=== PATIENT | female | born 1950 | race Caucasian/White ===

== ENCOUNTER 2016-06-29 07:36 | Day surgery (SDC) | payer OTHER ==
[~2016-06-29] VITALS: Ht 152.4 cm; Wt 104.3 kg
[2016-06-29 07:45] VITALS: BP 166/79; PULSE 76; RESP 17; TEMP 99.1; O2SAT 95
[2016-06-29] MEDS ORDERED: LEVO125T4 PO (08:34)
[2016-06-29] MEDS ORDERED: METF1000 PO (08:34)
[2016-06-29] MEDS ORDERED: ASPI1TAB69 PO (08:34)
[2016-06-29] MEDS ORDERED: VITA10003 PO (08:34)
[2016-06-29 08:46] LABS: AUTOMATED NEUTROPHIL # 3.8 TH/MM3 (1.8-7.7); BASOPHIL % 0.7 % (0.0-2.0); EOSINOPHIL # 0.2 TH/MM3 (0-0.4); EOSINOPHIL % 3.1 % (0.0-4.0); HEMATOCRIT 39.6 % (39.0-51.0); HEMO FLAGS DIFF FINAL; LYMPHOCYTE # 2.1 TH/MM3 (1.0-4.8); MEAN CELL VOLUME 93.6 FL (80.0-100.0); MEAN CORPUSCULAR HEMOGLOBIN 31.4 PG (27.0-34.0); MEAN CORPUSCULAR HGB CONC 33.6 % (32.0-36.0); MONO % 9.3 % (0.0-8.0); NEUT % 55.9 % (16.0-70.0); PLATELET COUNT 285 TH/MM3 (150-450); RED BLOOD COUNT 4.23 MIL/MM3 (4.50-5.90); RED CELL DISTRIBUTION WIDTH 12.8 % (11.6-17.2); WHITE BLOOD COUNT 6.9 TH/MM3 (4.0-11.0)
[2016-06-29] MEDS ORDERED: diphenhydrAMINE HCL 50 MG CAP PO SCH (09:00)
[2016-06-29] MEDS ORDERED: NS 1000P @30 MLS/HR (KVO) IV SCH (09:00)
[2016-06-29 09:07] LABS: APTT (PATIENT) 31.3 SEC (24.3-30.1); INTERNATIONAL NORMALIZED RATIO 1.3 RATIO; PROTHROMBIN TIME - PATIENT 14.2 SEC (9.8-11.6)
[2016-06-29 09:20] LABS: BICARBONATE 35.9 MEQ/L (21.0-32.0); POTASSIUM 3.9 MEQ/L (3.5-5.1)
[2016-06-29] MEDS ORDERED: HEPARIN-NS/PF INJ 500 ML ONE ×2 (09:40→09:47)
[2016-06-29] MEDS ORDERED: MIDAZOLAM HCL 2 MG/2 ML VIAL ONE (09:47)
[2016-06-29] MEDS ORDERED: ONDANSETRON HCL 4 MG/2 ML VIAL IV PRN (11:00)
[2016-06-29] MEDS ORDERED: MISC INFORMATION XX ONE (11:00)
[2016-06-29] MEDS ORDERED: ATROPINE SULFATE 1 MG/ML VIAL IV PRN (11:00)
--- NOTE | 2016-06-29 11:33 | MA ---
cc: DEJAN ACZARES DATE 06/29/2016 DATE OF 06/17/1952 PROCEDURE PERFORMED 1. Left heart catheterization 2. Selective right and left coronary angiography 3. Right heart cath catheterization INDICATIONS Symptomatic severe aortic stenosis/preoperative evaluation/[place] [employer] three symptoms. 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 The right groin was groin was prepped and draped in a sterile fashion. Using 1% lidocaine for local anesthesia and a micropuncture kit, a 5-Finnish sheath was inserted into the right common femoral artery. A 7-Finnish sheath was inserted into the right femoral vein. Right common femoral artery angiography was performed to confirm position of the sheath. Then a 7-Finnish [place] was floated under fluoroscopy to which right heart pressures were recorded, as well as O2 saturations in each chamber of the right heart. After we were finished with the right heart cath, we did a selective right and left coronary angiography with a JR-4 and a JL-4 diagnostic catheters. Angiography was taken in multiple views. The patient tolerated the procedure well without complications. Estimated blood loss less than 30 cc. Total contrast used 40 cc. The right groin access site was closed with a basket closing device. RESULTS Right heart catheterization. Wedge pressure at 31. Pulmonary pressure 66/27 with a mean of 47. Right ventricular pressure 23/15 with a mean of 14. Right atrial pressure 64. Aortic pressure 160/76 with a mean of 110. ANGIOGRAPHY 1. Right coronary artery is a dominant vessel with minimal luminal irregularities, nonobstructive coronary artery disease patent with TRENTON-III flow. The PDA is also patent with TRENTON-III flow. 2. The left main patent with nonobstructive coronary artery disease. 3. The LAD is a transapical vessel. It has minimal luminal irregularities throughout with nonobstructive coronary artery disease. There are five diagonals which are small and patent. 4. The left circumflex artery is patent with nonobstructive coronary artery disease and has a small segment AV groove circ. 5. The ramus, there is a prominent ramus intermedius branch which is patent with TRENTON-III flow. CONCLUSION 1. Normal coronary arteries 2. Symptomatic severe aortic stenosis and mitral stenosis. RECOMMENDATIONS 1. The patient was consulted to CT surgery for AVR and MVR. 2. Repeat a 2-D echocardiogram today. 3. Continue current medications. MD YOANA Hernández/AL /11:09 AM /11:21 AM HUNTER
[2016-06-29] MEDS ORDERED: IOHEXOL 350 MG/ML 50 ML BTL (for Cath Lab) OTHER ONE (12:20)
--- NOTE | 2016-06-29 16:12 | RADRPT ---
EXAM DATE/TIME: 06/29/2016 15:46 [facility] COMPARISON: No previous studies available for comparison. INDICATIONS : Evaluate for pneumonia, pneumothorax, or communicable disease. Pre op for AVR. MEDICAL HISTORY : None. SURGICAL HISTORY : cardiac cath. ENCOUNTER: Initial ACUITY: 1 day PAIN SCORE: 0/10 LOCATION: Bilateral chest FINDINGS: PA and lateral views of the chest show mild cardia megaly. Interstitial prominence within the bases. No effusions or intra-alveolar infiltrates. Bony structures are unremarkable. CONCLUSION: Cardiomegaly with interstitial prominence at the bases. Interstitial prominence could relate to mild interstitial pulmonary edema or chronic interstitial changes. Yasmany Forde Jr., MD on June 29, 2016 at 16:08 Board Certified Radiologist. This report was verified electronically.
[2016-06-29 16:13] LABS: BACTERIA, URINE RARE /hpf; BLOOD, URINE SMALL (NEG); COMMENT (UR) CULT NOT INDICATED; CULTURE IF INDICATED CULT NOT INDICATED; GLUCOSE,URINE NEG (NEG); KETONE, URINE NEG (NEG); NITRITE,URINE NEG (NEG); SQUAMOUS EPITHELIAL CELL URINE 2 /hpf (0-5); URINE COLOR YELLOW (YELLW/STRAW)
--- NOTE | 2016-06-29 17:03 | ECHLIM ---
Study Study Date:06/29/2016 STUDY CONCLUSIONS SUMMARY - Left ventricle: The cavity size was normal. Wall thickness was increased in a pattern of moderate LVH. Systolic function was vigorous. The estimated ejection fraction was in the range of 65% to 70%. Wall motion was normal; there were no regional wall motion abnormalities. - Aortic valve: Transvalvular velocity was increased. There was severe stenosis. Mild to moderate regurgitation. Valve area: 0.56cm^2(VTI). Valve area: 0.7cm^2 (Vmax). - Mitral valve: Moderately calcified annulus. Mildly calcified leaflets, . Transvalvular velocity was within the normal range. The findings are consistent with moderate to severe stenosis. Mild regurgitation. Valve area by pressure half-time: 1.36cm^2. Valve area by continuity equation (using LVOT flow): 0.6cm^2. - Left atrium: The atrium was moderately dilated. - Tricuspid valve: Mild-moderate regurgitation. - Pulmonary arteries: Systolic pressure was mildly increased. If LV function is below 40, please consider prescribing an ACEI or ARB or document rationale for non-use. PROCEDURE DATA STUDY STATUS: Elective. Procedure: Transthoracic echocardiography. Image quality was good. Scanning was performed from the parasternal, apical, and subcostal acoustic windows. Study completion: The patient tolerated the procedure well. Transthoracic echocardiography. M-mode, complete 2D, complete spectral Doppler, and color Doppler. Height: Height: 60in. Weight: Weight: 228.5lb. Body mass index: BMI: 44.7kg/m^2. Body surface area: BSA: 1.98m^2. Patient status: Inpatient. CARDIAC ANATOMY LEFT VENTRICLE: The cavity size was normal. Wall thickness was increased in a pattern of moderate LVH. Systolic function was vigorous. The estimated ejection fraction was in the range of 65% to 70%. Wall motion was normal; there were no regional wall motion abnormalities. AORTIC VALVE: Trileaflet; moderately thickened leaflets. Doppler: Transvalvular velocity was increased. There was severe stenosis. Mild to moderate regurgitation. Valve area: 0.56cm^2(VTI). Indexed valve area: 0.28cm^2/m^2 (VTI). Valve area: 0.7cm^2 (Vmax). Indexed valve area: 0.35cm^2/m^2 (Vmax). Mean gradient: 35mm Hg (S). Peak gradient: 77mm Hg (S). AORTA: Aortic root: The aortic root was normal in size. MITRAL VALVE: Moderately calcified annulus. Mildly calcified leaflets, . Doppler: Transvalvular velocity was within the normal range. The findings are consistent with moderate to severe stenosis. Mild regurgitation. Valve area by pressure half-time: 1.36cm^2. Indexed valve area by pressure half-time: 0.69cm^2/m^2. Valve area by continuity equation (using LVOT flow): 0.6cm^2. Indexed valve area by continuity equation (using LVOT flow): 0.3cm^2/m^2. Mean gradient: 14mm Hg (D). Peak gradient: 24mm Hg (D). LEFT ATRIUM: The atrium was moderately dilated. RIGHT VENTRICLE: The cavity size was normal. Wall thickness was normal. PULMONIC VALVE: Doppler: Transvalvular velocity was within the normal range. There was no evidence for stenosis. No regurgitation. TRICUSPID VALVE: Structurally normal valve. Doppler: Transvalvular velocity was within the normal range. Mild-moderate regurgitation. PULMONARY ARTERY: The main pulmonary artery was normal-sized. Systolic pressure was mildly increased. RIGHT ATRIUM: The atrium was normal in size. PERICARDIUM: There was no pericardial effusion. SYSTEMIC VEINS: Not visualized. Patient weight: 228.5lb _Ejection fraction:_ 65-75% _Fractional shortening:_ 32% up to 5Kg 5-11.5Kg 11.6-22.9Kg 23-45Kg 45-57Kg Aortic Root 7-13 <17 13-22 17-27 17-27 LA diam 6-13 <23 24-38 33-47 37-40 RVID 10-17 7-15 7-15 7-18 8-17 LVIDd 12-22 <32 24-38 33-47 37-40 LVPW 2-4 3-6 5-7 6-8 7-8 IVS 2-4 3-6 5-7 6-8 7-8 BASIC MEASUREMENTS ADULT NORMAL Aorta Root diameter, ED 28 mm DOPPLER MEASUREMENTS ADULT NORMAL Aortic valve Peak velocity, S 409 cm/s Mean velocity, S 269 cm/s VTI, S 80.9 cm Mean gradient, S 35 mm Hg Peak gradient, S 77 mm Hg Valve area, VTI 0.56 cm^2 Valve area index, VTI 0.28 cm^2/m^2 Valve area, Vmax 0.7 cm^2 Valve area index, Vmax 0.35 cm^2/m^2 Regurgitant velocity, ED 519 cm/s Regurgitant deceleration 3130 cm/s^2 Regurgitant pressure half-time 486 ms Regurgitant gradient, ED 108 mm Hg Mitral valve Peak E-wave velocity 206 cm/s Mean velocity, D 181 cm/s Deceleration time *280 ms 150-230 Pressure half-time 108 ms Mean gradient, D 14 mm Hg Peak gradient, D 24 mm Hg Valve area, pressure half-time 1.36 cm^2 Valve area index, pressure half-time 0.69 cm^2/m^2 Valve area, LVOT continuity 0.6 cm^2 Valve area index, LVOT continuity 0.3 cm^2/m^2 Tricuspid valve Regurgitant peak velocity 324 cm/s Peak RV-RA gradient, S 42 mm Hg Maximal regurgitant velocity 324 cm/s LEGEND: Mean values are shown as u=mean value. Asterisk (*) olguin values outside specified normal range. Amended Jermain Gaston [id number]
--- NOTE | 2016-06-29 17:56 | RADRPT ---
EXAM DATE/TIME: 06/29/2016 16:51 [facility] COMPARISON: No previous studies available for comparison. INDICATIONS : Preop cardiac surgery. MEDICAL HISTORY : Thyroid disease. Hypertension. Diabetes. SURGICAL HISTORY : Cardiac catheterization. ENCOUNTER: Initial ACUITY: 1 day PAIN SCORE: 0/10 LOCATION: Bilateral neck PEAK SYSTOLIC VELOCITIES (cm/sec): ICA/CCA RATIO: Right: 1.0 Left: 1.3 ICA: Right: 79 Left: 101 CCA: Right: 80 Left: 78 ECA: Right: 119 Left: 113 VERTEBRAL: Right: 54 antegrade Left: 44 antegrade Elevated flow velocities and ICA/CCA ratios have been found to correlate with increased degrees of vessel stenosis, calculated as percentage of diameter relative to a normal segment of distal ICA/CCA FINDINGS: RIGHT CAROTID: Minimal plaquing in the carotid bulb. No significant stenosis. The waveforms are within normal limit s. LEFT CAROTID: Minimal plaquing in the carotid bulb. No significant stenosis. The waveforms are within normal limit s. VERTEBRAL ARTERIES: Antegrade flow is seen in both vertebral arteries. MISCELLANEOUS: None. CONCLUSION: 1. Minimal plaquing in the carotid bulbs bilaterally. 2. However, no Doppler sonographic findings of a hemodynamically significant stenosis. Antegrade flow in both vertebral arteries. Joni Miller MD on June 29, 2016 at 17:30 Board Certified Radiologist. This report was verified electronically.
--- NOTE | 2016-06-29 19:58 | EKG ---
Date Performed: 06/29/2016 Time Performed: 08:52:28 PTAGE: 66 years EKG: Sinus rhythm with 1st degree A-V block Mild diffuse ST elevation Abnormal ECG NO PREVIOUS TRACING DOCTOR: Chloé Garcia Interpretating Date/Time 06/29/2016 19:57:30
--- NOTE | 2016-06-30 08:37 | MB ---
cc: REBECCA ROSENBERG MD DATE OF CONSULTATION: 06/29/2016 DATE OF : 1950 HISTORY OF PRESENT ILLNESS: This is a 66-year-old patient of Dr. 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 Bashir Tanner, and also Dr. Jermain Gaston, apparently was referred to [facility] for history of recently diagnosed aortic stenosis. Apparently she had rheumatic fever as a child. She has been reported to have persistent dyspnea and fatigue for the last few months. She had some bronchitis back in February, March, and in April she still was not feeling better and saw her primary care physician, underwent echocardiogram which showed severe aortic stenosis, also mitral valve disease. Repeat echocardiogram was done today and we were consulted to evaluate for aortic valve and mitral valve replacement. PAST MEDICAL HISTORY: 1. Hyperlipidemia. 2. Hypertension. 3. Hypothyroidism. 4. Heart murmur. 5. Obesity. 6. Rheumatic fever as a child. 7. Type 2 diabetes mellitus. PAST SURGICAL HISTORY: 1. Cholecystectomy. 2. Hernia repair. 3. Some fibroids removed from her uterus in the past. ALLERGIES: None known. HOME MEDICATIONS: 1. Levothyroxine 125 mics daily. 2. Metformin 1000 b.i.d. 3. Aspirin 81 p.o. daily. FAMILY HISTORY Mother at age 58 from chronic kidney disease. Father from 88 old age. SOCIAL HISTORY The patient . No tobacco or alcohol. She has five children. She moved here from [place] in 1970. REVIEW OF SYSTEMS In general, no night sweats, fever, heat and cold intolerance. Skin: No psoriasis, itching or hives. HEENT: No blurred vision, hearing loss. Respiratory: Positive for shortness of breath. Cardiovascular: No chest pain. No paroxysmal nocturnal dyspnea, no orthopnea. Gastrointestinal: No diarrhea, vomiting. Genitourinary: No burning, frequency, urgency. 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 Endocrinology: Positive for hypothyroidism and diabetes. PHYSICAL EXAMINATION: VITAL SIGNS: Blood pressure 160/80, heart rate of 76, temperature 99. GENERAL: The patient is awake, alert, no acute distress. HEAD: Head is normocephalic, atraumatic. Pupils equal and reactive. Oral mucosa pink, moist. NECK: Supple. No JVD. HEART: Heart sounds, grade 3 to 4/6 systolic murmur noted. No thrills. No rubs or gallops. LUNGS: Clear to auscultation. No wheezes, rales or rhonchi. ABDOMEN: Soft, nontender. No masses or organomegaly. EXTREMITIES: No cyanosis, clubbing or edema. LABORATORY FINDINGS Shows hemoglobin of 13, hematocrit of 39, white cell count 6.9, platelet count 285, sodium 138, potassium 3.9, BUN 10, creatinine 0.59, glucose 140, INR 1.3. IMPRESSION This is a very pleasant 66-year-old female with a history of aortic stenosis. Repeat echo also showing mitral valve disease. The cardiac films and echo will be evaluated by Dr. Rebecca Rosenberg, and evaluated for mitral valve and aortic valve surgery depending upon his decision. Will bring the patient back for surgery. We will order in the meantime, carotid ultrasounds, pulmonary function testing, and some further lab work. Dictated by: NILAY Solorio Rebecca SZYMANSKI/CHRIS /3:40 PM /8:36 AM
--- NOTE | 2016-06-30 09:03 | RSPPFT ---
DATE OF PROCEDURE: 06/29/16 COMMENTS: VOLUMES DYNAMIC: FVC and FEV1 severely reduced. FLOWS: FEV1% normal; FEF 25-75 severely reduced. IMPRESSION: Probable restrictive ventilatory defect although full lung volumes would be necessary to document this. There is some terminal airflow obstruction. Post-bronchodilator study may also be helpful if clinically indicated.
--- NOTE | 2016-06-30 12:22 | EC ---
Study Study Date:06/29/2016 STUDY CONCLUSIONS SUMMARY - Left ventricle: The cavity size was normal. Wall thickness was normal. Systolic function was normal. The estimated ejection fraction was in the range of 55% to 60%. Wall motion was normal; there were no regional wall motion abnormalities. - Aortic valve: Valve area: 1.06cm^2(VTI). Valve area: 1.07cm^2 (Vmax). - Pulmonic valve: Peak gradient: 26mm Hg (S). Recommendations: Immediate repeat study should be performed. If LV function is below 40, please consider prescribing an ACEI or ARB or document rationale for non-use. PROCEDURE DATA STUDY STATUS: Elective. Procedure: Transthoracic echocardiography. Image quality was good. Scanning was performed from the parasternal, apical, and subcostal acoustic windows. Study completion: The patient tolerated the procedure well. Transthoracic echocardiography. M-mode, complete 2D, complete spectral Doppler, and color Doppler. Height: Height: 60in. Weight: Weight: 228.5lb. Body mass index: BMI: 44.7kg/m^2. Body surface area: BSA: 1.98m^2. Patient status: Inpatient. CARDIAC ANATOMY LEFT VENTRICLE: The cavity size was normal. Wall thickness was normal. Systolic function was normal. The estimated ejection fraction was in the range of 55% to 60%. Wall motion was normal; there were no regional wall motion abnormalities. AORTIC VALVE: Trileaflet; normal thickness leaflets. Doppler: No regurgitation. Valve area: 1.06cm^2(VTI). Indexed valve area: 0.54cm^2/m^2 (VTI). Valve area: 1.07cm^2 (Vmax). Indexed valve area: 0.54cm^2/m^2 (Vmax). Mean gradient: 25mm Hg (S). Peak gradient: 45mm Hg (S). AORTA: Aortic root: The aortic root was normal in size. MITRAL VALVE: Structurally normal valve. Doppler: No regurgitation. Indexed valve area by pressure half-time: 1.01cm^2/m^2. Indexed valve area by continuity equation (using LVOT flow): 0.48cm^2/m^2. Mean gradient: 12mm Hg (D). Peak gradient: 20mm Hg (D). LEFT ATRIUM: The atrium was normal in size. RIGHT VENTRICLE: The cavity size was normal. Wall thickness was normal. PULMONIC VALVE: Doppler: Transvalvular velocity was within the normal range. There was no evidence for stenosis. No regurgitation. Peak gradient: 26mm Hg (S). TRICUSPID VALVE: Structurally normal valve. Doppler: Transvalvular velocity was within the normal range. No regurgitation. Peak gradient: 44mm Hg (D). PULMONARY ARTERY: The main pulmonary artery was normal-sized. Systolic pressure was within the normal range. RIGHT ATRIUM: The atrium was normal in size. PERICARDIUM: There was no pericardial effusion. SYSTEMIC VEINS: Inferior vena cava: The vessel was normal in size. Patient weight: 228.5lb _Ejection fraction:_ 65-75% _Fractional shortening:_ 32% up to 5Kg 5-11.5Kg 11.6-22.9Kg 23-45Kg 45-57Kg Aortic Root 7-13 <17 13-22 17-27 17-27 LA diam 6-13 <23 24-38 33-47 37-40 RVID 10-17 7-15 7-15 7-18 8-17 LVIDd 12-22 <32 24-38 33-47 37-40 LVPW 2-4 3-6 5-7 6-8 7-8 IVS 2-4 3-6 5-7 6-8 7-8 BASIC MEASUREMENTS ADULT NORMAL Left ventricle LV internal dimension, ED, chordal 49.4 mm 43-52 level, PLAX LV internal dimension, ES, chordal 33.4 mm 23-38 level, PLAX Fractional shortening, chordal level, 32 % >29 PLAX LV posterior wall thickness, ED 18.3 mm IVS/LVPW ratio, ED 0.99 <1.3 Ventricular septum Septal thickness, ED 18.1 mm Aortic valve Leaflet separation 18 mm 15-26 Left atrium Anterior-posterior dimension 43 mm Anterior-posterior dimension index 2.17 cm/m^2 <2.2 BASIC MEASUREMENTS ADULT NORMAL Aortic valve Leaflet separation 18 mm 15-26 Aorta Root diameter, ED 30 mm 20-37 DOPPLER MEASUREMENTS ADULT NORMAL Main pulmonary artery Pressure, S 25 mm Hg =30 Aortic valve Peak velocity, S 337 cm/s Mean velocity, S 233 cm/s VTI, S 80.4 cm Mean gradient, S 25 mm Hg Peak gradient, S 45 mm Hg Valve area, VTI 1.06 cm^2 Valve area index, VTI 0.54 cm^2/m^2 Valve area, Vmax 1.07 cm^2 Valve area index, Vmax 0.54 cm^2/m^2 Regurgitant velocity, ED 471 cm/s Regurgitant deceleration 3280 cm/s^2 Regurgitant pressure half-time 421 ms Regurgitant gradient, ED 89 mm Hg Mitral valve Peak E-wave velocity 202 cm/s Peak A-wave velocity 227 cm/s Mean velocity, D 160 cm/s Pressure half-time 110 ms Mean gradient, D 12 mm Hg Peak gradient, D 20 mm Hg Peak E/A ratio 0.9 Valve area index, pressure half-time 1.01 cm^2/m^2 Valve area index, LVOT continuity 0.48 cm^2/m^2 Tricuspid valve Peak gradient, D 44 mm Hg Maximal inflow velocity 332 cm/s Regurgitant peak velocity 319 cm/s Peak RV-RA gradient, S 41 mm Hg Maximal regurgitant velocity 319 cm/s Systemic veins Estimated CVP 10 mm Hg Right ventricle RV pressure, S *51 mm Hg <30 Pulmonic valve Peak velocity, S 256 cm/s Peak gradient, S 26 mm Hg LEGEND: Mean values are shown as u=mean value. Asterisk (*) olguin values outside specified normal range. Prepared and signed by Jermain Gaston [id number]
[2016-06-30 18:59] LABS: HEMOGLOBIN Ao 83.4 %; HEMOGLOBIN F 1.1 %; HEMOGLOBIN LA1C 1.8 %; HEMOGLOBIN P3 3.8 %
== END 2016-06-29 17:39 | disposition home or self-care (01) ==
LOC: EDSEX → HDOC 07:36 → HDIC 07:36 → HDOC 17:39
PROVIDERS: ATTEND Radiology Vascular & Interventional Radiology
DX: I08.0 Rheumatic disorders of both mitral and aortic valves (principal); I25.10 Atherosclerotic heart disease of native coronary artery without angina pectoris; I10 Essential (primary) hypertension; E11.9 Type 2 diabetes mellitus without complications; E78.5 Hyperlipidemia, unspecified; E03.9 Hypothyroidism, unspecified; E07.9 Disorder of thyroid, unspecified; E66.9 Obesity, unspecified; Z68.41 Body mass index [BMI] 40.0-44.9, adult; Z79.01 Long term (current) use of anticoagulants; Z79.82 Long term (current) use of aspirin; Z79.84 Long term (current) use of oral hypoglycemic drugs; Z01.818 Encounter for other preprocedural examination
CPT/HCPCS: 71020; 80048; 81001; 82810; 83036; 85025; 85610; 85730; 87641; 93005; 93306; 93308; 93457; 93880; 94010; C1760; C1769; C1893; G0269; J1644; J2250; J3010; Q0163; Q9967

== ENCOUNTER 2016-07-01 13:58 | Inpatient (IN) | payer OTHER, MEDICARE ==
[~2016-07-01] VITALS: Ht 152.4 cm; Wt 106.5 kg
[~2016-07-01 13:58] MED LIST: ASPI1TAB69 PO; LEVO125T4 PO; METF1000 PO; VITA10003 PO
[2016-07-13] VITALS (13 sets, daily range): BP systolic 79–185; BP diastolic 40–100; PULSE 60–93; RESP 12–18; TEMP 97.5–98.9; O2SAT 91–97
[2016-07-13] MEDS ORDERED: LIDOCAINE HCL 2% 100 MG/5 ML SYRINGE IV PUSH ONE (05:00)
[2016-07-13] MEDS ORDERED: AMINOCAPROIC ACID INJ 250 MG/ML 20 ML VIAL IV ONE (05:00)
[2016-07-13] MEDS ORDERED: EPINEPHrine HCL (1:1000) 1 MG/ML VIAL IV ONE (05:00)
[2016-07-13] MEDS ORDERED: MAGNESIUM SULFATE 1000 MG/2 ML VIAL (PED) IV ONE (05:00)
[2016-07-13] MEDS ORDERED: CALCIUM CHLORIDE 10% SOLN 1 GRAM/10 ML SYR IV ONE (05:00)
[2016-07-13] MEDS ORDERED: NITROGLYCERIN-DEXTROSE INJ 250 ML IV ONE (05:00)
[2016-07-13] MEDS ORDERED: ceFAZolin INJ 1,000 MG VIAL IV ONE (05:00)
[2016-07-13] MEDS ORDERED: VECURONIUM BROMIDE 10 MG VIAL IV ONE (05:00)
[2016-07-13] MEDS ORDERED: PROTAMINE SULFATE 250 MG/25 ML VIAL IV ONE (05:00)
[2016-07-13] MEDS ORDERED: HEPARIN SODIUM - SQ 10,000 UNITS/ML VIAL SQ ONE (05:00)
[2016-07-13] MEDS ORDERED: PHENYLEPHRINE HCL 10 MG/ML VIAL IV ONE (05:00)
[2016-07-13] MEDS ORDERED: ceFAZolin 2 GM PREMIX 50 ML ONE (06:32)
[2016-07-13] MEDS ORDERED: HEPARIN SODIUM - SQ 10,000 UNITS/ML VIAL ONE (06:32)
[2016-07-13] MEDS ORDERED: VANCOMYCIN HCL 1000 MG VIAL ONE (06:32)
[2016-07-13] MEDS ORDERED: METOPROLOL TARTRATE 25 MG TAB ONE (06:33)
[2016-07-13] MEDS ORDERED: CUSTODIOL HTK IRR SOLN 1,000 ML ONE ×3 (06:38→11:32)
[2016-07-13] MEDS ORDERED: ALBUMIN HUMAN 25% 12.5 GM/50 ML BAGP IV ONE (06:39)
[2016-07-13] MEDS ORDERED: POTASSIUM CHLORIDE 40 MEQ/20 ML VIAL ONE (06:39)
[2016-07-13] MEDS ORDERED: MANNITOL INJ 50 ML ONE (06:40)
[2016-07-13] MEDS ORDERED: HEPARIN SODIUM - IV 10,000 UNITS/10 ML VIAL ONE (06:41)
[2016-07-13] MEDS ORDERED: CHOL100013 PO (06:42)
[2016-07-13] MEDS ORDERED: METOPROLOL TARTRATE 25 MG TAB PO PRN (06:45)
[2016-07-13] MEDS ORDERED: CHLORHEXIDINE GLUCONATE 2 % 1 PACK (2 CLOTHS) TOPICAL PRN (06:45)
[2016-07-13] MEDS ORDERED: POVIDONE IODINE 5% (ANTISEPSIS KIT) 4 APPLICATIONS EACH NARE PRN (06:45)
[2016-07-13] MEDS ORDERED: LACTATED RINGER'S 1000 ML IV PRN (06:45)
[2016-07-13] MEDS ORDERED: SODIUM CHLORID 0.9% 500 ML IV PRN (06:45)
[2016-07-13] MEDS ORDERED: INSULIN HUMAN REGULAR 1,000 UNITS/10 ML VIAL SQ PRN (06:45)
[2016-07-13] MEDS ORDERED: PAPAVERINE 60 MG-NITROGLYCERIN 100 MCG-DILTIAZEM 100 MG in NS 100 ML IRRIGATION SCH ×4 (07:00)
[2016-07-13] MEDS ORDERED: CEFAZOLIN 500 MG in NS IRR BTL 500 ML IRRIGATION SCH (07:00)
[2016-07-13] MEDS ORDERED: ceFAZolin 2 GM PREMIX 50 ML IV SCH (07:00)
[2016-07-13] MEDS ORDERED: CHLORHEXIDINE GLUCONATE 4% SOLN 120 ML BTL TOPICAL SCH (07:00)
[2016-07-13] MEDS ORDERED: METOPROLOL TARTRATE 25 MG TAB PO SCH (07:00)
[2016-07-13] MEDS ORDERED: INSULIN REGULAR 100 UNITS in NS 100 ML IV SCH (07:00)
[2016-07-13] MEDS ORDERED: LACTATED RINGER'S 1000 ML INJ 500 ML IV PRN (13:52)
[2016-07-13] MEDS ORDERED: CALCIUM CHLORIDE INJ 1 GM in SODIUM CHLORIDE 0.9% INJ 100 ML IV PRN (14:00)
[2016-07-13] MEDS ORDERED: ACETAMINOPHEN/HYDROcodone 325 MG/5 MG TAB PO PRN ×2 (14:00)
[2016-07-13] MEDS ORDERED: ALBUMIN HUMAN 5% 12.5 GM/250 ML BOTTLE IV PRN (14:00)
[2016-07-13] MEDS ORDERED: ACETAMINOPHEN 650 MG SUPP RECTAL PRN (14:00)
[2016-07-13] MEDS ORDERED: CALCIUM CHLORIDE 10% 1 GRAM/10 ML VIAL IV PRN (14:00)
[2016-07-13] MEDS ORDERED: hydrALAZINE HCL 20 MG/ML VIAL IV PRN (14:00)
[2016-07-13] MEDS ORDERED: POTASSIUM CHLOR 20 MEQ PREMIX 100 ML IV PRN ×3 (14:00)
[2016-07-13] MEDS ORDERED: DEXTROSE 50% IN WATER 50 ML VIAL(D50) IV PUSH PRN (14:00)
[2016-07-13] MEDS ORDERED: MORPHINE SULFATE 4 MG/ML INJ IV PRN (14:00)
[2016-07-13] MEDS ORDERED: METOPROLOL TARTRATE 5 MG/5 ML VIAL IV PUSH PRN (14:00)
[2016-07-13] MEDS ORDERED: MAGNESIUM SULFATE INJ 2 GM in SODIUM CHLORIDE 0.9% INJ 100 ML IV PRN ×4 (14:00)
[2016-07-13] MEDS ORDERED: MEPERIDINE HCL 25 MG/ML VIAL IV PRN (14:00)
[2016-07-13] MEDS ORDERED: SODIUM BICARBONATE 8.4% INJ 50 ML ONE (14:15)
[2016-07-13] MEDS ORDERED: Post-op Orders (for Pharmacy) MISC OTHER ONE (14:42)
[2016-07-13] MEDS ORDERED: INSULIN REGULAR (IV INFUSION) 100 UNITS in SODIUM CHLORIDE 0.9% INJ 99 ML IV SCH (15:00)
[2016-07-13] MEDS ORDERED: PHENYLEPHRINE INJ 40 MG in DEXTROSE 5% IN WATE 500 ML INJ 496 ML IV SCH ×2 (15:00)
[2016-07-13] MEDS ORDERED: DOPamine INJ PREMIX 500 ML IV SCH (15:00)
[2016-07-13] MEDS ORDERED: NITROGLYCERIN-DEXTROSE INJ 250 ML IV SCH (15:00)
[2016-07-13] MEDS ORDERED: EPINEPHrine (1:1000) INJ 4 MG in DEXTROSE 5% IN WATER INJ 246 ML IV SCH ×2 (15:00)
[2016-07-13] MEDS ORDERED: DEXMEDETOMIDINE INJ 200 MCG in SODIUM CHLORIDE 0.9% INJ 50 ML IV SCH (15:00)
[2016-07-13] MEDS: DOBUTamine PREMIX DRIP 250 ML IV SCH (15:00)
[2016-07-13] MEDS ORDERED: CLEVIDIPINE INJ 50 ML IV SCH (15:00)
[2016-07-13] MEDS ORDERED: DEXAMETHASONE SOD PHOS 20 MG/5 ML VIAL ONE (15:02)
[2016-07-13] MEDS ORDERED: MIDAZOLAM HCL 5 MG/5 ML VIAL ONE (15:08)
[2016-07-13] MEDS ORDERED: fentaNYL CITRATE 1000 MCG/20 ML VIAL ONE (15:08)
--- NOTE | 2016-07-13 15:53 | RADRPT ---
EXAM DATE/TIME: 07/13/2016 14:43 [facility] COMPARISON: CHEST PA & LAT, June 29, 2016, 15:46. INDICATIONS : Status post CABG. MEDICAL HISTORY : None. SURGICAL HISTORY : None. ENCOUNTER: Subsequent ACUITY: 1 day PAIN SCORE: Non-responsive. LOCATION: chest FINDINGS: Portable AP view of the chest demonstrates cardiac silhouette size at the upper limits for normal. Pa tient is now post median sternotomy and CABG. ETT is present with distal tip measuring 2.9 cm from th e rick. Nasogastric tube is looped in the stomach and left subclavian central line tip is in the SV C. Mediastinal drain is present. No pneumothorax is identified. There is bilateral lower lung zone in terstitial opacity. No pleural effusion is seen. CONCLUSION: 1. Bilateral lower lung zone interstitial opacity could represent atelectasis versus consolidation. 2. Endotracheal tube tip measures 2.9 cm from the rick. Calvin Calderon MD on July 13, 2016 at 15:50 Board Certified Radiologist. This report was verified electronically.
[2016-07-13] MEDS ORDERED: POTASSIUM CHLORIDE 20 MEQ CONTROLLED RELEASE TAB PO PRN ×2 (16:00)
[2016-07-13] MEDS: ACETAMINOPHEN 1000 MG/100 ML VIAL IV SCH ×2 (16:24→21:03)
--- NOTE | 2016-07-13 16:24 | PD.OP ---
cc: Jermain Gaston MD; Dell Shaerer MD Operative Report Date of Surgery: Jul 13, 2016 Preoperative Diagnosis: Postoperative Diagnosis: Procedure: 1. Aortic Valve Replacement with a 21mm Mosaic Cinch II Tissue valve. 2. Mitral Valve Replacement with a 25 mm Mosaic Cinch Tissue Valve. 3. Septal Myomectomy . Surgeon: Dell Shearer Drycleaner(s): A Sujey Operation and Findings: PREOPERATIVE DIAGNOSES 1. Severe Aortic Stenosis. 2. Moderate Aortic Insufficiency 3. Severe Mitral Stenosis 4. Moderate Mitral Insufficiency 5. Subaortic Stenosis POSTOPERATIVE DIAGNOSES Same SURGICAL PROCEDURE 1. Aortic Valve Replacement with a 21mm Mosaic Cinch II Tissue valve. 2. Mitral Valve Replacement with a 25 mm Mosaic Cinch Tissue Valve. 3. Septal Myomectomy TECHNICAL SOLUTIONS ENGINEER WEN Mclaughlin ANESTHESIA General endotracheal. SHEAR SCRAPMAN Shaquille Weathers CRNA, Gautam Pruett MD PREPARATION ChloraPrep. NEEDLE, SPONGE AND INSTRUMENT COUNT Correct. DRAINS One 32-Setswana mediastinal tube. COMPLICATIONS None. INDICATIONS The patient is an 66 -year-old with severe aortic stenosis, insufficiency and severe mitral stenosis and regurgitation, presenting for surgical correction of the above pathology. DESCRIPTION OF PROCEDURE The patient was brought to the operating room and placed supine on the OR table. Following the induction of adequate general endotracheal anesthesia and placement of appropriate monitoring devices, the patient was then prepped and draped in the standard sterile fashion. Intraoperative JERONIMO revealed a very small aortic annulus with severe and moderate AI, severe MS and moderate MR as well as significant LVOT obstruction with hypertrophic septum. Median sternotomy was performed, the pericardium was divided in the midline and the cradle created. The patient was systemically heparinized and anticoagulation monitored by serial ACT measurements. Then 2 pursestring sutures of 2-0 Ethibond were placed on the aorta proximal to the takeoff of the innominate artery, a purse-string of 4-0 Prolene was placed on the superior vena cava, a 2- 0 Ethibond was placed on the right atrium for the inferior vena cava and a final 4-0 Prolene on the RSPV for the LV Vent. At this point, aortic and venous cannulae were introduced and attached to the arterial and venous components of the bypass circuit respectively. Antegrade cardioplegia cannula as well as the LV vent were also placed. The patient was placed on cardiopulmonary bypass and core cooling initiated to a temperature of 34 degrees centigrade. The crossclamp was applied and 1500 mL of antegrade cardioplegia solution ( [facility] HTK) was given in addition to topical cooling with slushed saline. Upon achieving adequate diastolic arrest of the heart a transverse aortotomy was performed. Direct intracoronary ostial cardioplegia was next administered into the left main and RCA respectively. The aortic valve was then excised and sent for microbiologic analysis. A right atriotomy was performed. Transeptal approach to the mitral valve was taken. The mitral valve was inspected and appeared to be severely calcified and rheumatic. Therefore plans were made to proceed with replacement of the mitral valve. The anterior leaflet was excised leaving secondary and tertiary chords intact. The posterior annulus was very heavily calcified. Decalcification was performed to allow suture passage. Horizontal mattress sutures of interrupted 2-0 Ethibond were placed on the mitral annulus with pledgets on the ventricular side. After adequate sizing, a 25 mm Mosaic Cinch Mitral valve was brought in the surgical field and the sutures passed through the skirt and the valve was situated and anchored with the Cor-Knot device. This appeared to be a good fit. The septum was next closed in 2 layers. This was with 4-0 Prolene; the 1st layer being horizontal mattress , the 2nd layer being running baseball stitch. The right atrium was similarly closed in two layers of 4-0 Prolene. Next attention was turned towards the aortic annulus. Through the aortic valve, a limited septal myomectomy was performed to create a sufficient outflow channel. Intra-op JERONIMO had revealed the septum to be 2.5 cm at its thickest portion. Approx., 1cm thick segment of muscular septum was excised. Horizontal mattress sutures of interrupted 2-0 Ethibond were placed on the aortic annulus with pledgets on the ventricular side. After adequate sizing, a 21 mm Mosaic Cinch II valve was brought in the surgical field and the sutures passed through the skirt and the valve was situated and anchored with the Cor-Knot device. This appeared to be a good fit. Gradual rewarming was initiated and the aortotomy closed in 2 layers. This was with 4-0 Prolene; the 1st layer being horizontal mattress, the 2nd layer being running baseball stitch.The cross clamp was removed and upon achieving normothermic cardiac activity, patient was weaned from CPB without any difficulty. Transesophageal echocardiography revealed a well-situated aortic and mitral prostheses with no evidence of perivalvular leak and no valvular stenosis or regurgitation. The septum appeared intact with improved LVOT. Protamine was given. Decannulation was performed and all sites were inspected for hemostasis. At this point the closure was undertaken. The pericardium was reapproximated in the midline. One 32-Fr chest tube was placed, and the sternum was reapproximated using stainless steel sternal wires. The musculo-fascial layer was then closed in 3 layers. The patient tolerated the procedure well and was transferred to open heart recovery in stable condition. Dell Shearer MD Jul 13, 2016 16:24
[2016-07-13] MEDS: ceFAZolin 2 GM PREMIX 50 ML IV SCH ×2 (16:25→23:02)
[2016-07-13] MEDS ORDERED: DEXAMETHASONE SOD PHOS 4 MG/ML VIAL IV PUSH SCH (18:00)
[2016-07-13] MEDS ORDERED: PROPOFOL 500 MG/50 ML INJ 50 ML ONE (19:04)
--- NOTE | 2016-07-13 19:05 | PD.CONS ---
[facility] Service Critical Care Medicine Consult Requested By Dr. Shearer Reason for Consult Critical care management, respiratory failure following AVR/MVR Primary Care Physician No Primary Care Physician History of Present Illness 66 yo Female with PMH of DM, hypertension, severe mitral stenosis/ aortic stenosis (gradient 33.6, valve area 0.84) secondary to rheumatic valvular disease, hypothyroidism, pulmonary HTN (RVSP 61 mm Hg). She has been experiencing dyspnea for several months and was referred by [facility] (Dr. Barber) for surgical evaluation. She has undergone bioprosthetic MVR/AVR by Dr. Shearer. Anesthesia records reviewed. She had a routine airway per documentation. She received 2500 crystalloid, 2200 Cell Saver in OR. Estimated blood loss was 250. Urine output 3 L. Postoperative JERONIMO demonstrated ejection fraction of 60%. She was undergoing postoperative vent weaning and had respiratory acidemia during C Pap trial a pH of 7.21/PaCO2 of 65/PA O2 of 64. She also had significant tongue swelling and absence of adequate endotracheal tube cuff leak. She was started on Decadron and critical care management medicine was consulted for assistance with ventilator management. Urine output has been 90 mL per hour for the last 3 hours. Hemoglobin 12.3. She is a lifetime nonsmoker. Obese. Past Family Social History Allergies: Coded Allergies: No Known Allergies (Unverified , 07/13/16) Past Medical History Aortic stenosis, mitral stenosis Hypertension Hyperlipidemia Diabetes Obesity Hypothyroidism History of Rheumatic fever Past Surgical History Cholecystectomy Hernia repair Uterine fibroid resection Reported Medications Metformin 1000 mg by mouth twice a day Aspirin 81 mill grams by mouth daily Levothyroxine 125 g by mouth daily Cholecalciferol 50,000 units by mouth weekly Family History Mother at age 58 from complications of chronic kidney disease Father at age 88 Social History Lifetime nonsmoker. No history of alcohol use. She has 5 children She is originally from [place] and relocated to the [place] in 1970. Physical Exam Vital Signs Vital Signs Date Time Temp Pulse Resp B/P Pulse Ox O2 Delivery O2 Flow Rate FiO2 07/13/16 18:33 96 50 07/13/16 18:15 94 50 07/13/16 17:33 95 50 07/13/16 16:00 65 07/13/16 15:39 96 Mechanical Ventilator 70 07/13/16 15:39 80 07/13/16 15:39 97.5 60 12 103/54 96 115/62 07/13/16 14:40 97 100 07/13/16 06:44 98.3 89 18 167/85 94 Physical Exam GENERAL: Obese, well-developed patient who is orotracheally intubated, on sedation but opens eyes, makes eye contact and follows commands. SKIN: Warm and dry, well perfused. No urticaria or rash. HEAD: Atraumatic. Normocephalic. EYES: Pupils equal and round, 2 mm and sluggishly reactive bilaterally.. No scleral icterus. Mild scleral edema bilaterally. ENT: No nasal bleeding or discharge. Mucous membranes pink and moist. She has no maxillary teeth. She does have mandibular teeth. Tongue has mild swelling. There is no laceration or bleeding. Mild face and lip swelling. NECK: Trachea midline. No JVD. CARDIOVASCULAR: Regular rate and rhythm, sinus rhythm on the monitor. No murmurs or rubs noted. CVP 14. Sternal dressing in place. Pacing wires in place. Mediastinal 32 F chest tube in place to -20 suction with 140 serous sanguinous output in the chamber. RESPIRATORY: Orotracheally intubated and on mechanical ventilation. Overbreathing vent but does remain synchronous. Clear to auscultation bilaterally. GASTROINTESTINAL: Abdomen soft, non-tender, nondistended. Bowel sounds present. OG in place with bilious output. : Quintanilla in place with yellow urine output. MUSCULOSKELETAL: Extremities without clubbing, cyanosis, or edema. NEUROLOGICAL: Awake and alert. Moves all extremities spontaneously without focal deficit. Follows commands with all extremities. Laboratory Laboratory Tests Test 07/13/16 07/13/16 06:30 06:43 Blood Type O POSITIVE O POSITIVE Antibody Screen NEGATIVE Crossmatch Leukocyte-Reduced Red Blood Cells Blood Bank Comment Date/Time Procedure Status Source Growth 07/13/16 10:20 Gram Stain - Final Resulted Wound Other 07/13/16 10:20 Wound Culture Resulted Wound Other Pending 07/13/16 10:20 Fungal Smear - Final Resulted Wound Other NO FUNGAL ELEMENTS SEEN. 07/13/16 10:20 Fungal Culture Resulted Wound Other Pending 07/13/16 10:20 Acid Fast Stain Received Wound Other Pending 07/13/16 10:20 Mycobacterial Culture Received Wound Other Pending Assessment and Plan Assessment and Plan NEURO: Postoperative pain/anxiety Propofol for sedation. Target RASS -2 Ofirmev 1 g IV every 6 hours. Hydrocodone as needed for pain Morphine as needed for breakthrough pain RESP: Acute respiratory failure Tongue swelling Decadron 6 month grams IV every 6 x4 doses. Will treat with steroids overnight and reassess tongue swelling and cuff leak in the morning with plan to extubate in am if improved. Will keep head of bed elevated. ACV tidal volume 525/rate 14/PEEP 8/FiO2 50%. Wean as tolerated for sat greater than 95%. CV: History of rheumatic heart disease Hypertension Severe Aortic stenosis/Moderate AI Severe Mitral stenosis/Moderate NH Subaortic stenosis Moderate to severe LVH Status post bioprosthetic MVR/AVR, septal myomectomy 07/13/16 (Dr. Shearer) Preoperative echocardiogram 05/12/16 severe aortic stenosis with mean gradient 33.6, valve area 0.84, moderate to severe LVH, EF 60-65%, diastolic dysfunction , moderate to severe left atrial dilation, normal RV function, RESP 61 mmHg, moderate mitral stenosis Cardiac catheterization 06/29/16normal coronaries. Amiodarone 200 g by mouth every 12 hours Aspirin 81 daily start 07/14 GI: Obesity Nothing by mouth. OGT tube to low intermittent wall suction. FEN/RENAL: Electrolyte replacement per CV surgery protocol Quintanilla in place. Monitor intake and output. Monitor creatinine. Avoid nephrotoxins. ID: Perioperative cefazolin received. Monitor for signs and symptoms of infection. HEME: Monitor CBC. ENDO: Diabetes mellitus Hypothyroidism Insulin drip per CV surgery protocol Continue synthroid 125 mcg daily 07/14 PROPH: Protonix 40 mg daily for stress ulcer prophylaxis. Teds for DVT prophylaxis. Pharmacologic DVT prophylaxis initiation when appropriate from CV surgery standpoint. ACCESS: Left subclavian introducer and triple lumen catheter placed 07/13/16 in OR #1; R radial art line placed in OR 07/13 #1. Discussed with bedside RN. Critical care time 60 minutes exclusive separately billable procedures. Yanni Sehpherd MD Jul 13, 2016 19:05
[2016-07-13] MEDS ORDERED: PROPOFOL 1000 MG/100 ML INJ 100 ML IV SCH (19:15)
[2016-07-13] MEDS: DEXAMETHASONE SOD PHOS 20 MG/5 ML VIAL IV SCH (20:57)
[2016-07-13] MEDS: PANTOPRAZOLE SODIUM 40 MG VIAL IV PUSH SCH (23:03)
[2016-07-14] VITALS (22 sets, daily range): BP systolic 85–150; BP diastolic 43–68; PULSE 78–97; RESP 14–22; TEMP 98.5–100.4; O2SAT 90–98
[2016-07-14] MEDS: DEXAMETHASONE SOD PHOS 20 MG/5 ML VIAL IV SCH (02:41)
[2016-07-14] MEDS: ACETAMINOPHEN 1000 MG/100 ML VIAL IV SCH ×2 (03:26→09:26)
[2016-07-14 05:09] LABS: HEMATOCRIT 35.2 % (35.0-46.0); MEAN CELL VOLUME 95.3 FL (80.0-100.0); MEAN CORPUSCULAR HEMOGLOBIN 30.6 PG (27.0-34.0); MEAN CORPUSCULAR HGB CONC 32.1 % (32.0-36.0); PLATELET COUNT 111 TH/MM3 (150-450); RED BLOOD COUNT 3.69 MIL/MM3 (4.00-5.30); RED CELL DISTRIBUTION WIDTH 12.6 % (11.6-17.2); REVIEW FLAG FINAL; WHITE BLOOD COUNT 13.2 TH/MM3 (4.0-11.0)
[2016-07-14 05:32] LABS: BICARBONATE 25.1 MEQ/L (21.0-32.0); MAGNESIUM 2.2 MG/DL (1.5-2.5); POTASSIUM 4.4 MEQ/L (3.5-5.1)
[2016-07-14] MEDS ORDERED: PANTOPRAZOLE SOD 40 MG DELAYED RELEASE TAB PO SCH (06:00)
--- NOTE | 2016-07-14 06:04 | RADRPT ---
EXAM DATE/TIME: 07/14/2016 05:23 [facility] COMPARISON: CHEST SINGLE AP, July 13, 2016, 14:43. INDICATIONS : Shortness of breath, possible pulmonary disease. MEDICAL HISTORY : None. SURGICAL HISTORY : None. ENCOUNTER: Subsequent ACUITY: 2 days PAIN SCORE: Non-responsive. LOCATION: Bilateral chest FINDINGS: A single view of the chest demonstrates patchy densities in the right lung slightly improved. Worseni ng left lower lobe consolidation. Endotracheal tube, nasogastric tube and left subclavian central lester e are stable in position. Osseous structures are intact. CONCLUSION: 1. Patchy densities in the right lung slightly improved. 2. Worsening left lower lobe consolidation. Chaparro Garcia MD on July 14, 2016 at 6:02 Board Certified Radiologist. This report was verified electronically.
[2016-07-14] MEDS ORDERED: FUROSEMIDE 40 MG/4 ML VIAL ONE (06:24)
--- NOTE | 2016-07-14 06:34 | HHI.CCPN ---
Subjective Remarks/Hospital Course 66 yo Female with PMH of DM, hypertension, severe mitral stenosis/ aortic stenosis (gradient 33.6, valve area 0.84) secondary to rheumatic valvular disease, hypothyroidism, pulmonary HTN (RVSP 61 mm Hg). She has been experiencing dyspnea for several months and was referred by [facility] (Dr. Barber) for surgical evaluation. She has undergone bioprosthetic MVR/AVR by Dr. Shearer. Anesthesia records reviewed. She had a routine airway per documentation. She received 2500 crystalloid, 2200 Cell Saver in OR. Estimated blood loss was 250. Urine output 3 L. Postoperative JERONIMO demonstrated ejection fraction of 60%. She was undergoing postoperative vent weaning and had respiratory acidemia during C Pap trial a pH of 7.21/PaCO2 of 65/PA O2 of 64. She also had significant tongue swelling and absence of adequate endotracheal tube cuff leak. She was started on Decadron and critical care management medicine was consulted for assistance with ventilator management. Urine output has been 90 mL per hour for the last 3 hours. Hemoglobin 12.3. She is a lifetime nonsmoker. Obese. SUBJ: Remains on 1mcg/min of neosynephrine. Wake up and follows commands. O2 sat 90% on 50 % FiO2. CXR bibasilar infiltrates. IV lasix 20 mg x1 given. Tongue swelling improved per RN Objective Vital Signs Date Time Temp Pulse Resp B/P Pulse Ox O2 Delivery O2 Flow Rate FiO2 07/14/16 04:20 90 50 07/14/16 03:00 99.5 93 14 113/52 122/52 07/14/16 03:00 Mechanical Ventilator Intake and Output 07/13/16 07/13/16 07/14/16 08:00 16:00 00:00 Intake Total 880 ml Output Total 940 ml Balance -60 ml Result Diagram: 07/14/16 0437 07/14/16 0437 Objective Remarks GENERAL: Obese, well-developed patient who is orotracheally intubated, on sedation but opens eyes, follows commands. SKIN: Warm and dry, well perfused. No urticaria or rash. HEAD: Atraumatic. Normocephalic. EYES: Pupils equal and round, 2 mm and sluggishly reactive bilaterally.. No scleral icterus. Mild scleral edema bilaterally. ENT: No nasal bleeding or discharge. Mucous membranes pink and moist. She has no maxillary teeth. She does have mandibular teeth. Tongue has mild swelling. There is no laceration or bleeding. Mild face and lip swelling. NECK: Trachea midline. No JVD. CARDIOVASCULAR: Regular rate and rhythm, sinus rhythm on the monitor. No murmurs or rubs noted. CVP 10. Sternal dressing in place. Pacing wires in place. Mediastinal 32 F chest tube in place to -20 suction with 110 serous sanguinous output overnight. RESPIRATORY: Orotracheally intubated and on mechanical ventilation. Overbreathing vent but does remain synchronous. Few rhonchi to auscultation bilaterally. GASTROINTESTINAL: Abdomen soft, non-tender, nondistended. Bowel sounds present. OG in place with bilious output. : Quintanilla in place with yellow urine output. MUSCULOSKELETAL: Extremities without clubbing, cyanosis, or edema. NEUROLOGICAL: Awake and alert. Moves all extremities spontaneously without focal deficit. Follows commands with all extremities. Urinary Catheter: Yes Assessment to: Continue Vascular Central Line Catheter: Yes Assessment to: Continue A/P Assessment and Plan NEURO: Postoperative pain/anxiety Propofol for sedation. Target RASS -2 Ofirmev 1 g IV every 6 hours. Hydrocodone as needed for pain Morphine as needed for breakthrough pain RESP: Acute respiratory failure Tongue swelling Bibasilar infiltrate/probable atelectasis Decadron 6 month grams IV every 6 x4 doses. Tongue swelling improving, check and cuff leak if positive, SBT with possible extubation ACV tidal volume 525/rate 14/PEEP 8/FiO2 50%. Wean as tolerated for sat greater than 90%. Increase PEEP to 10 Will keep head of bed elevated. CV: Severe Aortic stenosis/Moderate AI Severe Mitral stenosis/Moderate AR Subaortic stenosis Moderate to severe LVH Status post bioprosthetic MVR/AVR, septal myomectomy 07/13/16 (Dr. Shearer) History of rheumatic heart disease Hypertension Preoperative echocardiogram 05/12/16 severe aortic stenosis with mean gradient 33.6, valve area 0.84, moderate to severe LVH, EF 60-65%, diastolic dysfunction , moderate to severe left atrial dilation, normal RV function, RESP 61 mmHg, moderate mitral stenosis Cardiac catheterization 06/29/16normal coronaries. Amiodarone 200 g by mouth every 12 hours Aspirin 81 daily start 07/14 IV Lasix 20 mg x1 GI: Obesity Nothing by mouth. OGT tube to low intermittent wall suction. FEN/RENAL: Electrolyte replacement per CV surgery protocol Quintanilla in place. Monitor intake and output. Monitor creatinine. Avoid nephrotoxins. ID: Perioperative cefazolin received. Monitor for signs and symptoms of infection. Send sputum culture HEME: Monitor CBC. ENDO: Diabetes mellitus Hypothyroidism Insulin drip per CV surgery protocol Continue synthroid 125 mcg daily 07/14 PROPH: Protonix 40 mg daily for stress ulcer prophylaxis. Teds for DVT prophylaxis. Pharmacologic DVT prophylaxis initiation when appropriate from CV surgery standpoint. ACCESS: Left subclavian introducer and triple lumen catheter placed 07/13/16 in OR #2; R radial art line placed in OR 07/13 #2. Discussed with bedside RN. Critical care time 32 minutes exclusive separately billable procedures. Isidoro Simpson MD Jul 14, 2016 06:35
[2016-07-14] MEDS: DOBUTamine PREMIX DRIP 250 ML IV SCH (06:42)
[2016-07-14] MEDS: LEVOTHYROXINE SODIUM 125 MCG TAB PO SCH (07:00)
[2016-07-14] MEDS ORDERED: RESP: RACEPINEPHRINE 2.25% 0.5 ML NEB ONE (07:36)
[2016-07-14] MEDS ORDERED: RESP: ALBUTEROL 2.5 MG/IPRATROPIUM 0.5 MG NEB (SCH) ONE (07:37)
[2016-07-14] MEDS ORDERED: CHLORHEXIDINE 0.12% (ORAL KIT) 15 ML CUP MT SCH (08:00)
[2016-07-14] MEDS: ceFAZolin 2 GM PREMIX 50 ML IV SCH ×2 (08:17→16:50)
[2016-07-14] MEDS ORDERED: GLUCAGON 1 MG/ML VIAL OTHER PRN (09:00)
[2016-07-14] MEDS ORDERED: RESP: ALBUTEROL 2.5 MG/IPRATROPIUM 0.5 MG NEB (PRN) NEB (09:00)
[2016-07-14] MEDS ORDERED: DEXTROSE 50% IN WATER 50 ML VIAL(D50) IV PRN (09:00)
[2016-07-14] MEDS ORDERED: SOD PHOSPHATE/SOD BIPHOSPHATE (ADULT) ENEMA 133ML RECTAL PRN (09:00)
[2016-07-14] MEDS ORDERED: BISACODYL 10 MG SUPP RECTAL PRN (09:00)
[2016-07-14] MEDS ORDERED: RESP: RACEPINEPHRINE 2.25% 0.5 ML NEB NEB PRN (09:00)
[2016-07-14] MEDS: AMIODARONE 200 MG TAB PO SCH ×2 (09:08→20:48)
[2016-07-14] MEDS: ASPIRIN 81 MG CHEW TAB PO SCH (09:08)
[2016-07-14] MEDS ORDERED: RESP: ALBUTEROL 2.5 MG/IPRATROPIUM 0.5 MG NEB (SCH) NEB (10:00)
[2016-07-14] MEDS ORDERED: INSULIN DETEMIR 100 UNITS/ML VIAL SQ ONE (10:00)
[2016-07-14] MEDS: INSULIN ASPART SUPPLEMENTAL SCALE SQ SCH ×4 (10:10→22:00)
--- NOTE | 2016-07-14 10:16 | PD.CAR.PN ---
CVT Progress Note CVT: POD #: 1 Subjective/Hospital Course: 66/ female hx worsening dyspnea x 2 months , underwent ECHO showing severe , moderate Mitral stenosis EF 60% , cardiac cath revealed no evidence of coronary artery disease PMH: HLP, HTN, hypothyroidism, DM surgery: . 07/13 Aortic Valve Replacement with a 21mm Mosaic Cinch II Tissue valve. Mitral Valve Replacement with a 25 mm Mosaic Cinch Tissue Valve. Septal Myomectomy had some immediate postop tongue swelling, minimal cuff leak last pm, was followed by CCM given decadron q6hr, improved 07/14 extubated around 7am to NRB, very anxious , speaking alot of georgian and bible verses , anxiety improved when family arrived this am weaned off insulin gtt, get pt OOB, keep in CVICU until this afternoon, or weaned of high 02 requirement aggressive pulm toielting , CXR noted , left lower lobe consolidation Objective: GENERAL: anxious, alert to name and time SKIN: Warm and dry.prevena to chest HEAD: Normocephalic. EYES: No scleral icterus. No injection or drainage. NECK: Supple, trachea midline. No JVD or lymphadenopathy. CARDIOVASCULAR: Regular rate and rhythm without murmurs, gallops, or rubs. general edema RESPIRATORY: diminished in bases, chest tube to wall suction , no air leak Breath sounds equal bilaterally. No accessory muscle use. GASTROINTESTINAL: Abdomen soft, non-tender, nondistended. MUSCULOSKELETAL: No cyanosis, or edema. BACK: Nontender without obvious deformity. No CVA tenderness. Vital Signs Date Time Temp Pulse Resp B/P Pulse Ox O2 Delivery O2 Flow Rate FiO2 07/14/16 09:54 22 07/14/16 08:41 95 Non-Rebreather 07/14/16 08:09 95 Non-Rebreather 07/14/16 07:52 96 Non-Rebreather 15 100 07/14/16 07:28 90 Mechanical Ventilator 45 07/14/16 07:27 45 07/14/16 07:26 90 07/14/16 07:25 99.4 90 20 123/58 90 150/60 07/14/16 04:20 90 50 07/14/16 03:00 99.5 93 14 113/52 90 122/52 07/14/16 03:00 90 Mechanical Ventilator 50 07/14/16 03:00 50 07/14/16 03:00 80 07/14/16 01:00 107/51 116/49 07/14/16 00:55 90 50 07/14/16 00:00 94 50 07/14/16 00:00 85/45 95/43 07/13/16 23:50 18 07/13/16 23:00 93 07/13/16 23:00 95 Mechanical Ventilator 50 07/13/16 23:00 50 07/13/16 23:00 98.9 93 14 151/100 95 185/74 07/13/16 22:00 101/56 137/63 07/13/16 21:00 98/57 117/60 07/13/16 20:00 92/49 113/52 07/13/16 19:54 94 50 07/13/16 19:00 85 07/13/16 19:00 50 07/13/16 19:00 91 Mechanical Ventilator 50 07/13/16 19:00 98.6 85 14 79/40 91 07/13/16 18:33 96 50 07/13/16 18:15 94 50 07/13/16 17:33 95 50 07/13/16 16:00 65 07/13/16 15:39 96 Mechanical Ventilator 70 07/13/16 15:39 80 07/13/16 15:39 97.5 60 12 103/54 96 115/62 07/13/16 14:40 97 100 Labs: Laboratory Tests Test 07/14/16 04:37 White Blood Count 13.2 TH/MM3 (4.0-11.0) Red Blood Count 3.69 MIL/MM3 (4.00-5.30) Hemoglobin 11.3 GM/DL (11.6-15.3) Hematocrit 35.2 % (35.0-46.0) Mean Corpuscular Volume 95.3 FL (80.0-100.0) Mean Corpuscular Hemoglobin 30.6 PG (27.0-34.0) Mean Corpuscular Hemoglobin 32.1 % Concent (32.0-36.0) Red Cell Distribution Width 12.6 % (11.6-17.2) Platelet Count 111 TH/MM3 (150-450) Mean Platelet Volume 10.1 FL (7.0-11.0) Sodium Level 143 MEQ/L (136-145) Potassium Level 4.4 MEQ/L (3.5-5.1) Chloride Level 110 MEQ/L (98-107) Carbon Dioxide Level 25.1 MEQ/L (21.0-32.0) Anion Gap 8 MEQ/L (5-15) Blood Urea Nitrogen 21 MG/DL (7-18) Creatinine 0.60 MG/DL (0.50-1.00) Estimat Glomerular Filtration 100 ML/MIN Rate (>89) Random Glucose 117 MG/DL (74-106) Calcium Level 8.1 MG/DL (8.5-10.1) Magnesium Level 2.2 MG/DL (1.5-2.5) Result Diagram: 07/14/16 0437 07/14/16 0437 Telemetry: NSR (1) S/P MVR (mitral valve replacement) (2) S/P AVR (aortic valve replacement) Plan: ASA, amiodarone, start BB gentle diuresis wean 02, pulm toileting OOB/ PT keep in ICU till weaned off NRB mask (3) Hypertension Plan: controlled (4) Hypothyroidism Plan: resume home meds (5) Hyperlipemia Plan: on statin (6) Diabetes mellitus Plan: insulin sliding scale / diabetic diet consult certified diabetes educator Nicol Booth Jul 14, 2016 10:16
[2016-07-14] MEDS: MULTIVITAMINS/MINERALS THERAPEUTIC TAB PO SCH (10:32)
[2016-07-14] MEDS: MAGNESIUM HYDROXIDE SUSP 30 ML CUP PO SCH (10:33)
[2016-07-14] MEDS: METOPROLOL TARTRATE 25 MG TAB PO SCH ×2 (10:33→20:48)
[2016-07-14] MEDS: ONDANSETRON HCL 4 MG/2 ML VIAL IV PUSH PRN (11:15)
[2016-07-14] MEDS ORDERED: FUROSEMIDE 20 MG/2 ML VIAL IV PUSH ONE (12:00)
[2016-07-14] MEDS ORDERED: POTASSIUM CHLORIDE 10 MEQ CONTROLLED RELEASE TAB PO ONE (12:00)
[2016-07-14] MEDS: RESP: ALBUTEROL 2.5 MG/IPRATROPIUM 0.5 MG NEB (SCH) NEB ×2 (13:22→20:42)
[2016-07-14] MEDS: PANTOPRAZOLE SODIUM 40 MG VIAL IV PUSH SCH (20:48)
[2016-07-14] MEDS: SENNOSIDES 8.6 MG TAB PO SCH (20:48)
[2016-07-14] MEDS: DOCUSATE SODIUM 100 MG CAP PO SCH (20:48)
[2016-07-14] MEDS: KETOROLAC TROMETHAMINE 30 MG/ML (IVP) VIAL IV PUSH PRN (21:19)
[2016-07-15] VITALS (31 sets, daily range): BP systolic 119–144; BP diastolic 63–83; PULSE 74–102; RESP 16–22; TEMP 97.3–99.1; O2SAT 94–98
[2016-07-15] MEDS: ceFAZolin 2 GM PREMIX 50 ML IV SCH (00:23)
[2016-07-15] MEDS: INSULIN ASPART SUPPLEMENTAL SCALE SQ SCH ×6 (02:00→21:00)
[2016-07-15] MEDS: KETOROLAC TROMETHAMINE 30 MG/ML (IVP) VIAL IV PUSH PRN ×2 (03:10→13:33)
[2016-07-15 06:01] LABS: AUTOMATED NEUTROPHIL # 10.6 TH/MM3 (1.8-7.7); BASOPHIL % 0.2 % (0.0-2.0); EOSINOPHIL % 0.1 % (0.0-4.0); HEMATOCRIT 31.8 % (35.0-46.0); HEMO FLAGS DIFF FINAL; LYMPH % 16.3 % (9.0-44.0); LYMPHOCYTE # 2.5 TH/MM3 (1.0-4.8); MEAN CELL VOLUME 95.1 FL (80.0-100.0); MEAN CORPUSCULAR HEMOGLOBIN 31.9 PG (27.0-34.0); MEAN CORPUSCULAR HGB CONC 33.5 % (32.0-36.0); MONO % 13.6 % (0.0-8.0); NEUT % 69.8 % (16.0-70.0); PLATELET COUNT 112 TH/MM3 (150-450); RED BLOOD COUNT 3.35 MIL/MM3 (4.00-5.30); RED CELL DISTRIBUTION WIDTH 12.9 % (11.6-17.2); WHITE BLOOD COUNT 15.2 TH/MM3 (4.0-11.0)
[2016-07-15 06:03] LABS: ALKALINE PHOSPHATASE 56 U/L (45-117); ALT (GPT) 25 U/L (10-53); ANION GAP 5 MEQ/L (5-15); AST (GOT) 48 U/L (15-37); BICARBONATE 32.5 MEQ/L (21.0-32.0); BLOOD UREA NITROGEN 30 MG/DL (7-18); CHLORIDE 104 MEQ/L (98-107); GLOMERULAR FILTRATION RATE 83 ML/MIN (>89); MAGNESIUM 2.5 MG/DL (1.5-2.5); POTASSIUM 4.8 MEQ/L (3.5-5.1); SODIUM (NA) 141 MEQ/L (136-145); TOTAL BILIRUBIN ADULT 0.4 MG/DL (0.2-1.0)
[2016-07-15] MEDS: LEVOTHYROXINE SODIUM 125 MCG TAB PO SCH (06:19)
[2016-07-15] MEDS: RESP: ALBUTEROL 2.5 MG/IPRATROPIUM 0.5 MG NEB (SCH) NEB ×3 (07:26→19:44)
--- NOTE | 2016-07-15 07:29 | RADRPT ---
EXAM DATE/TIME: 07/15/2016 04:49 [facility] COMPARISON: CHEST SINGLE AP, July 14, 2016, 5:23. CHEST SINGLE AP, July 13, 2016, 14:43. INDICATIONS : Shortness of breath. MEDICAL HISTORY : None. SURGICAL HISTORY : None. ENCOUNTER: Subsequent ACUITY: 3 days PAIN SCORE: Non-responsive. LOCATION: Bilateral chest FINDINGS: A single view of the chest demonstrates the interval removal of the nasogastric and endotracheal tube . Less occluded second one in good position. Sternal wires and clips are stable. Persistent pulmonary hilar vascular congestion with small lung volumes. Suspect a small left pleural effusion. Osseous s tructures are intact. CONCLUSION: Swallow lungs remain status post extubation. Mild pulmonary vascular congestion. Jak Zamarripa MD on July 15, 2016 at 7:26 Board Certified Radiologist. This report was verified electronically.
--- NOTE | 2016-07-15 08:17 | EKG ---
Date Performed: 07/14/2016 Time Performed: 04:37:48 PTAGE: 66 years EKG: Sinus rhythm Left anterior fascicular block Inferior and lateral ST elevation - possible early repolarization Lat eral T wave changes are nonspecific Borderline ECG Since PREVIOUS TRACING , no significant change noted PREVIOUS TRACIN06/29/2016 08.52 DOCTOR: Rd Nguyen Interpretating Date/Time 07/15/2016 08:16:08
[2016-07-15] MEDS: POLYETHYLENE GLYCOL 17 GM PKG PO SCH (08:25)
[2016-07-15] MEDS: MAGNESIUM HYDROXIDE SUSP 30 ML CUP PO SCH (08:25)
[2016-07-15] MEDS: AMIODARONE 200 MG TAB PO SCH ×2 (08:25→21:29)
[2016-07-15] MEDS: DOCUSATE SODIUM 100 MG CAP PO SCH ×2 (08:25→21:29)
[2016-07-15] MEDS: ASPIRIN 81 MG CHEW TAB PO SCH (08:26)
[2016-07-15] MEDS: METOPROLOL TARTRATE 25 MG TAB PO SCH ×3 (08:26→21:30)
[2016-07-15] MEDS: MULTIVITAMINS/MINERALS THERAPEUTIC TAB PO SCH (08:26)
[2016-07-15] MEDS ORDERED: metFORMIN HCL 500 MG TAB PO SCH (09:00)
[2016-07-15] MEDS ORDERED: FUROSEMIDE 40 MG/4 ML VIAL IV PUSH ONE (09:00)
--- NOTE | 2016-07-15 11:56 | PD.CAR.PN ---
CVT Progress Note Subjective/Hospital Course: 66/ female hx worsening dyspnea x 2 months , underwent ECHO showing severe , moderate Mitral stenosis EF 60% , cardiac cath revealed no evidence of coronary artery disease PMH: HLP, HTN, hypothyroidism, DM surgery: . 07/13 Aortic Valve Replacement with a 21mm Mosaic Cinch II Tissue valve. Mitral Valve Replacement with a 25 mm Mosaic Cinch Tissue Valve. Septal Myomectomy had some immediate postop tongue swelling, minimal cuff leak last pm, was followed by CCM given decadron q6hr, improved 07/14 extubated around 7am to NRB, very anxious , speaking alot of malagasy and bible verses , anxiety improved when family arrived this am weaned off insulin gtt, get pt OOB, keep in CVICU until this afternoon, or weaned of high 02 requirement aggressive pulm toielting , CXR noted , left lower lobe consolidation 07/15 pt sleepy , needs aggressive pulm toielting add scheduled diuresis , dc narcotics, use ultram for pain family at bedside continue PT / OOB leave chest tubes in / drained 200cc/ 12 hrs pt will need to be started on coumadin for 4 weeks / AVR/MVR tissue valve / when chest tubes out start metformin Objective: GENERAL: SKIN: Warm and dry.prevena to chest HEAD: Normocephalic. EYES: No scleral icterus. No injection or drainage. NECK: Supple, trachea midline. No JVD or lymphadenopathy. CARDIOVASCULAR: Regular rate and rhythm without murmurs, gallops, or rubs. + 2 edema lower ext RESPIRATORY: bibasilar crackles Breath sounds equal bilaterally. No accessory muscle use. GASTROINTESTINAL: Abdomen soft, non-tender, nondistended. MUSCULOSKELETAL: No cyanosis, or edema. BACK: Nontender without obvious deformity. No CVA tenderness. Vital Signs Date Time Temp Pulse Resp B/P Pulse Ox O2 Delivery O2 Flow Rate FiO2 07/15/16 11:00 82 07/15/16 10:00 78 07/15/16 09:00 100 07/15/16 08:00 99.1 89 16 143/63 94 07/15/16 08:00 102 07/15/16 08:00 95 Nasal Cannula 4.00 07/15/16 07:54 Nasal Cannula 4.00 07/15/16 07:27 94 Nasal Cannula 6.00 07/15/16 07:00 80 4/14/17 06:36 80 07/15/16 06:00 78 07/15/16 05:00 78 07/15/16 04:23 82 07/15/16 03:41 98.7 82 22 144/71 98 07/15/16 03:00 78 07/15/16 02:00 81 07/15/16 01:00 80 07/15/16 00:07 80 07/15/16 00:00 99.0 80 22 124/70 98 07/14/16 23:16 90 07/14/16 23:15 82 07/14/16 22:00 78 07/14/16 21:00 90 07/14/16 20:45 95 Nasal Cannula 4.00 07/14/16 20:00 98.6 88 20 125/68 98 07/14/16 20:00 97 Room Air 5.00 07/14/16 20:00 90 07/14/16 19:00 92 07/14/16 18:00 90 07/14/16 17:01 88 07/14/16 16:00 93 07/14/16 15:01 98.5 87 20 139/65 94 07/14/16 15:00 93 Labs: Laboratory Tests Test 07/15/16 05:00 White Blood Count 15.2 TH/MM3 (4.0-11.0) Red Blood Count 3.35 MIL/MM3 (4.00-5.30) Hemoglobin 10.7 GM/DL (11.6-15.3) Hematocrit 31.8 % (35.0-46.0) Mean Corpuscular Volume 95.1 FL (80.0-100.0) Mean Corpuscular Hemoglobin 31.9 PG (27.0-34.0) Mean Corpuscular Hemoglobin 33.5 % Concent (32.0-36.0) Red Cell Distribution Width 12.9 % (11.6-17.2) Platelet Count 112 TH/MM3 (150-450) Mean Platelet Volume 10.4 FL (7.0-11.0) Neutrophils (%) (Auto) 69.8 % (16.0-70.0) Lymphocytes (%) (Auto) 16.3 % (9.0-44.0) Monocytes (%) (Auto) 13.6 % (0.0-8.0) Eosinophils (%) (Auto) 0.1 % (0.0-4.0) Basophils (%) (Auto) 0.2 % (0.0-2.0) Neutrophils # (Auto) 10.6 TH/MM3 (1.8-7.7) Lymphocytes # (Auto) 2.5 TH/MM3 (1.0-4.8) Monocytes # (Auto) 2.1 TH/MM3 (0-0.9) Eosinophils # (Auto) 0.0 TH/MM3 (0-0.4) Basophils # (Auto) 0.0 TH/MM3 (0-0.2) CBC Comment DIFF FINAL Differential Comment Sodium Level 141 MEQ/L (136-145) Potassium Level 4.8 MEQ/L (3.5-5.1) Chloride Level 104 MEQ/L (98-107) Carbon Dioxide Level 32.5 MEQ/L (21.0-32.0) Anion Gap 5 MEQ/L (5-15) Blood Urea Nitrogen 30 MG/DL (7-18) Creatinine 0.70 MG/DL (0.50-1.00) Estimat Glomerular Filtration 83 ML/MIN (>89) Rate Random Glucose 134 MG/DL (74-106) Calcium Level 8.2 MG/DL (8.5-10.1) Magnesium Level 2.5 MG/DL (1.5-2.5) Total Bilirubin 0.4 MG/DL (0.2-1.0) Aspartate Amino Transf 48 U/L (15-37) (AST/SGOT) Alanine Aminotransferase 25 U/L (10-53) (ALT/SGPT) Alkaline Phosphatase 56 U/L (45-117) Total Protein 5.7 GM/DL (6.4-8.2) Albumin 2.5 GM/DL (3.4-5.0) Result Diagram: 07/15/16 0500 07/15/16 0500 Telemetry: NSR (1) S/P MVR (mitral valve replacement) (2) S/P AVR (aortic valve replacement) Plan: ASA, amiodarone, increase BB scheduled diuresis wean 02, pulm toileting OOB/ PT wean 02 will need coumadin when chest tubes out for 4 weeks (3) Hypertension Plan: controlled (4) Hypothyroidism Plan: resume home meds (5) Hyperlipemia Plan: on statin (6) Diabetes mellitus Plan: insulin sliding scale / diabetic diet consult environmental educator Nicol Booth Jul 15, 2016 11:56
--- NOTE | 2016-07-15 13:24 | HHI.FF ---
Face to Face Verification Diagnosis: (1) Diabetes mellitus (2) Hyperlipemia (3) Hypothyroidism (4) Hypertension (5) S/P AVR (aortic valve replacement) (6) S/P MVR (mitral valve replacement) Physical Therapy Order: Evaluate and Treat Home Health Nursing Order: Signs/symptoms of disease process Diabetic education Wound care and dressing changes Nursing assessment with vital signs Instructions: PREVENA Single Use Negative Wound Therapy System Caregiver Instruction Sheet 1. A Prevena dressing system was applied to the chest incision during surgery , to promote wound healing. It works via a suction device (negative pressure wound therapy) to remove low to moderate levels of exudate (drainage) and infectious materials. We recommend that the device stay in place for up to seven days, from day of surgery. 2. Day of Surgery___/03/19 Day of Removal ___/ 3. The dressing should only be removed by a health long term care administrator. Please arrange removal of device to coincide with Home Health visit and or with Nursing staff at Rehab 4. If skin reddening or irritation of skin occurs, or excessive drainage, please notify the Cardiovascular Surgeons office at [phone]. 5. Light showering is permissible; however the pump should be disconnected and placed in safe location, where it will not get wet. The dressing should not be exposed to direct spray or submerged in water. No bath tub / shower only. Ensure the end of the tubing attached to the dressing is facing down so that water does not enter the top of the tube. 6. To remove Prevena dressing: press purple button to turn off device / remove the suction. Then disconnect the tubing from the pump. The fixation strips should be stretched away from the skin and the dressing lifted at one corner and peeled back until it has been fully removed. 7. After removal, it is ok to shower daily using liquid dial soap and clean wash cloth, rinse and pat dry, and leave incision open to air dry. For any concerns regarding Prevena dressing, and or wounds, please contact Sujata Harp, patient navigator at [phone] or notify the Cardiovascular Surgeons office at [phone]. Incentive spirometry Q1 hr x 10, while awake, also use acapella device hourly whole awake Sternal Breast Bone Precautions: NO pushing or pulling, ( pt must use sternal pillow to support chest with all activities and with coughing ( takes up to 3 months breast bone to heal ) All females to wear sternal bra , launder as needed Daily incision care: ok to shower daily, no tub bath. Wash all incisions with liquid dial soap, clean wash cloth to each site, rinse and pat dry. Observe for any signs of infection, such as drainage which is dark yellow, cortes, green or foul smelling. Immediately report to the surgeon any drainage from the chest incision, or legs, and for any abnormal drainage from the chest tube sites. Notify surgeon if any temp >101.5 degrees F. When specialty dressing removed/ or if you do not have one, continue to shower daily as above, then rinse and pat incision dry and paint with betadine daily x 5 days. Allow steri strips to fall off if you have any. Avoid lotions, creams, salves, oils, etc. for the first month Please see attached forms for additional instructions regarding post Open Heart specialty wound vacuum dressings. FORREST or Prevena , Dressing to be removed by Nursing staff on __07/20/16 F/U appointment: as per [place] instructions: PCP in 2 weeks, CV surgeon 2 weeks, [facility] 3-4 weeks For any questions regarding incisions/ dressing / meds / post op care or above Symptoms, Monday 8am-5pm Heart & Vascular Surgery Office ( Dr. Shearer & Dr. Montes De Oca), After Hours / Nights (5pm -8am) Weekends and Holidays Please call [facility] ([facility]) Charge Nurse I have seen patient Idalmis Barr on 07/15/16. My clinical findings support the need for the requested home health care services because: Patient has SOB Deconditioned w/ increased weakness I certify that my clinical findings support that this patient is homebound because: Post-op weakness Nicol Booth Jul 15, 2016 13:24
[2016-07-15] MEDS ORDERED: FURO1TAB60 PO (13:27)
[2016-07-15] MEDS ORDERED: POTA-163 PO (13:27)
[2016-07-15] MEDS ORDERED: AMIO200T PO (13:27)
[2016-07-15] MEDS ORDERED: THERM PO (13:27)
[2016-07-15] MEDS ORDERED: METO25TA3 PO (13:27)
[2016-07-15] MEDS ORDERED: COUM5TAB PO (13:27)
[2016-07-15] MEDS ORDERED: DOCU1CAP39 PO (13:27)
[2016-07-15] MEDS ORDERED: WALKER WHEELS/F1 MIS (15:47)
[2016-07-15] MEDS: metFORMIN HCL 500 MG TAB PO SCH (16:26)
[2016-07-15] MEDS: ONDANSETRON HCL 4 MG/2 ML VIAL IV PUSH PRN (18:15)
[2016-07-15] MEDS: traMADol HCL 50 MG TAB PO PRN (20:59)
[2016-07-15] MEDS: SENNOSIDES 8.6 MG TAB PO SCH (21:29)
[2016-07-15] MEDS: PANTOPRAZOLE SODIUM 40 MG VIAL IV PUSH SCH (21:29)
[2016-07-16] VITALS (30 sets, daily range): BP systolic 117–139; BP diastolic 60–79; PULSE 68–99; RESP 20–22; TEMP 97.9–98.3; O2SAT 96–98
[2016-07-16] MEDS: KETOROLAC TROMETHAMINE 30 MG/ML (IVP) VIAL IV PUSH PRN ×2 (00:08→13:13)
[2016-07-16] MEDS: traMADol HCL 50 MG TAB PO PRN (04:33)
[2016-07-16] MEDS: INSULIN ASPART SUPPLEMENTAL SCALE SQ SCH ×4 (06:05→21:00)
[2016-07-16] MEDS: LEVOTHYROXINE SODIUM 125 MCG TAB PO SCH (06:05)
[2016-07-16 06:13] LABS: PROTHROMBIN TIME - PATIENT 10.7 SEC (9.8-11.6)
[2016-07-16] MEDS: RESP: ALBUTEROL 2.5 MG/IPRATROPIUM 0.5 MG NEB (SCH) NEB ×3 (07:43→20:40)
[2016-07-16] MEDS: metFORMIN HCL 500 MG TAB PO SCH ×2 (08:44→18:21)
[2016-07-16] MEDS: MAGNESIUM HYDROXIDE SUSP 30 ML CUP PO SCH (08:44)
[2016-07-16] MEDS: DOCUSATE SODIUM 100 MG CAP PO SCH ×2 (08:45→21:16)
[2016-07-16] MEDS: MULTIVITAMINS/MINERALS THERAPEUTIC TAB PO SCH (08:45)
[2016-07-16] MEDS: METOPROLOL TARTRATE 25 MG TAB PO SCH ×2 (08:45→21:16)
[2016-07-16] MEDS: AMIODARONE 200 MG TAB PO SCH ×2 (08:45→21:16)
[2016-07-16] MEDS: ASPIRIN 81 MG CHEW TAB PO SCH (08:45)
[2016-07-16] MEDS: ONDANSETRON HCL 4 MG/2 ML VIAL IV PUSH PRN (09:42)
--- NOTE | 2016-07-16 13:05 | PD.CAR.PN ---
CVT Progress Note CVT: POD #: 3 Subjective/Hospital Course: 66/ female hx worsening dyspnea x 2 months , underwent ECHO showing severe , moderate Mitral stenosis EF 60% , cardiac cath revealed no evidence of coronary artery disease PMH: HLP, HTN, hypothyroidism, DM surgery: . 07/13 Aortic Valve Replacement with a 21mm Mosaic Cinch II Tissue valve. Mitral Valve Replacement with a 25 mm Mosaic Cinch Tissue Valve. Septal Myomectomy had some immediate postop tongue swelling, minimal cuff leak last pm, was followed by CCM given decadron q6hr, improved 07/14 extubated around 7am to NRB, very anxious , speaking alot of niuean and bible verses , anxiety improved when family arrived this am weaned off insulin gtt, get pt OOB, keep in CVICU until this afternoon, or weaned of high 02 requirement aggressive pulm toielting , CXR noted , left lower lobe consolidation 07/15 pt sleepy , needs aggressive pulm toielting add scheduled diuresis , dc narcotics, use ultram for pain family at bedside continue PT / OOB leave chest tubes in / drained 200cc/ 12 hrs pt will need to be started on coumadin for 4 weeks / AVR/MVR tissue valve / when chest tubes out start metformin 07/16/16 Sleepy today, not ambulating well Objective: Vital Signs Date Time Temp Pulse Resp B/P Pulse Ox O2 Delivery O2 Flow Rate FiO2 07/16/16 08:30 98.1 83 22 138/63 98 07/16/16 08:30 98 Nasal Cannula 3.00 07/16/16 07:47 97 Nasal Cannula 3.00 07/16/16 06:00 78 07/16/16 05:00 78 07/16/16 04:28 98 Nasal Cannula 2.00 07/16/16 04:26 81 20 139/74 98 07/16/16 04:00 78 07/16/16 03:00 74 07/16/16 02:00 74 07/16/16 01:00 72 07/16/16 00:00 96 Nasal Cannula 2.00 07/16/16 00:00 76 07/15/16 23:30 83 18 129/69 96 07/15/16 23:00 82 07/15/16 22:00 86 07/15/16 21:00 86 07/15/16 20:00 86 07/15/16 19:44 97 Nasal Cannula 3.00 07/15/16 19:30 95 Nasal Cannula 2.00 07/15/16 19:30 98.8 87 18 137/65 95 07/15/16 19:00 82 07/15/16 18:00 82 07/15/16 17:00 74 07/15/16 16:00 97.9 78 18 119/66 98 07/15/16 16:00 77 07/15/16 15:00 78 07/15/16 14:00 76 Labs: Laboratory Tests Test 07/16/16 05:54 Prothrombin Time 10.7 SEC (9.8-11.6) Prothromb Time International 1.0 RATIO Ratio Result Diagram: 07/15/16 0500 07/15/16 0500 Cardiovascular: RRR Telemetry: NSR Pulmonary: Decreased BS bilat GI/: decreased Bs, NT Incision: dry and intact CT: 20ml/12 hrs Plan: Remove chest tubes Up to chair, ambulate x 6 CXR in AM Diurese Stim BM (1) S/P MVR (mitral valve replacement) (2) S/P AVR (aortic valve replacement) Plan: ASA, amiodarone, increase BB scheduled diuresis wean 02, pulm toileting OOB/ PT wean 02 will need coumadin when chest tubes out for 4 weeks (3) Hypertension Plan: controlled (4) Hypothyroidism Plan: resume home meds (5) Hyperlipemia Plan: on statin (6) Diabetes mellitus Plan: insulin sliding scale / diabetic diet consult clinical informatics educator Dhara Montes De Oca MD Jul 16, 2016 13:05
[2016-07-16] MEDS: FUROSEMIDE 40 MG/4 ML VIAL IV PUSH SCH (18:21)
[2016-07-16] MEDS: PANTOPRAZOLE SODIUM 40 MG VIAL IV PUSH SCH (21:16)
[2016-07-16] MEDS: SENNOSIDES 8.6 MG TAB PO SCH (21:16)
[2016-07-17] VITALS (29 sets, daily range): BP systolic 130–151; BP diastolic 57–74; PULSE 72–96; RESP 18–22; TEMP 97.8–98.1; O2SAT 95–98
[2016-07-17] MEDS: traMADol HCL 50 MG TAB PO PRN (00:01)
[2016-07-17] MEDS: ONDANSETRON HCL 4 MG/2 ML VIAL IV PUSH PRN ×2 (00:02→12:51)
[2016-07-17] MEDS: ACETAMINOPHEN 325 MG TAB PO PRN ×2 (01:08→17:23)
[2016-07-17] MEDS: KETOROLAC TROMETHAMINE 30 MG/ML (IVP) VIAL IV PUSH PRN ×2 (04:57→11:55)
[2016-07-17] MEDS: INSULIN ASPART SUPPLEMENTAL SCALE SQ SCH ×4 (06:03→21:00)
[2016-07-17] MEDS: LEVOTHYROXINE SODIUM 125 MCG TAB PO SCH (06:09)
[2016-07-17] MEDS: MULTIVITAMINS/MINERALS THERAPEUTIC TAB PO SCH (08:28)
[2016-07-17] MEDS: MAGNESIUM HYDROXIDE SUSP 30 ML CUP PO SCH (08:28)
[2016-07-17] MEDS: DOCUSATE SODIUM 100 MG CAP PO SCH ×2 (08:29→21:30)
[2016-07-17] MEDS: metFORMIN HCL 500 MG TAB PO SCH ×2 (08:29→18:00)
[2016-07-17] MEDS: AMIODARONE 200 MG TAB PO SCH ×2 (08:29→21:30)
[2016-07-17] MEDS: ASPIRIN 81 MG CHEW TAB PO SCH (08:29)
[2016-07-17] MEDS: FUROSEMIDE 40 MG/4 ML VIAL IV PUSH SCH ×2 (08:29→18:00)
[2016-07-17] MEDS: METOPROLOL TARTRATE 25 MG TAB PO SCH ×2 (08:29→21:30)
[2016-07-17] MEDS: RESP: ALBUTEROL 2.5 MG/IPRATROPIUM 0.5 MG NEB (SCH) NEB (08:33)
[2016-07-17 09:08] LABS: PROTHROMBIN TIME - PATIENT 10.5 SEC (9.8-11.6)
--- NOTE | 2016-07-17 10:04 | PD.CAR.PN ---
CVT Progress Note CVT: POD #: 4 Subjective/Hospital Course: 66/ female hx worsening dyspnea x 2 months , underwent ECHO showing severe , moderate Mitral stenosis EF 60% , cardiac cath revealed no evidence of coronary artery disease PMH: HLP, HTN, hypothyroidism, DM surgery: . 07/13 Aortic Valve Replacement with a 21mm Mosaic Cinch II Tissue valve. Mitral Valve Replacement with a 25 mm Mosaic Cinch Tissue Valve. Septal Myomectomy had some immediate postop tongue swelling, minimal cuff leak last pm, was followed by CCM given decadron q6hr, improved 07/14 extubated around 7am to NRB, very anxious , speaking alot of micronesian and bible verses , anxiety improved when family arrived this am weaned off insulin gtt, get pt OOB, keep in CVICU until this afternoon, or weaned of high 02 requirement aggressive pulm toielting , CXR noted , left lower lobe consolidation 07/15 pt sleepy , needs aggressive pulm toielting add scheduled diuresis , dc narcotics, use ultram for pain family at bedside continue PT / OOB leave chest tubes in / drained 200cc/ 12 hrs pt will need to be started on coumadin for 4 weeks / AVR/MVR tissue valve / when chest tubes out start metformin 07/16/16 Sleepy today, not ambulating well 07/17/16 Lethargic, dyspneic Objective: Vital Signs Date Time Temp Pulse Resp B/P Pulse Ox O2 Delivery O2 Flow Rate FiO2 07/17/16 08:36 96 Nasal Cannula 3.00 07/17/16 06:00 91 07/17/16 05:00 90 07/17/16 04:22 98 Nasal Cannula 3.00 07/17/16 04:00 97.8 90 18 138/67 98 07/17/16 04:00 92 07/17/16 03:00 90 07/17/16 02:00 92 07/17/16 01:00 94 07/17/16 00:05 98 Nasal Cannula 3.00 07/17/16 00:00 81 20 136/57 98 07/17/16 00:00 96 07/16/16 23:00 92 07/16/16 22:00 80 07/16/16 21:00 84 07/16/16 20:40 96 Nasal Cannula 3.00 07/16/16 20:00 99 07/16/16 20:00 97.9 79 20 133/71 98 07/16/16 19:55 98 Nasal Cannula 3.00 07/16/16 19:00 80 07/16/16 18:01 70 07/16/16 17:01 70 07/16/16 16:00 68 07/16/16 15:15 98.3 70 20 120/60 96 07/16/16 15:15 98 Nasal Cannula 3.00 07/16/16 15:00 70 07/16/16 14:13 18 07/16/16 14:01 68 07/16/16 13:00 72 07/16/16 12:00 68 07/16/16 11:59 97.9 72 20 117/79 98 07/16/16 11:59 98 Nasal Cannula 3.00 07/16/16 11:00 68 Labs: Laboratory Tests Test 07/17/16 07:00 Prothrombin Time 10.5 SEC (9.8-11.6) Prothromb Time International 1.0 RATIO Ratio Result Diagram: 07/15/16 0500 07/15/16 0500 Cardiovascular: RRR Telemetry: NSR Pulmonary: decreased BS bilat GI/: NABS, NT Incision: dry and intact Plan: Encourage ambulation Diurese Wean O2 CXR in AM (1) S/P MVR (mitral valve replacement) (2) S/P AVR (aortic valve replacement) Plan: ASA, amiodarone, increase BB scheduled diuresis wean 02, pulm toileting OOB/ PT wean 02 will need coumadin when chest tubes out for 4 weeks (3) Hypertension Plan: controlled (4) Hypothyroidism Plan: resume home meds (5) Hyperlipemia Plan: on statin (6) Diabetes mellitus Plan: insulin sliding scale / diabetic diet consult informatics educator Dhara Montes De Oca MD Jul 17, 2016 10:04
[2016-07-17] MEDS ORDERED: ACETAMINOPHEN 325 MG TAB PO PRN (17:30)
[2016-07-17] MEDS: RESP: ALBUTEROL 2.5 MG/IPRATROPIUM 0.5 MG NEB (PRN) NEB ×2 (18:39→21:00)
[2016-07-17] MEDS: SENNOSIDES 8.6 MG TAB PO SCH (21:30)
[2016-07-17] MEDS: PANTOPRAZOLE SODIUM 40 MG VIAL IV PUSH SCH (21:30)
[2016-07-18] VITALS (25 sets, daily range): BP systolic 115–148; BP diastolic 45–73; PULSE 74–130; RESP 20–22; TEMP 97.5–98.5; O2SAT 93–96
[2016-07-18] MEDS: ACETAMINOPHEN 325 MG TAB PO PRN ×2 (03:05→09:29)
[2016-07-18] MEDS: RESP: ALBUTEROL 2.5 MG/IPRATROPIUM 0.5 MG NEB (PRN) NEB ×2 (03:17→15:50)
[2016-07-18 04:15] LABS: PROTHROMBIN TIME - PATIENT 10.9 SEC (9.8-11.6)
[2016-07-18] MEDS: INSULIN ASPART SUPPLEMENTAL SCALE SQ SCH ×4 (06:16→21:54)
[2016-07-18] MEDS: LEVOTHYROXINE SODIUM 125 MCG TAB PO SCH (06:32)
--- NOTE | 2016-07-18 06:47 | RADRPT ---
EXAM DATE/TIME: 07/18/2016 04:37 [place] COMPARISON: CHEST SINGLE AP, July 15, 2016, 4:49. INDICATIONS : Shortness of breath. possible pulmonary disease. MEDICAL HISTORY : None. SURGICAL HISTORY : None. ENCOUNTER: Subsequent ACUITY: 1 week PAIN SCORE: 0/10 LOCATION: Bilateral chest FINDINGS: A single view of the chest demonstrates persistent consolidation left lung base with bilateral small lung volumes. Mild pulmonary hilar vasculature congestion, unchanged. Central line has been removed. Clips and wires suggest CABG. The cardiomediastinal contours are unremarkable. Osseous structures a re intact. CONCLUSION: Persistent pulmonary hilar vasculature and with some consolidation left lung base unchanged. Jak Zamarripa MD on July 18, 2016 at 6:45 Board Certified Radiologist. This report was verified electronically.
[2016-07-18] MEDS: METOPROLOL TARTRATE 25 MG TAB PO SCH ×2 (09:08→20:51)
[2016-07-18] MEDS: ASPIRIN 81 MG CHEW TAB PO SCH (09:08)
[2016-07-18] MEDS: MULTIVITAMINS/MINERALS THERAPEUTIC TAB PO SCH (09:08)
[2016-07-18] MEDS: DOCUSATE SODIUM 100 MG CAP PO SCH ×2 (09:08→20:51)
[2016-07-18] MEDS: MAGNESIUM HYDROXIDE SUSP 30 ML CUP PO SCH (09:09)
[2016-07-18] MEDS: AMIODARONE 200 MG TAB PO SCH (09:09)
[2016-07-18] MEDS: metFORMIN HCL 500 MG TAB PO SCH ×2 (09:09→18:45)
[2016-07-18] MEDS: FUROSEMIDE 40 MG/4 ML VIAL IV PUSH SCH ×2 (09:11→18:44)
[2016-07-18] MEDS: POLYETHYLENE GLYCOL 17 GM PKG PO SCH (09:12)
[2016-07-18 09:42] LABS: AUTOMATED NEUTROPHIL # 7.3 TH/MM3 (1.8-7.7); BASOPHIL % 0.3 % (0.0-2.0); EOSINOPHIL # 0.3 TH/MM3 (0-0.4); EOSINOPHIL % 2.8 % (0.0-4.0); HEMATOCRIT 28.4 % (35.0-46.0); HEMO FLAGS DIFF FINAL; LYMPH % 12.8 % (9.0-44.0); LYMPHOCYTE # 1.3 TH/MM3 (1.0-4.8); MEAN CELL VOLUME 95.6 FL (80.0-100.0); MEAN CORPUSCULAR HEMOGLOBIN 31.4 PG (27.0-34.0); MEAN CORPUSCULAR HGB CONC 32.9 % (32.0-36.0); MONO % 10.5 % (0.0-8.0); NEUT % 73.6 % (16.0-70.0); PLATELET COUNT 186 TH/MM3 (150-450); RED BLOOD COUNT 2.98 MIL/MM3 (4.00-5.30); RED CELL DISTRIBUTION WIDTH 12.4 % (11.6-17.2); WHITE BLOOD COUNT 9.9 TH/MM3 (4.0-11.0)
[2016-07-18] MEDS ORDERED: AMIODARONE INJ 900 MG in D5W 500 ML (EXCEL BAG) 482 ML IV SCH (09:45)
[2016-07-18] MEDS ORDERED: AMIODARONE INJ 450 MG in D5W (EXCEL BAG) 241 ML IV SCH (09:45)
[2016-07-18] MEDS ORDERED: AMIODARONE INJ 150 MG in DEXTROSE 5% IN WATER 100ML INJ 97 ML IV ONE ×2 (09:45)
[2016-07-18 10:00] LABS: BICARBONATE 37.3 MEQ/L (21.0-32.0); MAGNESIUM 2.3 MG/DL (1.5-2.5); POTASSIUM 4.1 MEQ/L (3.5-5.1)
[2016-07-18] MEDS ORDERED: MAGNESIUM SULFATE 1 GM PREMIX 100 ML IV ONE (11:00)
[2016-07-18] MEDS ORDERED: BISACODYL 10 MG SUPP RECTAL ONE (11:15)
[2016-07-18] MEDS: POTASSIUM CHLORIDE 20 MEQ CONTROLLED RELEASE TAB PO SCH ×2 (11:15→20:51)
--- NOTE | 2016-07-18 11:28 | PD.CAR.PN ---
CVT Progress Note CVT: POD #: 5 Subjective/Hospital Course: 66/ female hx worsening dyspnea x 2 months , underwent ECHO showing severe , moderate Mitral stenosis EF 60% , cardiac cath revealed no evidence of coronary artery disease PMH: HLP, HTN, hypothyroidism, DM surgery: . 07/13 Aortic Valve Replacement with a 21mm Mosaic Cinch II Tissue valve. Mitral Valve Replacement with a 25 mm Mosaic Cinch Tissue Valve. Septal Myomectomy had some immediate postop tongue swelling, minimal cuff leak last pm, was followed by CCM given decadron q6hr, improved 07/14 extubated around 7am to NRB, very anxious , speaking alot of malagasy and bible verses , anxiety improved when family arrived this am weaned off insulin gtt, get pt OOB, keep in CVICU until this afternoon, or weaned of high 02 requirement aggressive pulm toielting , CXR noted , left lower lobe consolidation 07/15 pt sleepy , needs aggressive pulm toielting add scheduled diuresis , dc narcotics, use ultram for pain family at bedside continue PT / OOB leave chest tubes in / drained 200cc/ 12 hrs pt will need to be started on coumadin for 4 weeks / AVR/MVR tissue valve / when chest tubes out start metformin 07/16/16 Sleepy today, not ambulating well 07/17/16 Lethargic, dyspneic 07/18 pt went into afib with RVR / amiodarone bolus and gtt started additional mag pt has poor cough effort, needs aggressive pulm toileting no leukocytosis or fever, contineu diuresis eval for rehab at discharge start coumadin this pm 1600 pt still very lethargic, unable to stand without full assistance further labs pending, ECHO report pending will transfer pt to ICU for closer observation remains in Afib rate improved / on amiodarone gtt Objective: GENERAL: SKIN: Warm and dry.prevena to chest HEAD: Normocephalic. EYES: No scleral icterus. No injection or drainage. NECK: Supple, trachea midline. No JVD or lymphadenopathy. CARDIOVASCULAR: irregular rate and rhythm murmurs, gallops, or rubs + 1 edema lower ext RESPIRATORY: bibasilar crackles , left > right . No accessory muscle use. GASTROINTESTINAL: Abdomen soft, non-tender, nondistended. MUSCULOSKELETAL: No cyanosis, or edema. BACK: Nontender without obvious deformity. No CVA tenderness. Vital Signs Date Time Temp Pulse Resp B/P Pulse Ox O2 Delivery O2 Flow Rate FiO2 07/18/16 09:14 94 Nasal Cannula 3.00 07/18/16 08:00 79 07/18/16 07:30 97.8 78 20 148/68 95 07/18/16 07:00 84 07/18/16 04:00 96 Nasal Cannula 3.00 07/18/16 04:00 98.5 74 22 136/71 96 07/18/16 04:00 88 07/18/16 03:00 86 07/18/16 02:00 76 07/18/16 01:00 82 07/18/16 00:00 82 07/17/16 23:20 96 Nasal Cannula 3.00 07/17/16 23:20 98.1 78 22 151/74 96 07/17/16 23:00 83 07/17/16 22:00 94 07/17/16 21:00 74 07/17/16 21:00 95 Nasal Cannula 3.00 07/17/16 20:00 88 07/17/16 19:55 97.9 75 22 141/71 96 07/17/16 19:55 96 Nasal Cannula 3.00 07/17/16 19:00 77 07/17/16 18:01 82 07/17/16 17:01 84 07/17/16 16:00 80 07/17/16 15:15 98 Nasal Cannula 3.00 07/17/16 15:15 98.1 76 22 130/58 96 07/17/16 15:00 72 07/17/16 14:00 72 07/17/16 13:00 80 07/17/16 12:55 20 07/17/16 12:00 72 Labs: Laboratory Tests Test 07/18/16 07/18/16 03:38 09:09 Prothrombin Time 10.9 SEC (9.8-11.6) Prothromb Time International 1.0 RATIO Ratio White Blood Count 9.9 TH/MM3 (4.0-11.0) Red Blood Count 2.98 MIL/MM3 (4.00-5.30) Hemoglobin 9.3 GM/DL (11.6-15.3) Hematocrit 28.4 % (35.0-46.0) Mean Corpuscular Volume 95.6 FL (80.0-100.0) Mean Corpuscular Hemoglobin 31.4 PG (27.0-34.0) Mean Corpuscular Hemoglobin 32.9 % Concent (32.0-36.0) Red Cell Distribution Width 12.4 % (11.6-17.2) Platelet Count 186 TH/MM3 (150-450) Mean Platelet Volume 9.4 FL (7.0-11.0) Neutrophils (%) (Auto) 73.6 % (16.0-70.0) Lymphocytes (%) (Auto) 12.8 % (9.0-44.0) Monocytes (%) (Auto) 10.5 % (0.0-8.0) Eosinophils (%) (Auto) 2.8 % (0.0-4.0) Basophils (%) (Auto) 0.3 % (0.0-2.0) Neutrophils # (Auto) 7.3 TH/MM3 (1.8-7.7) Lymphocytes # (Auto) 1.3 TH/MM3 (1.0-4.8) Monocytes # (Auto) 1.0 TH/MM3 (0-0.9) Eosinophils # (Auto) 0.3 TH/MM3 (0-0.4) Basophils # (Auto) 0.0 TH/MM3 (0-0.2) CBC Comment DIFF FINAL Differential Comment Sodium Level 136 MEQ/L (136-145) Potassium Level 4.1 MEQ/L (3.5-5.1) Chloride Level 94 MEQ/L (98-107) Carbon Dioxide Level 37.3 MEQ/L (21.0-32.0) Anion Gap 5 MEQ/L (5-15) Blood Urea Nitrogen 22 MG/DL (7-18) Creatinine 0.54 MG/DL (0.50-1.00) Estimat Glomerular Filtration 113 ML/MIN Rate (>89) Random Glucose 131 MG/DL (74-106) Calcium Level 8.6 MG/DL (8.5-10.1) Magnesium Level 2.3 MG/DL (1.5-2.5) Result Diagram: 07/18/1690807/18/16908 Telemetry: afib RVR (1) S/P MVR (mitral valve replacement) (2) S/P AVR (aortic valve replacement) Plan: ASA, amiodarone, BB scheduled diuresis wean 02, pulm toileting OOB/ PT wean 02 start coumadin (3) Hypertension Plan: controlled (4) Hypothyroidism Plan: home meds (5) Hyperlipemia Plan: on statin (6) Diabetes mellitus Plan: insulin sliding scale / diabetic diet consult software educator (7) Afib (8) left lower loobe consolidation Nicol Booth Jul 18, 2016 11:10
[2016-07-18] MEDS: ENOXAPARIN SODIUM 40 MG/0.4 ML SYRINGE SQ SCH (12:00)
--- NOTE | 2016-07-18 16:01 | EKG ---
Date Performed: 07/18/2016 Time Performed: 09:39:54 PTAGE: 66 years EKG: BASELINE ARTIFACT PRESENT. Atrial fibrillation with rapid ventricular response. Possible le ft anterior fascicular block LVH with secondary repolarization abnormality Lateral ST-T changes are p robably due to ventricular hypertrophy Abnormal ECG COMPARED TO PRIOR ELECTROCARDIOGRAM, Atrial fibri llation has replaced Sinus rhythm . PREVIOUS TRACING : 07/14/2016 04.37 DOCTOR: Albert Hurt Interpretating Date/Time 07/18/2016 16:01:23
[2016-07-18] MEDS: WARFARIN SOD 5 MG TAB PO SCH (16:14)
--- NOTE | 2016-07-18 16:22 | EC ---
Study Study Date:07/18/2016 STUDY CONCLUSIONS SUMMARY - Left ventricle: The cavity size was normal. Wall thickness was increased in a pattern of moderate LVH. There was concentric hypertrophy. Systolic function was normal. The estimated ejection fraction was in the range of 60% to 65%. Although no diagnostic regional wall motion abnormality was identified, this possibility cannot be completely excluded on the basis of this study. The study is not technically sufficient to allow evaluation of LV diastolic function. - Aortic valve: A bioprosthesis was present with an elevatedmean gradient of 31 mmHg. Valve poorlyvisualized, unable to determine iffully functional. There was moderate stenosis. Valve area: 0.82cm^2(VTI). Valve area: 0.72cm^2 (Vmax). - Mitral valve: A bioprosthesis was present and poorly visualized. In limited views, the struts do intrude somewhat into the LVOT area, unsure is this is creating an elevated pressure gradient. - Left atrium: The atrium was moderately dilated. - Pulmonary arteries: PA peak pressure: 39mm Hg (S). If LV function is below 40, please consider prescribing an ACEI or ARB or document rationale for non-use. PROCEDURE DATA STUDY STATUS: Elective. Procedure: Transthoracic echocardiography. Image quality was fair. Scanning was performed from the parasternal, apical, and subcostal acoustic windows. Study completion: The patient tolerated the procedure well. Transthoracic echocardiography. M-mode, complete 2D, complete spectral Doppler, and color Doppler. Patient status: Inpatient. CARDIAC ANATOMY LEFT VENTRICLE: The cavity size was normal. Wall thickness was increased in a pattern of moderate LVH. There was concentric hypertrophy. Systolic function was normal. The estimated ejection fraction was in the range of 60% to 65%. Although no diagnostic regional wall motion abnormality was identified, this possibility cannot be completely excluded on the basis of this study. The study is not technically sufficient to allow evaluation of LV diastolic function. AORTIC VALVE: Poorly visualized. A bioprosthesis was present with an elevatedmean gradient of 31 mmHg. Valve poorlyvisualized, unable to determine iffully functional. Doppler: There was moderate stenosis. No significant regurgitation. Valve area: 0.82cm^2(VTI). Valve area: 0.72cm^2 (Vmax). Mean gradient: 31mm Hg (S). Peak gradient: 59mm Hg (S). MITRAL VALVE: A bioprosthesis was present and poorly visualized. In limited views, the struts do intrude somewhat into the LVOT area, unsure is this is creating an elevated pressure gradient. Doppler: There was no evidence for stenosis. No significant regurgitation. Valve area by pressure half-time: 2.97cm^2. LEFT ATRIUM: The atrium was moderately dilated. RIGHT VENTRICLE: The cavity size was normal. PULMONIC VALVE: Not well visualized. TRICUSPID VALVE: The valve appears to be grossly normal. Doppler: There was no evidence for stenosis. Trace to mild regurgitation. PERICARDIUM: There was no pericardial effusion. BASIC MEASUREMENTS ADULT Normal Left ventricle LV internal dimension, ED, chordal level, *30.7 mm 43-52 PLAX LV internal dimension, ES, chordal level, *21.8 mm 23-38 PLAX Fractional shortening, chordal level, PLAX *29 % >29 LV posterior wall thickness, ED 17.2 mm IVS/LVPW ratio, ED 1.13 <1.3 Ventricular septum Septal thickness, ED 19.4 mm Right ventricle RV internal dimension, ED, PLAX 26.3 mm 19-38 BASIC MEASUREMENTS ADULT Normal Aorta Root diameter, ED 28 mm 20-37 Left atrium Anterior-posterior dimension, ES *52 mm 19-40 LA/aortic root ratio 1.86 DOPPLER MEASUREMENTS ADULT Normal Main pulmonary artery Pressure, S *39 mm Hg =30 Aortic valve Peak velocity, S 383 cm/s Mean velocity, S 250 cm/s VTI, S 62.5 cm Mean gradient, S 31 mm Hg Peak gradient, S 59 mm Hg Valve area, VTI 0.82 cm^2 Valve area, Vmax 0.72 cm^2 Mitral valve Pressure half-time 74 ms Valve area, pressure half-time 2.97 cm^2 Tricuspid valve Regurgitant peak velocity 271 cm/s Peak RV-RA gradient, S 29 mm Hg Maximal regurgitant velocity 271 cm/s Systemic veins Estimated CVP 10 mm Hg Right ventricle RV pressure, S *39 mm Hg <30 LEGEND: Mean values are shown as u=mean value. Asterisk (*) olguin values outside specified normal range. Prepared and signed by Pilo Krishnan [id number]
[2016-07-18 17:15] LABS: BLOOD GAS BASE EXCESS 10.2 mmol/L (-2-2); BLOOD GAS CARBOXYHEMOGLOBIN 1.9 % (0-4); BLOOD GAS HCO3 36 mmol/L (22-26); BLOOD GAS METHEMOGLOBIN 1.1 % (0-2); BLOOD GAS O2 HGB SATURATION 89 % (90-100); BLOOD GAS PCO2 64 mmHg (38-42); BLOOD GAS PO2 68 mmHg (61-120); BLOOD GAS TOTAL HGB 9.5 G/DL (12.0-16.0); TEMP CORR TO 98.6
[2016-07-18 17:16] LABS: CRITICAL VALUE YES; DRAW SITE RT BRACHIAL; LITER FLOW 3 L/M; NUMBER OF ARTERIAL PUNCTURES 2; OXYGEN DEVICE NASAL CANNULA; STAT NO
[2016-07-18 17:36] LABS: INDIRECT BILIRUBIN 0.3 MG/DL (0.0-0.8); TOTAL BILIRUBIN ADULT 0.5 MG/DL (0.2-1.0)
[2016-07-18] MEDS: PANTOPRAZOLE SODIUM 40 MG VIAL IV PUSH SCH (20:51)
[2016-07-18] MEDS: SENNOSIDES 8.6 MG TAB PO SCH (20:51)
--- NOTE | 2016-07-18 22:09 | HHI.CCPN ---
Subjective Remarks/Hospital Course 66 yo Female with PMH of DM, hypertension, severe mitral stenosis/ aortic stenosis (gradient 33.6, valve area 0.84) secondary to rheumatic valvular disease, hypothyroidism, pulmonary HTN (RVSP 61 mm Hg). She has been experiencing dyspnea for several months and was referred by Oralia Bond (Dr. Barber) for surgical evaluation. She has undergone bioprosthetic MVR/AVR by Dr. Shearer. Anesthesia records reviewed. She had a routine airway per documentation. She received 2500 crystalloid, 2200 Cell Saver in OR. Estimated blood loss was 250. Urine output 3 L. Postoperative JERONIMO demonstrated ejection fraction of 60%. She was undergoing postoperative vent weaning and had respiratory acidemia during C Pap trial a pH of 7.21/PaCO2 of 65/PA O2 of 64. She also had significant tongue swelling and absence of adequate endotracheal tube cuff leak. She was started on Decadron and critical care management medicine was consulted for assistance with ventilator management. Urine output has been 90 mL per hour for the last 3 hours. Hemoglobin 12.3. She is a lifetime nonsmoker. Obese. SUBJ: Remains on 1mcg/min of neosynephrine. Wake up and follows commands. O2 sat 90% on 50 % FiO2. CXR bibasilar infiltrates. IV lasix 20 mg x1 given. Tongue swelling improved per RN July 18, 2016 critical care medicine was reconsulted due to decreased alertness and hypercapnia Objective Vital Signs Date Time Temp Pulse Resp B/P Pulse Ox O2 Delivery O2 Flow Rate FiO2 07/18/16 22:00 103 07/18/16 19:00 98.2 20 115/45 93 07/18/16 19:00 Nasal Cannula 6.00 07/14/16 07:52 100 Intake and Output 07/17/16 07/17/16 07/18/16 08:00 16:00 00:00 Intake Total 300 ml 840 ml Output Total 450 ml 700 ml Balance -150 ml 140 ml Result Diagram: 07/18/16 0909 07/18/16 0909 Other Results Laboratory Tests Test 07/18/16 17:04 Blood Gas Puncture Site RT BRACHIAL Blood Gas Patient Temperature 98.6 Blood Gas HCO3 36 mmol/L (22-26) Blood Gas Base Excess 10.2 mmol/L (-2-2) Blood Gas Oxygen Saturation 89 % (90-100) Arterial Blood pH 7.37 (7.380-7.420) Arterial Blood Partial 64 mmHg (38-42) Pressure CO2 Arterial Blood Partial 68 mmHg Pressure O2 (61-120) Arterial Blood Oxygen Content 12.0 Vol % (12.0-20.0) Arterial Blood 1.9 % (0-4) Carboxyhemoglobin Arterial Blood Methemoglobin 1.1 % (0-2) Blood Gas Hemoglobin 9.5 G/DL (12.0-16.0) Oxygen Delivery Device NASAL CANNULA Blood Gas Liter Flow 3 L/M Objective Remarks GENERAL: Obese, well-developed patient who is orotracheally intubated, on sedation but opens eyes, follows commands. SKIN: Warm and dry, well perfused. No urticaria or rash. HEAD: Atraumatic. Normocephalic. EYES: Pupils equal and round, 2 mm and sluggishly reactive bilaterally.. No scleral icterus. Mild scleral edema bilaterally. ENT: No nasal bleeding or discharge. Mucous membranes pink and moist. She has no maxillary teeth. She does have mandibular teeth. Tongue has mild swelling. There is no laceration or bleeding. Mild face and lip swelling. NECK: Trachea midline. No JVD. CARDIOVASCULAR: Regular rate and rhythm, sinus rhythm on the monitor. No murmurs or rubs noted. CVP 10. Sternal dressing in place. Pacing wires in place. Mediastinal 32 F chest tube in place to -20 suction with 110 serous sanguinous output overnight. RESPIRATORY: Orotracheally intubated and on mechanical ventilation. Overbreathing vent but does remain synchronous. Few rhonchi to auscultation bilaterally. GASTROINTESTINAL: Abdomen soft, non-tender, nondistended. Bowel sounds present. OG in place with bilious output. : Quintanilla in place with yellow urine output. MUSCULOSKELETAL: Extremities without clubbing, cyanosis, or edema. NEUROLOGICAL: Awake and alert. Moves all extremities spontaneously without focal deficit. Follows commands with all extremities. A/P Assessment and Plan NEURO: Metabolic toxic encephalopathy Hypercapnia BiPAP Monitor ABGs Ofirmev 1 g IV every 6 hours. Hydrocodone as needed for pain Morphine as needed for breakthrough pain RESP: Acute hypercapnic respiratory failure BiPAP Repeat ABG Will keep head of bed elevated. Pulmonary consult to follow CV: Severe Aortic stenosis/Moderate AI Severe Mitral stenosis/Moderate NV Subaortic stenosis Moderate to severe LVH Status post bioprosthetic MVR/AVR, septal myomectomy 07/13/16 (Dr. Shearer) History of rheumatic heart disease Hypertension Preoperative echocardiogram 05/12/16 severe aortic stenosis with mean gradient 33.6, valve area 0.84, moderate to severe LVH, EF 60-65%, diastolic dysfunction , moderate to severe left atrial dilation, normal RV function, RESP 61 mmHg, moderate mitral stenosis Cardiac catheterization 06/29/16normal coronaries. Amiodarone 200 g by mouth every 12 hours Aspirin 81 daily IV Lasix 20 mg x1 GI: Obesity Nothing by mouth while on BiPAP. FEN/RENAL: Electrolyte replacement per CV surgery protocol Quintanilla in place. Monitor intake and output. Monitor creatinine. Avoid nephrotoxins. ID: Perioperative cefazolin received. Monitor for signs and symptoms of infection. HEME: Monitor CBC. ENDO: Diabetes mellitus Hypothyroidism Insulin drip per CV surgery protocol Continue synthroid 125 mcg daily 07/14 PROPH: Protonix 40 mg daily for stress ulcer prophylaxis. Teds for DVT prophylaxis. Pharmacologic DVT prophylaxis initiation when appropriate from CV surgery standpoint. Discussed with bedside RN. Critical care time 35 minutes exclusive separately billable procedures. Dio Elder MD Jul 18, 2016 22:09 Dio Elder MD Jul 18, 2016 22:09
[2016-07-19] VITALS (24 sets, daily range): BP systolic 112–137; BP diastolic 57–72; PULSE 91–116; RESP 18–22; TEMP 97.6–98.7; O2SAT 94–100
[2016-07-19 05:53] LABS: BLOOD GAS CARBOXYHEMOGLOBIN 1.5 % (0-4); BLOOD GAS HCO3 37 mmol/L (22-26); BLOOD GAS METHEMOGLOBIN 1.3 % (0-2); BLOOD GAS O2 HGB SATURATION 94 % (90-100); BLOOD GAS OXYGEN CONTENT 12.5 Vol % (12.0-20.0); BLOOD GAS PCO2 64 mmHg (38-42); BLOOD GAS PO2 87 mmHg (61-120); BLOOD GAS TOTAL HGB 9.4 G/DL (12.0-16.0); TEMP CORR TO 98.6
[2016-07-19 05:54] LABS: CRITICAL VALUE YES; DRAW SITE RT BRACHIAL; LITER FLOW 4 L/M; NUMBER OF ARTERIAL PUNCTURES 1; OXYGEN DEVICE NASAL CANNULA; STAT NO
--- NOTE | 2016-07-19 06:06 | RADRPT ---
EXAM DATE/TIME: 07/19/2016 04:35 [facility] COMPARISON: CHEST SINGLE AP, July 18, 2016, 4:37. CHEST SINGLE AP, July 15, 2016, 4:49. INDICATIONS : Shortness of breath. MEDICAL HISTORY : None. SURGICAL HISTORY : None. ENCOUNTER: Subsequent ACUITY: 1 week PAIN SCORE: Non-responsive. LOCATION: Bilateral chest FINDINGS: A single view of the chest demonstrates areas of consolidation including the right upper lobe and the left lung base. Left hemidiaphragm remains elevated. The heart remains enlarged. Numerous sternal wi res are intact. There is no visible pneumothorax. Osseous structures are intact. CONCLUSION: Areas of consolidation in the left lung base and right upper lobe slightly more pronounced specifical ly in the right upper lobe since the previous study. Jak Zamarripa MD on July 19, 2016 at 6:03 Board Certified Radiologist. This report was verified electronically.
[2016-07-19 06:08] LABS: INTERNATIONAL NORMALIZED RATIO 1.1 RATIO; PROTHROMBIN TIME - PATIENT 12.1 SEC (9.8-11.6)
[2016-07-19] MEDS: LEVOTHYROXINE SODIUM 125 MCG TAB PO SCH (06:08)
[2016-07-19] MEDS: INSULIN ASPART SUPPLEMENTAL SCALE SQ SCH ×5 (06:09→21:00)
[2016-07-19 06:12] LABS: AUTOMATED NEUTROPHIL # 7.6 TH/MM3 (1.8-7.7); BASOPHIL % 0.3 % (0.0-2.0); EOSINOPHIL # 0.5 TH/MM3 (0-0.4); EOSINOPHIL % 4.8 % (0.0-4.0); HEMATOCRIT 30.1 % (35.0-46.0); HEMO FLAGS DIFF FINAL; LYMPH % 14.2 % (9.0-44.0); LYMPHOCYTE # 1.6 TH/MM3 (1.0-4.8); MEAN CORPUSCULAR HEMOGLOBIN 31.1 PG (27.0-34.0); MEAN CORPUSCULAR HGB CONC 32.7 % (32.0-36.0); MONO % 11.8 % (0.0-8.0); NEUT % 68.9 % (16.0-70.0); PLATELET COUNT 236 TH/MM3 (150-450); RED BLOOD COUNT 3.17 MIL/MM3 (4.00-5.30); RED CELL DISTRIBUTION WIDTH 12.6 % (11.6-17.2)
[2016-07-19 06:34] LABS: ALT (GPT) 18 U/L (10-53); ANION GAP 5 MEQ/L (5-15); AST (GOT) 15 U/L (15-37); BICARBONATE 37.8 MEQ/L (21.0-32.0); BLOOD UREA NITROGEN 20 MG/DL (7-18); CHLORIDE 96 MEQ/L (98-107); GLOMERULAR FILTRATION RATE 126 ML/MIN (>89); MAGNESIUM 2.2 MG/DL (1.5-2.5); POTASSIUM 4.2 MEQ/L (3.5-5.1); SODIUM (NA) 139 MEQ/L (136-145)
[2016-07-19 06:36] LABS: ALKALINE PHOSPHATASE 91 U/L (45-117); TOTAL BILIRUBIN ADULT 0.4 MG/DL (0.2-1.0)
[2016-07-19] MEDS: MAGNESIUM HYDROXIDE SUSP 30 ML CUP PO SCH (08:27)
[2016-07-19] MEDS: metFORMIN HCL 500 MG TAB PO SCH ×3 (08:27→18:00)
[2016-07-19] MEDS: POLYETHYLENE GLYCOL 17 GM PKG PO SCH (08:28)
[2016-07-19] MEDS: ASPIRIN 81 MG CHEW TAB PO SCH (08:28)
[2016-07-19] MEDS: POTASSIUM CHLORIDE 20 MEQ CONTROLLED RELEASE TAB PO SCH ×2 (08:28→09:00)
[2016-07-19] MEDS: METOPROLOL TARTRATE 25 MG TAB PO SCH ×2 (08:28→20:58)
[2016-07-19] MEDS: MULTIVITAMINS/MINERALS THERAPEUTIC TAB PO SCH (08:28)
[2016-07-19] MEDS: FUROSEMIDE 40 MG/4 ML VIAL IV PUSH SCH ×2 (08:28→09:00)
[2016-07-19] MEDS: DOCUSATE SODIUM 100 MG CAP PO SCH ×2 (08:28→20:59)
--- NOTE | 2016-07-19 08:28 | HHI.CCPN ---
Subjective Remarks/Hospital Course 66 yo Female with PMH of DM, hypertension, severe mitral stenosis/ aortic stenosis (gradient 33.6, valve area 0.84) secondary to rheumatic valvular disease, hypothyroidism, pulmonary HTN (RVSP 61 mm Hg). She has been experiencing dyspnea for several months and was referred by Oralia Bond (Dr. Barber) for surgical evaluation. She has undergone bioprosthetic MVR/AVR by Dr. Shearer. Anesthesia records reviewed. She had a routine airway per documentation. She received 2500 crystalloid, 2200 Cell Saver in OR. Estimated blood loss was 250. Urine output 3 L. Postoperative JERONIMO demonstrated ejection fraction of 60%. She was undergoing postoperative vent weaning and had respiratory acidemia during C Pap trial a pH of 7.21/PaCO2 of 65/PA O2 of 64. She also had significant tongue swelling and absence of adequate endotracheal tube cuff leak. She was started on Decadron and critical care management medicine was consulted for assistance with ventilator management. Urine output has been 90 mL per hour for the last 3 hours. Hemoglobin 12.3. She is a lifetime nonsmoker. Obese. Remains on 1mcg/min of neosynephrine. Wake up and follows commands. O2 sat 90% on 50 % FiO2. CXR bibasilar infiltrates. IV lasix 20 mg x1 given. Tongue swelling improved per RN July 18, 2016 critical care medicine was reconsulted due to decreased alertness and hypercapnia Subjective 07/19: Still retaining CO2. Did not tolerate BiPAP overnight. Only resting in chair eating pomegranate arils at bedside. No tongue swelling/airway appears patent. No edema. Objective Vital Signs Date Time Temp Pulse Resp B/P Pulse Ox O2 Delivery O2 Flow Rate FiO2 07/19/16 08:02 112 07/19/16 07:40 94 Nasal Cannula 3.00 07/19/16 07:15 98.1 21 114/67 07/19/16 00:54 40 Intake and Output 07/18/16 07/18/16 07/19/16 08:00 16:00 00:00 Intake Total 720 ml 780 ml Output Total 400 ml 600 ml Balance 320 ml 180 ml Result Diagram: 07/19/16 0532 07/19/16 0532 Imaging Last Impressions Chest X-Ray 07/19/16 0600 Signed Impressions: Service Date/Time: Tuesday, July 19, 2016 04:35 - CONCLUSION: Areas of consolidation in the left lung base and right upper lobe slightly more pronounced specifically in the right upper lobe since the previous study. Jak Zamarripa MD Objective Remarks GENERAL: 76-year-old female, currently resting in chair in no acute distress on 3 L nasal cannula SKIN: Warm and dry, no rash. HEAD: Atraumatic. Normocephalic. EYES: Pupils equal and round, 2-3 mm and reactive bilaterally.. No scleral icterus. ENT: No nasal bleeding or discharge. Mucous membranes pink and moist. NECK: Trachea midline. No JVD. Supple CARDIOVASCULAR: Distant heart sounds. RRR. S1, S2 no S4. Without murmur RESPIRATORY: Few crackles appreciated in bases bilaterally. Distant. GASTROINTESTINAL: Abdomen soft, non-tender, diabetes. Hypoactive bowel sounds are present MUSCULOSKELETAL: Extremities with trace nonpitting bilateral lower extremity NEUROLOGICAL: Awake and alert. Strength equal symmetric bilaterally. Normal sensation. A/P Assessment and Plan NEURO/PSYCH: Toxic metabolic encephalopathy secondary to CO2 retention Still retaining CO2 in a.m. ABG but compensated See respiratory Acetaminophen for feverpain management Ammonia level negative. Will check blood cultures 2/UA rule out infectious etiology RESP: Acute hypercapnic respiratory failure Nasal cannula to maintain saturations greater than equal to 90%. Currently on 3 L Incentive spirometry every hour while awake A cappella/PEP with EZPap every 4 hours Will schedule duo nebs every 4 hours more for pulmonary toilet CT thorax ordered for today. Follow up results Repeat ABG in a.m. Will keep head of bed elevated. Pulmonary consult to follow Chest x-ray revealed right upper lobe/left lower lobe infiltrate versus atelectasis/compression. CV: History of Severe Aortic stenosis/Moderate AI History of Severe Mitral stenosis/Moderate PR History of Subaortic stenosis Moderate to severe LVH Status post bioprosthetic MVR/AVR, septal myomectomy 07/13/16 (Dr. Shearer) - pathology reveals calcification aortic/mitral with chronic degeneration History of rheumatic heart disease Hypertension History of Dyslipidemia Preoperative echocardiogram 05/12/16 severe aortic stenosis with mean gradient 33.6, valve area 0.84, moderate to severe LVH, EF 60-65%, diastolic dysfunction , moderate to severe left atrial dilation, normal RV function, RESP 61 mmHg, moderate mitral stenosis Cardiac catheterization 06/29/16normal coronaries. Patient is currently on amiodarone drip. On amiodarone 200 mg by mouth twice a day at home Continue metoprolol 25 mg by mouth twice a day/home medication Aspirin 81 daily /home medication continued 1 dose of Diamox 500 mg. On Lasix 40 mg by mouth daily at home. Currently Lasix 40 mg IV twice a day GI: Obesity Nothing by mouth while on BiPAP. ADA diet when off Protonix for GI prophylaxis 40 mg IV daily Colace twice a day/MiraLAX/Senokot/milk of magnesia daily for bowel regimen. Last bowel movement 07/16 FEN/RENAL: Electrolyte replacement as clinically indicated Quintanilla in place. Monitor intake and output. 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 Pertinent cultures 07/19 - UA/blood cultures 2 ordered 07/13 - valve cultures negative Gram stain/AFB/fungal HEME: Normocytic anemia Chronic Coumadin use Monitor CBC. Currently on warfarin 5 mill grams by mouth daily/home dose. Follow-up INR daily. Currently 1.1 Lovenox 40 subcutaneous twice a day ENDO: Diabetes mellitus Hypothyroidism Patient is on metformin 1000 g by mouth twice a day/home medication Sliding-scale insulin with Accu-Cheks before meals/at bedtime to maintain euglycemia Continue Synthroid 125 mcg daily FEN: Replace electrolytes as clinically indicated Currently potassium 20 mEq by mouth twice a day while on Lasix MSK: Osteoporosis/osteoarthritis PT evaluate and treat Holding vitamin D3 50,000 units weekly/home medication PROPH: Protonix 40 mg daily for stress ulcer prophylaxis. Teds/Coumadin with Lovenox 40 mg subcutaneous twice a day for DVT prophylaxis. Critical Care: The total critical care time was 35 minutes. Time to perform other separately billable procedures was not included in the critical care time. Aaron Van MD Jul 19, 2016 08:28
[2016-07-19] MEDS ORDERED: PIPERACIL-TAZO 3.375 GM PREMIX 50 ML IV SCH (09:00)
[2016-07-19] MEDS: ACETAMINOPHEN 325 MG TAB PO PRN (09:18)
[2016-07-19] MEDS: AMIODARONE 200 MG TAB PO SCH ×2 (09:54→20:59)
--- NOTE | 2016-07-19 11:19 | MB ---
cc: BOONE SHOOK M.D. DATE OF CONSULTATION 07/19/2016 REASON FOR CONSULTATION Respiratory failure post valve surgery. HISTORY OF PRESENT ILLNESS Mrs. Barr is a 66-year-old female who has a history of rheumatic fever in her childhood and rheumatic heart disease. She, as well, has a history of hypertension, hypothyroidism who underwent surgery for severe aortic and mitral valve stenosis and moderate regurg, as well as upset by aortic stenosis. The patient had mitral and aortic valve replacement, as well as a septal myotomy on 07/13/2016. The patient has done well postoperatively, however noted to be lethargic with a pCO2 in the 60s and is back in the Intensive Care Unit at this time for closer monitoring and treatment. The patient is morbidly obese. PAST MEDICAL HISTORY Her past medical history is that of: 1. Aortic and mitral stenosis as mentioned above 2. Hypertension 3. Hyperlipidemia 4. Diabetes mellitus 5. Morbid obesity 6. Hyperparathyroidism 7. Rheumatic fever as a child. 8. Previous cholecystectomy 9. Hernia repair MEDICATIONS Medications at home include: 1. Thyroid replacement 2. Metformin 3. Aspirin 4. Cholecalciferol FAMILY HISTORY Mother at 58 of chronic kidney disease. Father at 88 of "old age". SOCIAL HISTORY , nonsmoker, has five children. Originally from [facility], [place]. PHYSICAL EXAM On exam, the patient is alert, sitting up in a chair. VITAL SIGNS: Pulse 90, respirations 18, blood pressure 114/70, oxygen saturation 94% on three liters oxygen nasal cannula. HEENT: Exam unremarkable. Eyes without icterus. NECK: No adenopathy or thyroid enlargement. CHEST: Scattered rhonchi at the bases. CARDIAC: PMI distant. 1/6 ejection systolic murmur left sternal border. ABDOMEN: Obese, lax, bowel sounds audible. EXTREMITIES: No clubbing, cyanosis or edema. LABORATORY DATA Arterial blood gas this a.m. pH 737, pCO2 64, pO2 87 on four liters oxygen nasal cannula. Sodium 139, potassium 4.20, BUN 20, creatinine 0.4, INR 1.1. White count 11,000, hemoglobin 9.8, platelets 236,000. Chest x-ray, left basilar atelectasis and/or effusion. Right upper lower lung infiltrate. IMPRESSION 1. Hypoxic hypercarbic respiratory failure 2. Status post aortic and mitral valve replacement. 3. Diabetes mellitus 4. hypertension 5. Morbid obesity PLAN The patient does have hypoxia and hypercarbia. Her hypercarbic respiratory failure and hypoventilation are well compensated which points to a chronic alveolar hypoventilation related which may be related to underlying sleep disordered breathing. May not be obstructive or central and needs to be evaluated further. At this point, it would be appropriate to place her on BiPap therapy as much as the patient can tolerate it. Meanwhile would initiate antibiotic therapy for underlying pneumonia which is noted by chest x-ray especially in the right upper lung. Changes in the left lower lung may be seen postoperatively. Pulmonary toilet obviously will be helpful. We will follow the patient's course along with you ask infectious disease to see the patient for management of underlying infection. I do thank you for asking me to partake in Mrs. Barr's care. Sincerely, Boone Shook MD WWW/AL /8:56 AM /11:10 AM
[2016-07-19 12:23] LABS: BACTERIA, URINE RARE /hpf; BLOOD, URINE NEG (NEG); GLUCOSE,URINE NEG (NEG); HYALINE CAST, URINE 4 /lpf (RARE); KETONE, URINE NEG (NEG); MUCUS URINE FEW /lpf (OCC); NITRITE,URINE NEG (NEG); SQUAMOUS EPITHELIAL CELL URINE 1 /hpf (0-5); URINE COLOR YELLOW (YELLW/STRAW)
[2016-07-19 12:24] LABS: COMMENT (UR) CULT NOT INDICATED; CULTURE IF INDICATED CULT NOT INDICATED
[2016-07-19] MEDS: ENOXAPARIN SODIUM 40 MG/0.4 ML SYRINGE SQ SCH ×3 (12:47→23:46)
[2016-07-19] MEDS ORDERED: VANCOMYCIN INJ 1,250 MG in SODIUM CHLOR 0.9% 250 ML INJ 250 ML IV ONE (13:00)
--- NOTE | 2016-07-19 13:51 | RADRPT ---
EXAM DATE/TIME: 07/19/2016 11:45 [facility] COMPARISON: CHEST SINGLE AP, July 19, 2016, 4:35. INDICATIONS : Short of breath. RADIATION DOSE: 10.00 CTDIvol (mGy) MEDICAL HISTORY : Hypertension. Hernia, umbilical. Diabetes mellitus type 1. SURGICAL HISTORY : ENCOUNTER: Subsequent ACUITY: 1 day PAIN SCALE: 3/10 LOCATION: TECHNIQUE: Volumetric scanning of the chest was performed. Using automated exposure control and adjustment of t he mA and/or kV according to patient size, radiation dose was kept as low as reasonably achievable to obtain optimal diagnostic quality images. FINDINGS: LUNGS: There is consolidation in the left lower lobe with air bronchograms. There is some mild increased gr ound substance in the upper lungs and some atelectasis. The lung volumes in the upper lobes is dimin ished due to the cardiomegaly. PLEURAE: There is no pleural thickening or pleural effusion. MEDIASTINUM: Van chamber cardiomegaly and prominence of the pulmonary arteries including the main pulmonary artery . Aortic valve prosthesis. Evidence of prior median sternotomy. AXILLAE: Within normal limits. No lymphadenopathy. MUSCULOSKELETAL: Within normal limits for patient age. CONCLUSION: Left lower lobe consolidation. Diminished lung volumes and the upper lungs. Cardiomegaly and signif icant enlargement of the pulmonary arteries. Yasmany Herring MD on July 19, 2016 at 13:42 Board Certified Radiologist. This report was verified electronically.
--- NOTE | 2016-07-19 13:54 | PD.ID.CON ---
History of Present Illness Service ID Consult Requested By Dr Shook Reason for Consult PNA Primary Care Physician No Primary Care Physician Diagnoses: History of Present Illness 66 yo Female with multiple med probnlems including morbid obesity DM, hypertension and severe mitral stenosis/ aortic stenosis secondary to rheumatic valvular disease, hypothyroidism, secondary pulmonary HTN She has been experiencing dyspnea for several months and was referred by [facility] (Dr. Barber) for surgical evaluation. On July 13 has undergone bioprosthetic MVR/AVR by Dr. Shearer. She was undergoing postoperative vent weaning and developped respiratory acidemia during C Pap trial. She also had significant tongue swelling and absence of adequate endotracheal tube cuff leak. She was started on Decadron and remained on vent Over the next week she was weaned off vvent and extubvated , but still requires nighttime BIPAP She is on NC O2, has no fever, minimal cough, no expectoration Pts WBC is normal She co constipation only, takes po SHe has no hamilton Review of Systems Respiratory: COMPLAINS OF: Shortness of breath Gastrointestinal: COMPLAINS OF: Constipation Except as stated in HPI: all other systems reviewed are Neg Past Family Social History Allergies: Coded Allergies: No Known Allergies (Unverified , 07/13/16) Past Medical History Aortic stenosis, mitral stenosis Hypertension Hyperlipidemia Diabetes Obesity Hypothyroidism History of Rheumatic fever Past Surgical History Jul 13, 2016 sp Aortic and Mitral Valve Replacement with Tissue valves, septal Myomectomy Cholecystectomy Hernia repair Uterine fibroid resection Active Ordered Medications Medications where reviewed in EMR Antibiotics Include: zosyn vancomycin Family History Mother at age 58 from complications of chronic kidney disease Father at age 88 Social History Lifetime nonsmoker. No history of alcohol use. She has 5 children She is originally from [place] and relocated to the [facility] in 1970. Physical Exam Vital Signs Vital Signs Date Time Temp Pulse Resp B/P Pulse Ox O2 Delivery O2 Flow Rate FiO2 07/19/16 12:41 100 40 07/19/16 12:36 98 Bi-Pap 40 07/19/16 12:00 97 Nasal Cannula 3.00 07/19/16 12:00 98 07/19/16 12:00 98.0 91 19 136/57 98 07/19/16 10:02 98 07/19/16 09:25 97 40 07/19/16 09:08 116 07/19/16 08:02 112 07/19/16 07:40 94 Nasal Cannula 3.00 07/19/16 07:15 115 07/19/16 07:15 97 Nasal Cannula 3.00 07/19/16 07:15 98.1 115 21 114/67 97 07/19/16 06:00 102 07/19/16 05:00 110 07/19/16 04:00 112 07/19/16 03:00 96 Nasal Cannula 4.00 07/19/16 03:00 98.0 103 18 112/72 98 07/19/16 03:00 96 07/19/16 02:00 97 07/19/16 01:00 101 07/19/16 00:54 97 40 07/19/16 00:00 99 07/18/16 23:00 103 07/18/16 23:00 97 Bi-Pap 40 07/18/16 23:00 97.8 103 20 125/73 95 07/18/16 22:00 103 07/18/16 22:00 97 Bi-Pap 40 07/18/16 21:20 96 40 07/18/16 21:00 123 07/18/16 20:00 120 07/18/16 19:00 98.2 120 20 115/45 93 07/18/16 19:00 93 Nasal Cannula 6.00 07/18/16 18:25 115 07/18/16 17:09 105 07/18/16 16:44 93 Nasal Cannula 3.00 07/18/16 16:00 98 07/18/16 15:00 97.5 93 20 135/64 93 07/18/16 15:00 112 07/18/16 14:00 100 Physical Exam CONSTITUTIONAL/GENERAL: This is a morbidly obese elderly female patient, in no apparent distress. OOB in a chair TUBES/LINES/DRAINS: SKIN: No jaundice, rashes, or lesions. Skin temperature appropriate. Not diaphoretic. HEAD: Atraumatic. Normocephalic. EYES: Pupils equal and round and reactive. Extraocular motions intact. No scleral icterus. No injection or drainage. Fundi not examined. ENT: Hearing grossly normal. Nose without bleeding or purulent drainage. Oral mucosae moist, without visible erythema, exudates, masses, or lesions. NECK: Trachea midline. Supple, nontender. CARDIOVASCULAR: Regular rate and rhythm without murmurs, gallops, or rubs. No JVD. Peripheral pulses symmetric. Distant heart sounds Dressing in place over medial sternotomy Chest tubes removed RESPIRATORY/CHEST: Symmetric, unlabored respirations. B/l crackles to auscultation Breath sounds equally diminished bilaterally. GASTROINTESTINAL: Abdomen soft, non-tender, distended. No hepato-splenomegaly, or palpable masses appreciated. No guarding. Bowel sounds present. GENITOURINARY: Without palpable bladder distension. MUSCULOSKELETAL: Extremities without clubbing, cyanosis, + 1-2 edema. No joint tenderness or effusion noted. No calf tenderness. No mottling or clubbing. LYMPHATICS: No palpable cervical or supraclavicular adenopathy. NEUROLOGICAL: Awake and alert. Motor and sensory grossly within normal limits. Follows commands. Normal speech . Moves all extremities. PSYCHIATRIC: No obvious anxiety/depression. no apparent hallucinations or other psychotic thought process. Laboratory Laboratory Tests Test 07/18/16 07/18/16 07/19/16 07/19/16 17:04 17:13 05:32 05:43 Blood Gas Puncture Site RT BRACHIAL RT BRACHIAL Blood Gas Patient Temperature 98.6 98.6 Blood Gas HCO3 36 37 Blood Gas Base Excess 10.2 11.0 Blood Gas Oxygen Saturation 89 94 Arterial Blood pH 7.37 7.37 Arterial Blood Partial 64 64 Pressure CO2 Arterial Blood Partial 68 87 Pressure O2 Arterial Blood Oxygen Content 12.0 12.5 Arterial Blood 1.9 1.5 Carboxyhemoglobin Arterial Blood Methemoglobin 1.1 1.3 Blood Gas Hemoglobin 9.5 9.4 Oxygen Delivery Device NASAL CANNULA NASAL CANNULA Blood Gas Liter Flow 3 4 Lactic Acid Level 1.1 Ammonia 25 White Blood Count 11.0 Red Blood Count 3.17 Hemoglobin 9.8 Hematocrit 30.1 Mean Corpuscular Volume 95.0 Mean Corpuscular Hemoglobin 31.1 Mean Corpuscular Hemoglobin 32.7 Concent Red Cell Distribution Width 12.6 Platelet Count 236 Mean Platelet Volume 9.3 Neutrophils (%) (Auto) 68.9 Lymphocytes (%) (Auto) 14.2 Monocytes (%) (Auto) 11.8 Eosinophils (%) (Auto) 4.8 Basophils (%) (Auto) 0.3 Neutrophils # (Auto) 7.6 Lymphocytes # (Auto) 1.6 Monocytes # (Auto) 1.3 Eosinophils # (Auto) 0.5 Basophils # (Auto) 0.0 CBC Comment DIFF FINAL Differential Comment Prothrombin Time 12.1 Prothromb Time International 1.1 Ratio Sodium Level 139 Potassium Level 4.2 Chloride Level 96 Carbon Dioxide Level 37.8 Anion Gap 5 Blood Urea Nitrogen 20 Creatinine 0.49 Estimat Glomerular Filtration 126 Rate Random Glucose 108 Calcium Level 8.5 Phosphorus Level 3.3 Magnesium Level 2.2 Total Bilirubin 0.4 Aspartate Amino Transf 15 (AST/SGOT) Alanine Aminotransferase 18 (ALT/SGPT) Alkaline Phosphatase 91 Total Protein 6.7 Albumin 2.5 Test 07/19/16 11:15 Urine Color YELLOW Urine Turbidity CLEAR Urine pH 7.0 Urine Specific [place] 1.011 Urine Protein NEG Urine Glucose (UA) NEG Urine Ketones NEG Urine Occult Blood NEG Urine Nitrite NEG Urine Bilirubin NEG Urine Urobilinogen LESS THAN 2.0 Urine Leukocyte Esterase SMALL Urine RBC 1 Urine WBC 2 Urine Squamous Epithelial 1 Cells Urine Bacteria RARE Urine Hyaline Casts 4 Urine Mucus FEW Microscopic Urinalysis Comment CULT NOT INDICATED Date/Time Procedure Status Source Growth 07/19/16 10:44 Aerobic Blood Culture Received Blood Peripheral Pending 07/19/16 10:44 Anaerobic Blood Culture Received Blood Peripheral Pending Result Diagram: 07/19/16 0532 07/19/16 0532 Imaging Last Impressions Chest X-Ray 07/19/16 0600 Signed Impressions: Service Date/Time: Tuesday, July 19, 2016 04:35 - CONCLUSION: Areas of consolidation in the left lung base and right upper lobe slightly more pronounced specifically in the right upper lobe since the previous study. Jak Zamarripa MD Assessment and Plan Assessment and Plan sp MVR/AVR in a pt with rheumatic valve disease ? PNA - at this poitn pt only finding supportive of dx of pNA are consolidations, she has nofever, no leukocytosis or expectoration Rec's: will cont for now abx, however if sputum and blood shows no signs of infx will promptly dc it obtaining sputum might be problematic in thi spt 2/2 lack of expectoration Discussed Condition With family preservation officer at b/s Mary Khan MD Jul 19, 2016 13:54
[2016-07-19] MEDS: WARFARIN SOD 5 MG TAB PO SCH (16:00)
[2016-07-19] MEDS: RESP: ALBUTEROL 2.5 MG/IPRATROPIUM 0.5 MG NEB (SCH) NEB ×4 (17:36→23:42)
--- NOTE | 2016-07-19 18:04 | PD.CAR.PN ---
CVT Progress Note CVT: POD #: 6 Subjective/Hospital Course: 66/ female hx worsening dyspnea x 2 months , underwent ECHO showing severe , moderate Mitral stenosis EF 60% , cardiac cath revealed no evidence of coronary artery disease PMH: HLP, HTN, hypothyroidism, DM surgery: . 07/13 Aortic Valve Replacement with a 21mm Mosaic Cinch II Tissue valve. Mitral Valve Replacement with a 25 mm Mosaic Cinch Tissue Valve. Septal Myomectomy had some immediate postop tongue swelling, minimal cuff leak last pm, was followed by CCM given decadron q6hr, improved 07/14 extubated around 7am to NRB, very anxious , speaking alot of [place] citizen and bible verses , anxiety improved when family arrived this am weaned off insulin gtt, get pt OOB, keep in CVICU until this afternoon, or weaned of high 02 requirement aggressive pulm toielting , CXR noted , left lower lobe consolidation 07/15 pt sleepy , needs aggressive pulm toielting add scheduled diuresis , dc narcotics, use ultram for pain family at bedside continue PT / OOB leave chest tubes in / drained 200cc/ 12 hrs pt will need to be started on coumadin for 4 weeks / AVR/MVR tissue valve / when chest tubes out start metformin 07/16/16 Sleepy today, not ambulating well 07/17/16 Lethargic, dyspneic 07/18 pt went into afib with RVR / amiodarone bolus and gtt started additional mag pt has poor cough effort, needs aggressive pulm toileting no leukocytosis or fever, contineu diuresis eval for rehab at discharge start coumadin this pm 1600 pt still very lethargic, unable to stand without full assistance further labs pending, ECHO report pending will transfer pt to ICU for closer observation remains in Afib rate improved / on amiodarone gtt 07/19 pt remains in afib rate controlled will change to po amiodarone appreciate CCM, and pulm will need outpt eval for sleep study continue bipap prn and at night concern for developing right upper lobe infiltrate ABX per ID Objective: GENERAL: still sleepy , but awakens easily SKIN: Warm and dry. prevena to chest HEAD: Normocephalic. EYES: No scleral icterus. No injection or drainage. NECK: Supple, trachea midline. No JVD or lymphadenopathy. CARDIOVASCULAR: irregular rate and rhythm without murmurs, gallops, or rubs. RESPIRATORY: diminished in bases Breath sounds equal bilaterally. No accessory muscle use. GASTROINTESTINAL: Abdomen soft, non-tender, nondistended. MUSCULOSKELETAL: No cyanosis, or edema. BACK: Nontender without obvious deformity. No CVA tenderness. Vital Signs Date Time Temp Pulse Resp B/P Pulse Ox O2 Delivery O2 Flow Rate FiO2 07/19/16 17:38 100 07/19/16 17:37 100 BiPAP 40 07/19/16 12:41 100 40 07/19/16 12:36 98 Bi-Pap 40 07/19/16 12:00 97 Nasal Cannula 3.00 07/19/16 12:00 98 07/19/16 12:00 98.0 91 19 136/57 98 07/19/16 10:02 98 07/19/16 09:25 97 40 07/19/16 09:08 116 07/19/16 08:02 112 07/19/16 07:40 94 Nasal Cannula 3.00 07/19/16 07:15 115 07/19/16 07:15 97 Nasal Cannula 3.00 07/19/16 07:15 98.1 115 21 114/67 97 07/19/16 06:00 102 07/19/16 05:00 110 07/19/16 04:00 112 07/19/16 03:00 96 Nasal Cannula 4.00 07/19/16 03:00 98.0 103 18 112/72 98 07/19/16 03:00 96 07/19/16 02:00 97 07/19/16 01:00 101 07/19/16 00:54 97 40 07/19/16 00:00 99 07/18/16 23:00 103 07/18/16 23:00 97 Bi-Pap 40 07/18/16 23:00 97.8 103 20 125/73 95 07/18/16 22:00 103 07/18/16 22:00 97 Bi-Pap 40 07/18/16 21:20 96 40 07/18/16 21:00 123 07/18/16 20:00 120 07/18/16 19:00 98.2 120 20 115/45 93 07/18/16 19:00 93 Nasal Cannula 6.00 07/18/16 18:25 115 Labs: Laboratory Tests Test 07/19/16 07/19/16 11:15 12:34 Urine Color YELLOW (YELLW/STRAW) Urine Turbidity CLEAR (CLEAR) Urine pH 7.0 (5.0-8.5) Urine Specific [place] 1.011 (1.002-1.035) Urine Protein NEG mg/dL (NEG-TRACE) Urine Glucose (UA) NEG mg/dL (NEG) Urine Ketones NEG mg/dL (NEG) Urine Occult Blood NEG (NEG) Urine Nitrite NEG (NEG) Urine Bilirubin NEG (NEG) Urine Urobilinogen LESS THAN 2.0 MG/DL (LESS THAN 2.0) Urine Leukocyte Esterase SMALL (NEG) Urine RBC 1 /hpf (0-3) Urine WBC 2 /hpf (0-5) Urine Squamous Epithelial 1 /hpf (0-5) Cells Urine Bacteria RARE /hpf (NONE) Urine Hyaline Casts 4 /lpf (RARE) Urine Mucus FEW /lpf (OCC) Microscopic Urinalysis Comment CULT NOT INDICATED Nasal Screen MRSA (PCR) NEGATIVE (NEGATIVE) Result Diagram: 07/19/16 0532 07/19/16 0532 (1) S/P MVR (mitral valve replacement) (2) S/P AVR (aortic valve replacement) Plan: ASA, amiodarone, BB scheduled diuresis wean 02, pulm toileting OOB/ PT wean 02 coumadin (3) Hypertension Plan: controlled (4) Hypothyroidism Plan: home meds (5) Hyperlipemia Plan: on statin (6) Diabetes mellitus Plan: insulin sliding scale / 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
[2016-07-19] MEDS: PIPERACIL-TAZO 4.5 GM PREMIX 100 ML IV SCH (20:53)
[2016-07-19] MEDS: PANTOPRAZOLE SODIUM 40 MG VIAL IV PUSH SCH (20:58)
[2016-07-19] MEDS: SENNOSIDES 8.6 MG TAB PO SCH (20:58)
[2016-07-20] VITALS (21 sets, daily range): BP systolic 106–155; BP diastolic 55–77; PULSE 82–135; RESP 14–24; TEMP 96.2–98.9; O2SAT 96–100
[2016-07-20] MEDS: PIPERACIL-TAZO 4.5 GM PREMIX 100 ML IV SCH ×3 (01:50→18:23)
[2016-07-20] MEDS: RESP: ALBUTEROL 2.5 MG/IPRATROPIUM 0.5 MG NEB (SCH) NEB ×5 (03:31→20:29)
[2016-07-20 04:48] LABS: AUTOMATED NEUTROPHIL # 8.1 TH/MM3 (1.8-7.7); BASOPHIL # 0.1 TH/MM3 (0-0.2); BASOPHIL % 0.5 % (0.0-2.0); EOSINOPHIL # 0.7 TH/MM3 (0-0.4); EOSINOPHIL % 6.2 % (0.0-4.0); HEMATOCRIT 28.5 % (35.0-46.0); HEMO FLAGS DIFF FINAL; LYMPH % 14.8 % (9.0-44.0); LYMPHOCYTE # 1.8 TH/MM3 (1.0-4.8); MEAN CELL VOLUME 96.3 FL (80.0-100.0); MEAN CORPUSCULAR HEMOGLOBIN 30.9 PG (27.0-34.0); MONO % 10.1 % (0.0-8.0); NEUT % 68.4 % (16.0-70.0); PLATELET COUNT 255 TH/MM3 (150-450); RED BLOOD COUNT 2.96 MIL/MM3 (4.00-5.30); RED CELL DISTRIBUTION WIDTH 12.2 % (11.6-17.2); WHITE BLOOD COUNT 11.9 TH/MM3 (4.0-11.0)
[2016-07-20 04:51] LABS: INTERNATIONAL NORMALIZED RATIO 1.8 RATIO
[2016-07-20 05:07] LABS: ALKALINE PHOSPHATASE 91 U/L (45-117); ALT (GPT) 17 U/L (10-53); ANION GAP 7 MEQ/L (5-15); AST (GOT) 15 U/L (15-37); BICARBONATE 36.1 MEQ/L (21.0-32.0); BLOOD UREA NITROGEN 15 MG/DL (7-18); CHLORIDE 96 MEQ/L (98-107); GLOMERULAR FILTRATION RATE 100 ML/MIN (>89); MAGNESIUM 2.2 MG/DL (1.5-2.5); POTASSIUM 3.7 MEQ/L (3.5-5.1); SODIUM (NA) 139 MEQ/L (136-145); TOTAL BILIRUBIN ADULT 0.4 MG/DL (0.2-1.0)
[2016-07-20 05:34] LABS: BLOOD GAS BASE EXCESS 8.7 mmol/L (-2-2); BLOOD GAS CARBOXYHEMOGLOBIN 1.1 % (0-4); BLOOD GAS HCO3 34 mmol/L (22-26); BLOOD GAS METHEMOGLOBIN 0.9 % (0-2); BLOOD GAS O2 HGB SATURATION 95 % (90-100); BLOOD GAS PCO2 61 mmHg (38-42); BLOOD GAS PO2 98 mmHg (61-120); BLOOD GAS TOTAL HGB 9.6 G/DL (12.0-16.0); TEMP CORR TO 98.6
[2016-07-20 05:35] LABS: CRITICAL VALUE YES; OXYGEN DEVICE BiPAP
[2016-07-20 05:36] LABS: DRAW SITE LT RADIAL; FIO2 40 %; NUMBER OF ARTERIAL PUNCTURES 1; STAT NO; ULNAR PULSE PRESENT; VENT SETTINGS IPAP12/EPAP6
--- NOTE | 2016-07-20 06:31 | RADRPT ---
EXAM DATE/TIME: 07/20/2016 05:57 [facility] COMPARISON: CHEST SINGLE AP, July 18, 2016, 4:37. CHEST SINGLE AP, July 19, 2016, 4:35. INDICATIONS : Shortness of breath. MEDICAL HISTORY : None. SURGICAL HISTORY : None. ENCOUNTER: Initial ACUITY: 1 day PAIN SCORE: 0/10 LOCATION: Bilateral chest FINDINGS: A single view of the chest demonstrates persistent infiltrate in the left lung base and right upper l obe. Slightly better aeration in the right upper lobe. Numerous sternal wires. The cardiac silhouette remains enlarged.. Osseous structures are intact. CONCLUSION: Better aeration the right upper lobe. Persistent consolidation left lung base. Cardiomegaly persists. Jak Zamarripa MD on July 20, 2016 at 6:29 Board Certified Radiologist. This report was verified electronically.
[2016-07-20] MEDS: LEVOTHYROXINE SODIUM 125 MCG TAB PO SCH (06:34)
[2016-07-20] MEDS: INSULIN ASPART SUPPLEMENTAL SCALE SQ SCH ×4 (06:34→21:00)
--- NOTE | 2016-07-20 07:08 | HHI.CCPN ---
Subjective Remarks/Hospital Course 66 yo Female with PMH of DM, hypertension, severe mitral stenosis/ aortic stenosis (gradient 33.6, valve area 0.84) secondary to rheumatic valvular disease, hypothyroidism, pulmonary HTN (RVSP 61 mm Hg). She has been experiencing dyspnea for several months and was referred by [facility] (Dr. Barber) for surgical evaluation. She has undergone bioprosthetic MVR/AVR by Dr. Shearer. Anesthesia records reviewed. She had a routine airway per documentation. She received 2500 crystalloid, 2200 Cell Saver in OR. Estimated blood loss was 250. Urine output 3 L. Postoperative JERONIMO demonstrated ejection fraction of 60%. She was undergoing postoperative vent weaning and had respiratory acidemia during C Pap trial a pH of 7.21/PaCO2 of 65/PA O2 of 64. She also had significant tongue swelling and absence of adequate endotracheal tube cuff leak. She was started on Decadron and critical care management medicine was consulted for assistance with ventilator management. Urine output has been 90 mL per hour for the last 3 hours. Hemoglobin 12.3. She is a lifetime nonsmoker. Obese. Remains on 1mcg/min of neosynephrine. Wake up and follows commands. O2 sat 90% on 50 % FiO2. CXR bibasilar infiltrates. IV lasix 20 mg x1 given. Tongue swelling improved per RN July 18, 2016 critical care medicine was reconsulted due to decreased alertness and hypercapnia Subjective 07/19: Still retaining CO2. Did not tolerate BiPAP overnight. Only resting in chair eating pomegranate arils at bedside. No tongue swelling/airway appears patent. No edema. Objective Vital Signs Date Time Temp Pulse Resp B/P Pulse Ox O2 Delivery O2 Flow Rate FiO2 07/20/16 06:00 98 07/20/16 04:00 96.9 17 106/58 99 07/20/16 03:31 40 07/19/16 20:45 Bi-Pap 07/19/16 20:08 3.00 Intake and Output 07/19/16 07/19/16 07/20/16 08:00 16:00 00:00 Intake Total 478 ml 340 ml 240 ml Output Total 350 ml 450 ml 0 ml Balance 128 ml -110 ml 240 ml Result Diagram: 07/20/16 0353 07/20/16 0353 Other Results Laboratory Tests Test 07/20/16 05:22 Blood Gas Puncture Site LT RADIAL Blood Gas Patient Temperature 98.6 Blood Gas HCO3 34 mmol/L (22-26) Blood Gas Base Excess 8.7 mmol/L (-2-2) Blood Gas Oxygen Saturation 95 % (90-100) Arterial Blood pH 7.37 (7.380-7.420) Arterial Blood Partial 61 mmHg (38-42) Pressure CO2 Arterial Blood Partial 98 mmHg Pressure O2 (61-120) Arterial Blood Oxygen Content 13.0 Vol % (12.0-20.0) Arterial Blood 1.1 % (0-4) Carboxyhemoglobin Arterial Blood Methemoglobin 0.9 % (0-2) Blood Gas Hemoglobin 9.6 G/DL (12.0-16.0) Oxygen Delivery Device BiPAP Blood Gas Ventilator Setting [id number]/[id number] Blood Gas Inspired Oxygen 40 % Imaging Last Impressions Chest X-Ray 07/19/16 0600 Signed Impressions: Service Date/Time: Tuesday, July 19, 2016 04:35 - CONCLUSION: Areas of consolidation in the left lung base and right upper lobe slightly more pronounced specifically in the right upper lobe since the previous study. Jak Zamarripa MD Objective Remarks GENERAL: 76-year-old female, currently resting in chair in no acute distress on 3 L nasal cannula SKIN: Warm and dry, no rash. HEAD: Atraumatic. Normocephalic. EYES: Pupils equal and round, 2-3 mm and reactive bilaterally.. No scleral icterus. ENT: No nasal bleeding or discharge. Mucous membranes pink and moist. NECK: Trachea midline. No JVD. Supple CARDIOVASCULAR: Distant heart sounds. RRR. S1, S2 no S4. Without murmur RESPIRATORY: Few crackles appreciated in bases bilaterally. Distant. GASTROINTESTINAL: Abdomen soft, non-tender, diabetes. Hypoactive bowel sounds are present MUSCULOSKELETAL: Extremities with trace nonpitting bilateral lower extremity NEUROLOGICAL: Awake and alert. Strength equal symmetric bilaterally. Normal sensation. A/P Assessment and Plan NEURO/PSYCH: Toxic metabolic encephalopathy secondary to CO2 retention Still retaining CO2 in a.m. ABG but compensated See respiratory Acetaminophen for feverpain management Ammonia level negative. Will check blood cultures 2 rule out infectious etiology. UA negative RESP: Acute hypercapnic respiratory failure Nasal cannula to maintain saturations greater than equal to 92%. Currently on BiPAP 03/08 at 40%. With saturations on her percent A.m. ABG reveals continued CO2 retention PCO2 of 61 Incentive spirometry every hour while awake A cappella/PEP with EZPap every 4 hours Schedule Duoneb aerosols every 4 hours with every 2 hours when necessary for dyspnea for pulmonary toilet Repeat ABG in a.m. 07/21 Will keep head of bed elevated. Pulmonary consult Dr. Shook appreciated/reviewed Chest x-ray 07/20 revealed improvement right upper lobe infiltrate with persistent left lower lobe infiltrate versus atelectasis/compression. CT chest 07/19 revealed left lower lobe pulmonary infiltrate CV: History of Severe Aortic stenosis/Moderate [place] History of Severe Mitral stenosis/Moderate [place] History of Subaortic stenosis Moderate to severe LVH Status post bioprosthetic MVR/AVR, septal myomectomy 07/13/16 (Dr. Shearer) - pathology reveals calcification aortic/mitral with chronic degeneration History of rheumatic heart disease Hypertension History of Dyslipidemia Preoperative echocardiogram 05/12/16 severe aortic stenosis with mean gradient 33.6, valve area 0.84, moderate to severe LVH, EF 60-65%, diastolic dysfunction , moderate to severe left atrial dilation, normal RV function, RESP 61 mmHg, moderate mitral stenosis Echocardiogram 07/18 revealed EF 60-65%. AV by per sec with increasing pressure 31 mmHg. Moderate stenosis valve area 0.82 cm. Mitral with possible LVOT. Moderate left atrial dilatation. SABRINA 39 mmHg Cardiac catheterization 06/29/16normal coronaries. Patient is currently on amiodarone drip. Transition to 400 mg by mouth twice a day. On 200 mg by mouth twice a day at home. Continue metoprolol 25 mg by mouth twice a day/home medication Aspirin 81 daily /home medication continued 1 dose of Diamox 250 mg IV 1 now. On Lasix 40 mg by mouth daily at home. Currently Lasix 40 mg IV daily GI: Obesity Nothing by mouth while on BiPAP. ADA diet when off BiPAP during daytime Protonix for GI prophylaxis 40 mg IV daily Colace twice a day/MiraLAX twice a day/Senokot twice a day/milk of magnesia daily for bowel regimen. Last bowel movement 15 Lactulose daily with questions posterior 1 now RENAL: Quintanilla in place. Monitor intake and output. Follow BMP in a.m. 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 Pertinent cultures 07/19 - blood cultures 2 pending. UA negative 07/13 - valve cultures negative Gram stain/AFB/fungal Started on Zosyn day #2/1 dose of vancomycin 07/19. Infectious disease consulted by primary team HEME: Normocytic anemia Leukocytosis Chronic Coumadin use Monitor CBC. Currently on warfarin 5 mill grams by mouth daily/home dose. Follow-up INR daily. Currently 1.8 Lovenox 40 subcutaneous twice a day ENDO: Diabetes mellitus Hypothyroidism Patient is on metformin 1000 mg by mouth twice a day/home medication. Currently 5 mg by mouth twice a day Sliding-scale insulin with Accu-Cheks before meals/at bedtime to maintain euglycemia. 8 Units sliding scale insulin past 24 hours Continue Synthroid 125 mcg daily FEN: Replace electrolytes as clinically indicated Currently potassium 20 mEq by mouth daily while on Lasix MSK: Osteoporosis/osteoarthritis PT evaluate and treat Holding vitamin D3 50,000 units weekly/home medication PROPH: Protonix 40 mg daily for stress ulcer prophylaxis. Teds/Coumadin with Lovenox 40 mg subcutaneous twice a day for DVT prophylaxis. Critical Care: The total critical care time was 35 minutes. Time to perform other separately billable procedures was not included in the critical care time. Aaron Van MD Jul 20, 2016 07:08 billable procedures was not included in the critical care time. Aaron Van MD Jul 20, 2016 07:08
[2016-07-20] MEDS ORDERED: GLYCERIN ADULT 2 GM SUPP RECTAL PRN (07:45)
[2016-07-20] MEDS: GLYCERIN ADULT 2 GM SUPP RECTAL ONE ×2 (07:45→11:04)
[2016-07-20] MEDS: MAGNESIUM HYDROXIDE SUSP 30 ML CUP PO SCH (08:38)
[2016-07-20] MEDS: metFORMIN HCL 500 MG TAB PO SCH ×2 (08:39→16:50)
[2016-07-20] MEDS: POTASSIUM CHLORIDE 20 MEQ CONTROLLED RELEASE TAB PO SCH (08:39)
[2016-07-20] MEDS: ASPIRIN 81 MG CHEW TAB PO SCH (08:39)
[2016-07-20] MEDS: DOCUSATE SODIUM 100 MG CAP PO SCH ×2 (08:39→20:19)
[2016-07-20] MEDS: METOPROLOL TARTRATE 25 MG TAB PO SCH ×2 (08:39→20:16)
[2016-07-20] MEDS: AMIODARONE 200 MG TAB PO SCH ×2 (08:39→20:15)
[2016-07-20] MEDS: MULTIVITAMINS/MINERALS THERAPEUTIC TAB PO SCH (08:39)
[2016-07-20] MEDS: FUROSEMIDE 40 MG/4 ML VIAL IV PUSH SCH (08:40)
[2016-07-20] MEDS ORDERED: POTASSIUM CHLORIDE 10 MEQ CONTROLLED RELEASE TAB PO ONE (09:00)
[2016-07-20] MEDS ORDERED: LACTULOSE SYRUP 20 GM/30 ML CUP PO SCH (09:00)
[2016-07-20] MEDS: ENOXAPARIN SODIUM 40 MG/0.4 ML SYRINGE SQ SCH (10:33)
[2016-07-20] MEDS: SENNOSIDES 8.6 MG TAB PO SCH ×2 (10:33→20:19)
[2016-07-20] MEDS: POLYETHYLENE GLYCOL 17 GM PKG PO SCH ×2 (10:33→20:19)
--- NOTE | 2016-07-20 14:54 | PD.CAR.PN ---
CVT Progress Note CVT: POD #: 7 Subjective/Hospital Course: 66/ female hx worsening dyspnea x 2 months , underwent ECHO showing severe , moderate Mitral stenosis EF 60% , cardiac cath revealed no evidence of coronary artery disease PMH: HLP, HTN, hypothyroidism, DM surgery: . 07/13 Aortic Valve Replacement with a 21mm Mosaic Cinch II Tissue valve. Mitral Valve Replacement with a 25 mm Mosaic Cinch Tissue Valve. Septal Myomectomy had some immediate postop tongue swelling, minimal cuff leak last pm, was followed by CCM given decadron q6hr, improved 07/14 extubated around 7am to NRB, very anxious , speaking alot of [place] and bible verses , anxiety improved when family arrived this am weaned off insulin gtt, get pt OOB, keep in CVICU until this afternoon, or weaned of high 02 requirement aggressive pulm toielting , CXR noted , left lower lobe consolidation 07/15 pt sleepy , needs aggressive pulm toielting add scheduled diuresis , dc narcotics, use ultram for pain family at bedside continue PT / OOB leave chest tubes in / drained 200cc/ 12 hrs pt will need to be started on coumadin for 4 weeks / AVR/MVR tissue valve / when chest tubes out start metformin 07/16/16 Sleepy today, not ambulating well 07/17/16 Lethargic, dyspneic 07/18 pt went into afib with RVR / amiodarone bolus and gtt started additional mag pt has poor cough effort, needs aggressive pulm toileting no leukocytosis or fever, contineu diuresis eval for rehab at discharge start coumadin this pm 1600 pt still very lethargic, unable to stand without full assistance further labs pending, ECHO report pending will transfer pt to ICU for closer observation remains in Afib rate improved / on amiodarone gtt 07/19 pt remains in afib rate controlled will change to po amiodarone appreciate CCM, and pulm will need outpt eval for sleep study continue bipap prn and at night concern for developing right upper lobe infiltrate ABX per ID 07/20 up in chair, more alert bicarb on ABG and serum improved + BM. prevena dressing removed continue Bipap at night and prn will need rehab placement at discharge Objective: GENERAL: SKIN: Warm and dry.incision intact mid sternum / well approximated HEAD: Normocephalic. EYES: No scleral icterus. No injection or drainage. NECK: Supple, trachea midline. No JVD or lymphadenopathy. CARDIOVASCULAR: Regular rate and rhythm without murmurs, gallops, or rubs. RESPIRATORY: diminished in bases right > left Breath sounds equal bilaterally. No accessory muscle use. GASTROINTESTINAL: Abdomen soft, non-tender, nondistended. MUSCULOSKELETAL: No cyanosis, or edema. BACK: Nontender without obvious deformity. No CVA tenderness. Vital Signs Date Time Temp Pulse Resp B/P Pulse Ox O2 Delivery O2 Flow Rate FiO2 07/20/16 12:06 98.3 99 14 112/65 100 07/20/16 12:06 99 07/20/16 10:00 110 07/20/16 09:06 96 Nasal Cannula 3.00 07/20/16 09:00 100 Nasal Cannula 3.00 07/20/16 08:00 98.2 101 20 131/69 100 07/20/16 08:00 114 07/20/16 07:00 100 Bi-Pap 3.00 40 07/20/16 06:00 98 07/20/16 04:00 96.9 90 17 106/58 99 07/20/16 04:00 90 07/20/16 03:31 99 40 07/20/16 02:00 84 07/20/16 01:24 100 40 07/20/16 00:00 82 07/20/16 00:00 98.3 82 19 107/55 98 07/19/16 22:00 114 07/19/16 20:45 99 Bi-Pap 07/19/16 20:26 98 40 07/19/16 20:08 97 Nasal Cannula 3.00 07/19/16 20:00 116 07/19/16 20:00 98.7 110 22 137/59 98 07/19/16 19:00 100 Nasal Cannula 3.00 07/19/16 18:00 95 07/19/16 17:38 100 07/19/16 17:37 100 BiPAP 40 07/19/16 16:00 100 07/19/16 16:00 97.6 93 21 113/58 100 07/19/16 15:00 97 Nasal Cannula 3.00 Labs: Laboratory Tests Test 07/20/16 07/20/16 03:53 05:22 White Blood Count 11.9 TH/MM3 (4.0-11.0) Red Blood Count 2.96 MIL/MM3 (4.00-5.30) Hemoglobin 9.1 GM/DL (11.6-15.3) Hematocrit 28.5 % (35.0-46.0) Mean Corpuscular Volume 96.3 FL (80.0-100.0) Mean Corpuscular Hemoglobin 30.9 PG (27.0-34.0) Mean Corpuscular Hemoglobin 32.0 % Concent (32.0-36.0) Red Cell Distribution Width 12.2 % (11.6-17.2) Platelet Count 255 TH/MM3 (150-450) Mean Platelet Volume 9.6 FL (7.0-11.0) Neutrophils (%) (Auto) 68.4 % (16.0-70.0) Lymphocytes (%) (Auto) 14.8 % (9.0-44.0) Monocytes (%) (Auto) 10.1 % (0.0-8.0) Eosinophils (%) (Auto) 6.2 % (0.0-4.0) Basophils (%) (Auto) 0.5 % (0.0-2.0) Neutrophils # (Auto) 8.1 TH/MM3 (1.8-7.7) Lymphocytes # (Auto) 1.8 TH/MM3 (1.0-4.8) Monocytes # (Auto) 1.2 TH/MM3 (0-0.9) Eosinophils # (Auto) 0.7 TH/MM3 (0-0.4) Basophils # (Auto) 0.1 TH/MM3 (0-0.2) CBC Comment DIFF FINAL Differential Comment Prothrombin Time 21.0 SEC (9.8-11.6) Prothromb Time International 1.8 RATIO Ratio Sodium Level 139 MEQ/L (136-145) Potassium Level 3.7 MEQ/L (3.5-5.1) Chloride Level 96 MEQ/L (98-107) Carbon Dioxide Level 36.1 MEQ/L (21.0-32.0) Anion Gap 7 MEQ/L (5-15) Blood Urea Nitrogen 15 MG/DL (7-18) Creatinine 0.60 MG/DL (0.50-1.00) Estimat Glomerular Filtration 100 ML/MIN Rate (>89) Random Glucose 104 MG/DL (74-106) Calcium Level 8.5 MG/DL (8.5-10.1) Phosphorus Level 3.0 MG/DL (2.5-4.9) Magnesium Level 2.2 MG/DL (1.5-2.5) Total Bilirubin 0.4 MG/DL (0.2-1.0) Aspartate Amino Transf 15 U/L (15-37) (AST/SGOT) Alanine Aminotransferase 17 U/L (10-53) (ALT/SGPT) Alkaline Phosphatase 91 U/L (45-117) Total Protein 6.2 GM/DL (6.4-8.2) Albumin 2.3 GM/DL (3.4-5.0) Blood Gas Puncture Site LT RADIAL Blood Gas Patient Temperature 98.6 Blood Gas HCO3 34 mmol/L (22-26) Blood Gas Base Excess 8.7 mmol/L (-2-2) Blood Gas Oxygen Saturation 95 % (90-100) Arterial Blood pH 7.37 (7.380-7.420) Arterial Blood Partial 61 mmHg (38-42) Pressure CO2 Arterial Blood Partial 98 mmHg Pressure O2 (61-120) Arterial Blood Oxygen Content 13.0 Vol % (12.0-20.0) Arterial Blood 1.1 % (0-4) Carboxyhemoglobin Arterial Blood Methemoglobin 0.9 % (0-2) Blood Gas Hemoglobin 9.6 G/DL (12.0-16.0) Oxygen Delivery Device BiPAP Blood Gas Ventilator Setting [id number] Blood Gas Inspired Oxygen 40 % Result Diagram: 07/20/16 0353 07/20/16 0353 (1) S/P MVR (mitral valve replacement) (2) S/P AVR (aortic valve replacement) Plan: ASA, amiodarone, BB scheduled diuresis wean 02, pulm toileting OOB/ PT wean 02 coumadin / may be able to stop lovenox in am will transfer back to [facility] (3) Hypertension Plan: controlled (4) Hypothyroidism Plan: home meds (5) Hyperlipemia Plan: on statin (6) Diabetes mellitus Plan: insulin sliding scale / 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
[2016-07-20] MEDS: WARFARIN SOD 5 MG TAB PO SCH (16:50)
[2016-07-20] MEDS: RESP: ALBUTEROL 2.5 MG/IPRATROPIUM 0.5 MG NEB (PRN) NEB (17:43)
[2016-07-20] MEDS ORDERED: AMIODARONE 150 MG/D5W 97 ML BOLUS 10 MINUTES IV ONE ×2 (18:00)
--- NOTE | 2016-07-20 19:24 | HHI.PR ---
Subjective Remarks alert less SOB CXRAY DECREASE RUL PNA Objective GENERAL: SKIN: Warm and dry. HEAD: Atraumatic. Normocephalic. EYES: Pupils equal and round. No scleral icterus. No injection or drainage. ENT: No nasal bleeding or discharge. Mucous membranes pink and moist. NECK: Trachea midline. No JVD. CARDIOVASCULAR: Regular rate and rhythm. RESPIRATORY: No accessory muscle use. Clear to auscultation. Breath sounds equal bilaterally. GASTROINTESTINAL: Abdomen soft, non-tender, nondistended. Hepatic and splenic margins not palpable. MUSCULOSKELETAL: Extremities without clubbing, cyanosis, or edema. No obvious deformities. NEUROLOGICAL: Awake and alert. No obvious cranial nerve deficits. Motor grossly within normal limits. Five out of 5 muscle strength in the arms and legs. Normal speech. PSYCHIATRIC: Appropriate mood and affect; insight and judgment normal. Vital Signs Date Time Temp Pulse Resp B/P Pulse Ox O2 Delivery O2 Flow Rate FiO2 07/20/16 18:31 122 07/20/16 18:21 130 24 125/62 100 07/20/16 17:21 98.9 135 20 155/77 98 07/20/16 16:00 96.2 112 20 138/71 100 07/20/16 16:00 112 07/20/16 14:00 96 07/20/16 12:06 98.3 99 14 112/65 100 07/20/16 12:06 99 07/20/16 10:00 110 07/20/16 09:06 96 Nasal Cannula 3.00 07/20/16 09:00 100 Nasal Cannula 3.00 07/20/16 08:00 98.2 101 20 131/69 100 07/20/16 08:00 114 07/20/16 07:00 100 Bi-Pap 3.00 40 07/20/16 06:00 98 07/20/16 04:00 96.9 90 17 106/58 99 07/20/16 04:00 90 07/20/16 03:31 99 40 07/20/16 02:00 84 07/20/16 01:24 100 40 07/20/16 00:00 82 07/20/16 00:00 98.3 82 19 107/55 98 07/19/16 22:00 114 07/19/16 20:45 99 Bi-Pap 07/19/16 20:26 98 40 07/19/16 20:08 97 Nasal Cannula 3.00 07/19/16 20:00 116 07/19/16 20:00 98.7 110 22 137/59 98 I/O 07/19/16 07/19/16 07/19/16 07/20/16 07/20/16 07/20/16 07:00 15:00 23:00 07:00 15:00 23:00 Intake Total 478 ml 340 ml 240 ml 303 ml 719 ml Output Total 350 ml 450 ml 0 ml 400 ml 675 ml Balance 128 ml -110 ml 240 ml -97 ml 44 ml Intake Oral 240 ml 240 ml 60 ml 600 ml IV Total 238 ml 340 ml 243 ml 119 ml Output Urine Total 350 ml 450 ml 0 ml 400 ml 675 ml # Voids 1 3 2 # Bowel Movements 0 0 0 0 3 Result Diagram: 07/20/16 0353 07/20/16 0353 Assessment and Plan Assessment and Plan ASS: S/P AVR, MVR PNA RESPIRATY FAILURE DM AFIB PLAN O2 ANTIBX PULM TOILET Boone Shook MD Jul 20, 2016 19:24
[2016-07-20] MEDS: PANTOPRAZOLE SODIUM 40 MG VIAL IV PUSH SCH (21:13)
[2016-07-20] MEDS ORDERED: METOPROLOL TARTRATE 25 MG TAB PO ONE (21:45)
[2016-07-21] VITALS (33 sets, daily range): BP systolic 111–164; BP diastolic 66–85; PULSE 83–126; RESP 17–25; TEMP 97.4–98.8; O2SAT 91–100
[2016-07-21] MEDS: ENOXAPARIN SODIUM 40 MG/0.4 ML SYRINGE SQ SCH (00:26)
[2016-07-21] MEDS: PIPERACIL-TAZO 4.5 GM PREMIX 100 ML IV SCH ×3 (02:00→17:22)
[2016-07-21] MEDS: RESP: ALBUTEROL 2.5 MG/IPRATROPIUM 0.5 MG NEB (SCH) NEB ×7 (02:54→23:47)
--- NOTE | 2016-07-21 05:15 | RADRPT ---
EXAM DATE/TIME: 07/21/2016 03:58 [place] COMPARISON: CHEST SINGLE AP, July 20, 2016, 5:57. INDICATIONS : Shortness of breath, possible pulmonary disease. MEDICAL HISTORY : Hypertension. Diabetes mellitus type I. SURGICAL HISTORY : None. ENCOUNTER: Subsequent ACUITY: 2 weeks PAIN SCORE: 3/10 LOCATION: Bilateral chest FINDINGS: A single view of the chest demonstrates the heart is enlarged. There numerous intact sternal wires. B ilateral varus consolidation left greater than right. No visible pneumothorax.. Osseous structures a re intact. CONCLUSION: Cardiomegaly persists. Some consolidation left lung base slightly increased. Jak Zamarripa MD on July 21, 2016 at 5:13 Board Certified Radiologist. This report was verified electronically.
[2016-07-21] MEDS: INSULIN ASPART SUPPLEMENTAL SCALE SQ SCH ×4 (06:03→20:58)
[2016-07-21] MEDS: LEVOTHYROXINE SODIUM 125 MCG TAB PO SCH (06:08)
[2016-07-21 06:53] LABS: INTERNATIONAL NORMALIZED RATIO 3.4 RATIO
[2016-07-21 07:11] LABS: AUTOMATED NEUTROPHIL # 9.3 TH/MM3 (1.8-7.7); BASOPHIL # 0.1 TH/MM3 (0-0.2); BASOPHIL % 0.4 % (0.0-2.0); EOSINOPHIL # 0.4 TH/MM3 (0-0.4); EOSINOPHIL % 3.4 % (0.0-4.0); HEMATOCRIT 29.5 % (35.0-46.0); HEMO FLAGS DIFF FINAL; LYMPH % 10.9 % (9.0-44.0); LYMPHOCYTE # 1.3 TH/MM3 (1.0-4.8); MEAN CELL VOLUME 95.8 FL (80.0-100.0); MEAN CORPUSCULAR HEMOGLOBIN 31.3 PG (27.0-34.0); MEAN CORPUSCULAR HGB CONC 32.7 % (32.0-36.0); MONO % 9.1 % (0.0-8.0); NEUT % 76.2 % (16.0-70.0); PLATELET COUNT 309 TH/MM3 (150-450); RED BLOOD COUNT 3.08 MIL/MM3 (4.00-5.30); RED CELL DISTRIBUTION WIDTH 12.6 % (11.6-17.2); WHITE BLOOD COUNT 12.2 TH/MM3 (4.0-11.0)
[2016-07-21 07:18] LABS: ALKALINE PHOSPHATASE 106 U/L (45-117); ALT (GPT) 19 U/L (10-53); ANION GAP 7 MEQ/L (5-15); AST (GOT) 20 U/L (15-37); BICARBONATE 32.9 MEQ/L (21.0-32.0); BLOOD UREA NITROGEN 14 MG/DL (7-18); CHLORIDE 97 MEQ/L (98-107); GLOMERULAR FILTRATION RATE 85 ML/MIN (>89); MAGNESIUM 2.2 MG/DL (1.5-2.5); POTASSIUM 4.1 MEQ/L (3.5-5.1); SODIUM (NA) 137 MEQ/L (136-145); TOTAL BILIRUBIN ADULT 0.3 MG/DL (0.2-1.0)
--- NOTE | 2016-07-21 08:33 | HHI.PR ---
Subjective Remarks alert less SOB CXRAY DECREASE RUL PNA Objective Vital Signs Date Time Temp Pulse Resp B/P Pulse Ox O2 Delivery O2 Flow Rate FiO2 07/21/16 08:27 109 07/21/16 07:45 97.9 104 19 140/72 98 07/21/16 07:45 98 Nasal Cannula 07/21/16 07:21 96 Nasal Cannula 3.00 07/21/16 07:00 100 07/21/16 06:03 94 35 07/21/16 06:02 108 07/21/16 05:17 119 07/21/16 04:02 98 07/21/16 03:27 96 Bi-Pap 35 07/21/16 03:20 103 07/21/16 03:20 98.5 103 25 121/76 96 07/21/16 02:00 114 07/21/16 01:25 113 07/21/16 00:49 93 35 07/21/16 00:15 112 07/21/16 00:15 98.8 107 22 137/66 100 07/20/16 22:00 116 07/20/16 21:00 126 07/20/16 20:33 100 Nasal Cannula 3.00 07/20/16 20:00 130 07/20/16 19:45 97.9 127 24 136/69 97 07/20/16 19:45 97 Nasal Cannula 3.00 07/20/16 19:00 110 07/20/16 18:31 122 07/20/16 18:21 130 24 125/62 100 07/20/16 17:21 98.9 135 20 155/77 98 07/20/16 16:00 96.2 112 20 138/71 100 07/20/16 16:00 112 07/20/16 14:00 96 07/20/16 12:06 98.3 99 14 112/65 100 07/20/16 12:06 99 07/20/16 11:00 100 Nasal Cannula 3.00 07/20/16 10:00 110 07/20/16 09:06 96 Nasal Cannula 3.00 07/20/16 09:00 100 Nasal Cannula 3.00 I/O 07/20/16 07/20/16 07/20/16 07/21/16 07/21/16 07/21/16 07:00 15:00 23:00 07:00 15:00 23:00 Intake Total 303 ml 719 ml 340 ml Output Total 400 ml 675 ml Balance -97 ml 44 ml 340 ml Intake Oral 60 ml 600 ml 240 ml IV Total 243 ml 119 ml 100 ml Output Urine Total 400 ml 675 ml # Voids 3 2 3 # Bowel Movements 0 3 3 Result Diagram: 07/21/1662907/21/16629 Assessment and Plan Assessment and Plan ASS: S/P AVR, MVR PNA RESPIRATY FAILURE DM AFIB PLAN O2 ANTIBX PULM TOILET Discussed Condition With GENERAL: SKIN: Warm and dry. HEAD: Atraumatic. Normocephalic. EYES: Pupils equal and round. No scleral icterus. No injection or drainage. ENT: No nasal bleeding or discharge. Mucous membranes pink and moist. NECK: Trachea midline. No JVD. CARDIOVASCULAR: Regular rate and rhythm. RESPIRATORY: No accessory muscle use. Clear to auscultation. Breath sounds equal bilaterally. GASTROINTESTINAL: Abdomen soft, non-tender, nondistended. Hepatic and splenic margins not palpable. MUSCULOSKELETAL: Extremities without clubbing, cyanosis, or edema. No obvious deformities. NEUROLOGICAL: Awake and alert. No obvious cranial nerve deficits. Motor grossly within normal limits. Five out of 5 muscle strength in the arms and legs. Normal speech. PSYCHIATRIC: Appropriate mood and affect; insight and judgment normal. Boone Shook MD Jul 21, 2016 08:32
[2016-07-21] MEDS ORDERED: DO NOT ADM ANY ANTICOAGULANT DRUGS OTHER PRN (08:45)
[2016-07-21] MEDS: POLYETHYLENE GLYCOL 17 GM PKG PO SCH ×2 (09:00→20:58)
[2016-07-21] MEDS: SENNOSIDES 8.6 MG TAB PO SCH ×2 (09:00→20:35)
[2016-07-21] MEDS ORDERED: POTASSIUM CHLORIDE 20 MEQ CONTROLLED RELEASE TAB PO SCH (09:00)
[2016-07-21] MEDS: DOCUSATE SODIUM 100 MG CAP PO SCH ×2 (09:00→20:57)
[2016-07-21] MEDS: FUROSEMIDE 40 MG/4 ML VIAL IV PUSH SCH (09:04)
[2016-07-21] MEDS: ASPIRIN 81 MG CHEW TAB PO SCH (09:04)
[2016-07-21] MEDS: AMIODARONE 200 MG TAB PO SCH ×2 (09:05→20:57)
[2016-07-21] MEDS: METOPROLOL TARTRATE 50 MG TAB PO SCH ×2 (09:06→20:58)
[2016-07-21] MEDS: MULTIVITAMINS/MINERALS THERAPEUTIC TAB PO SCH (09:06)
[2016-07-21] MEDS: POTASSIUM CHLORIDE 20 MEQ CONTROLLED RELEASE TAB PO SCH (09:06)
[2016-07-21] MEDS: metFORMIN HCL 500 MG TAB PO SCH ×2 (09:06→17:23)
[2016-07-21] MEDS: ACETAMINOPHEN 325 MG TAB PO PRN (09:48)
[2016-07-21] MEDS: BUDESONIDE-FORMOTEROL 160/4.5 MCG INHALER INH SCH ×2 (12:08→20:57)
[2016-07-21] MEDS: methylPREDNISolone SOD SUCC 125 MG/2 ML VIAL IV PUSH SCH ×2 (12:15→17:22)
--- NOTE | 2016-07-21 14:28 | PD.CAR.PN ---
CVT Progress Note Subjective/Hospital Course: 66/ female hx worsening dyspnea x 2 months , underwent ECHO showing severe , moderate Mitral stenosis EF 60% , cardiac cath revealed no evidence of coronary artery disease PMH: HLP, HTN, hypothyroidism, DM surgery: . 07/13 Aortic Valve Replacement with a 21mm Mosaic Cinch II Tissue valve. Mitral Valve Replacement with a 25 mm Mosaic Cinch Tissue Valve. Septal Myomectomy had some immediate postop tongue swelling, minimal cuff leak last pm, was followed by CCM given decadron q6hr, improved 07/14 extubated around 7am to NRB, very anxious , speaking alot of [place] and bible verses , anxiety improved when family arrived this am weaned off insulin gtt, get pt OOB, keep in CVICU until this afternoon, or weaned of high 02 requirement aggressive pulm toielting , CXR noted , left lower lobe consolidation 07/15 pt sleepy , needs aggressive pulm toielting add scheduled diuresis , dc narcotics, use ultram for pain family at bedside continue PT / OOB leave chest tubes in / drained 200cc/ 12 hrs pt will need to be started on coumadin for 4 weeks / AVR/MVR tissue valve / when chest tubes out start metformin 07/16/16 Sleepy today, not ambulating well 07/17/16 Lethargic, dyspneic 07/18 pt went into afib with RVR / amiodarone bolus and gtt started additional mag pt has poor cough effort, needs aggressive pulm toileting no leukocytosis or fever, contineu diuresis eval for rehab at discharge start coumadin this pm 1600 pt still very lethargic, unable to stand without full assistance further labs pending, ECHO report pending will transfer pt to ICU for closer observation remains in Afib rate improved / on amiodarone gtt 07/19 pt remains in afib rate controlled will change to po amiodarone appreciate CCM, and pulm will need outpt eval for sleep study continue bipap prn and at night concern for developing right upper lobe infiltrate ABX per ID 07/20 up in chair, more alert bicarb on ABG and serum improved + BM. prevena dressing removed continue Bipap at night and prn will need rehab placement at discharge 07/21 pt became very SOB this am , while in chair insp / exp wheezing . started on symbicort and short course IV steroids CO2 on serum 32 from 38, will hold on diamox, call placed to Dr Laura more lethargic, sleepy today from yesterday , despite Bipap at night and PRN HOB up will stop lasix, bolus with 250cc NS f/u labs in am and cxr Objective: Vital Signs Date Time Temp Pulse Resp B/P Pulse Ox O2 Delivery O2 Flow Rate FiO2 07/21/16 14:13 83 07/21/16 13:37 94 35 07/21/16 13:20 85 07/21/16 12:48 93 07/21/16 12:00 92 07/21/16 11:55 96 35 07/21/16 11:31 95 Nasal Cannula 3.00 07/21/16 11:00 103 07/21/16 11:00 97.4 95 17 164/83 95 07/21/16 10:29 90 07/21/16 09:42 101 07/21/16 08:27 109 07/21/16 07:45 97.9 104 19 140/72 98 07/21/16 07:45 98 Nasal Cannula 07/21/16 07:21 96 Nasal Cannula 3.00 07/21/16 07:00 100 07/21/16 06:03 94 35 07/21/16 06:02 108 07/21/16 05:17 119 07/21/16 04:02 98 07/21/16 03:27 96 Bi-Pap 35 07/21/16 03:20 103 07/21/16 03:20 98.5 103 25 121/76 96 07/21/16 02:00 114 07/21/16 01:25 113 07/21/16 00:49 93 35 07/21/16 00:15 112 07/21/16 00:15 98.8 107 22 137/66 100 07/20/16 22:00 116 07/20/16 21:00 126 07/20/16 20:33 100 Nasal Cannula 3.00 07/20/16 20:00 130 07/20/16 19:45 97.9 127 24 136/69 97 07/20/16 19:45 97 Nasal Cannula 3.00 07/20/16 19:00 110 07/20/16 18:31 122 07/20/16 18:21 130 24 125/62 100 07/20/16 17:21 98.9 135 20 155/77 98 07/20/16 16:00 96.2 112 20 138/71 100 07/20/16 16:00 112 Labs: Laboratory Tests Test 07/21/16 06:30 White Blood Count 12.2 TH/MM3 (4.0-11.0) Red Blood Count 3.08 MIL/MM3 (4.00-5.30) Hemoglobin 9.7 GM/DL (11.6-15.3) Hematocrit 29.5 % (35.0-46.0) Mean Corpuscular Volume 95.8 FL (80.0-100.0) Mean Corpuscular Hemoglobin 31.3 PG (27.0-34.0) Mean Corpuscular Hemoglobin 32.7 % Concent (32.0-36.0) Red Cell Distribution Width 12.6 % (11.6-17.2) Platelet Count 309 TH/MM3 (150-450) Mean Platelet Volume 9.3 FL (7.0-11.0) Neutrophils (%) (Auto) 76.2 % (16.0-70.0) Lymphocytes (%) (Auto) 10.9 % (9.0-44.0) Monocytes (%) (Auto) 9.1 % (0.0-8.0) Eosinophils (%) (Auto) 3.4 % (0.0-4.0) Basophils (%) (Auto) 0.4 % (0.0-2.0) Neutrophils # (Auto) 9.3 TH/MM3 (1.8-7.7) Lymphocytes # (Auto) 1.3 TH/MM3 (1.0-4.8) Monocytes # (Auto) 1.1 TH/MM3 (0-0.9) Eosinophils # (Auto) 0.4 TH/MM3 (0-0.4) Basophils # (Auto) 0.1 TH/MM3 (0-0.2) CBC Comment DIFF FINAL Differential Comment Prothrombin Time 40.0 SEC (9.8-11.6) Prothromb Time International 3.4 RATIO Ratio Sodium Level 137 MEQ/L (136-145) Potassium Level 4.1 MEQ/L (3.5-5.1) Chloride Level 97 MEQ/L (98-107) Carbon Dioxide Level 32.9 MEQ/L (21.0-32.0) Anion Gap 7 MEQ/L (5-15) Blood Urea Nitrogen 14 MG/DL (7-18) Creatinine 0.69 MG/DL (0.50-1.00) Estimat Glomerular Filtration 85 ML/MIN (>89) Rate Random Glucose 129 MG/DL (74-106) Lactic Acid Level 1.0 mmol/L (0.4-2.0) Calcium Level 8.9 MG/DL (8.5-10.1) Phosphorus Level 4.2 MG/DL (2.5-4.9) Magnesium Level 2.2 MG/DL (1.5-2.5) Total Bilirubin 0.3 MG/DL (0.2-1.0) Aspartate Amino Transf 20 U/L (15-37) (AST/SGOT) Alanine Aminotransferase 19 U/L (10-53) (ALT/SGPT) Alkaline Phosphatase 106 U/L (45-117) Total Protein 6.8 GM/DL (6.4-8.2) Albumin 2.6 GM/DL (3.4-5.0) Result Diagram: 07/21/1662907/21/16629 (1) S/P MVR (mitral valve replacement) (2) S/P AVR (aortic valve replacement) Plan: ASA, amiodarone, BB wean 02, pulm toileting OOB/ PT wean 02 coumadin / on hold today , INR 3.4 (3) Hypertension Plan: controlled (4) Hypothyroidism Plan: home meds (5) Hyperlipemia Plan: on statin (6) Diabetes mellitus Plan: insulin sliding scale / 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
[2016-07-21] MEDS ORDERED: SODIUM CHLOR 0.9% 250 ML INJ 250 ML IV ONE (14:30)
[2016-07-21 15:41] LABS: FREE T3 0.64 PG/ML (2.18-3.98); FREE T4 1.23 NG/DL (0.76-1.46)
[2016-07-21] MEDS ORDERED: WARFARIN SOD 5 MG TAB PO SCH (16:00)
[2016-07-21] MEDS: PANTOPRAZOLE SODIUM 40 MG VIAL IV PUSH SCH (21:02)
--- NOTE | 2016-07-21 22:27 | HHI.IDPN ---
Subjective Subjective Remarks delayed entry - pt was seen around 1600 today? co cough afebrile soututm ckx with nl resp francis 6 BMs yday, 1 today Antibiotics pip tazo Allergies: Coded Allergies: No Known Allergies (Unverified , 07/13/16) Objective . Vital Signs Date Time Temp Pulse Resp B/P Pulse Ox O2 Delivery O2 Flow Rate FiO2 07/21/16 22:01 101 07/21/16 21:27 124 07/21/16 20:42 94 Nasal Cannula 3.00 07/21/16 20:09 126 07/21/16 19:30 98.0 115 19 111/74 97 07/21/16 19:30 97 Nasal Cannula 3.00 07/21/16 19:00 107 07/21/16 18:00 98 07/21/16 17:00 108 07/21/16 16:00 Nasal Cannula 3.00 07/21/16 16:00 97.4 90 19 142/79 96 07/21/16 16:00 96 07/21/16 14:13 83 07/21/16 13:37 94 35 07/21/16 13:20 85 07/21/16 12:48 93 07/21/16 12:00 92 07/21/16 11:55 96 35 07/21/16 11:31 95 Nasal Cannula 3.00 07/21/16 11:00 103 07/21/16 11:00 97.4 95 17 164/83 95 07/21/16 10:29 90 07/21/16 09:42 101 07/21/16 08:27 109 07/21/16 07:45 97.9 104 19 140/72 98 07/21/16 07:45 98 Nasal Cannula 07/21/16 07:21 96 Nasal Cannula 3.00 07/21/16 07:00 100 07/21/16 06:03 94 35 07/21/16 06:02 108 07/21/16 05:17 119 07/21/16 04:02 98 07/21/16 03:27 96 Bi-Pap 35 07/21/16 03:20 103 07/21/16 03:20 98.5 103 25 121/76 96 07/21/16 02:00 114 07/21/16 01:25 113 07/21/16 00:49 93 35 07/21/16 00:15 112 07/21/16 00:15 98.8 107 22 137/66 100 07/20/16 07/20/16 07/21/16 15:00 23:00 07:00 Intake Total 719 ml 340 ml Output Total 675 ml Balance 44 ml 340 ml Intake Oral 600 ml 240 ml IV Total 119 ml 100 ml Output Urine Total 675 ml # Voids 2 3 # Bowel Movements 3 3 . Laboratory Tests Test 07/20/16 07/21/16 03:53 06:30 White Blood Count 11.9 TH/MM3 12.2 TH/MM3 Red Blood Count 2.96 MIL/MM3 3.08 MIL/MM3 Hemoglobin 9.1 GM/DL 9.7 GM/DL Hematocrit 28.5 % 29.5 % Mean Corpuscular Volume 96.3 FL 95.8 FL Mean Corpuscular Hemoglobin 30.9 PG 31.3 PG Mean Corpuscular Hemoglobin 32.0 % 32.7 % Concent Red Cell Distribution Width 12.2 % 12.6 % Platelet Count 255 TH/MM3 309 TH/MM3 Mean Platelet Volume 9.6 FL 9.3 FL Neutrophils (%) (Auto) 68.4 % 76.2 % Lymphocytes (%) (Auto) 14.8 % 10.9 % Monocytes (%) (Auto) 10.1 % 9.1 % Eosinophils (%) (Auto) 6.2 % 3.4 % Basophils (%) (Auto) 0.5 % 0.4 % Neutrophils # (Auto) 8.1 TH/MM3 9.3 TH/MM3 Lymphocytes # (Auto) 1.8 TH/MM3 1.3 TH/MM3 Monocytes # (Auto) 1.2 TH/MM3 1.1 TH/MM3 Eosinophils # (Auto) 0.7 TH/MM3 0.4 TH/MM3 Basophils # (Auto) 0.1 TH/MM3 0.1 TH/MM3 CBC Comment DIFF FINAL DIFF FINAL Differential Comment Laboratory Tests Test 07/20/16 07/21/16 03:53 06:30 Sodium Level 139 MEQ/L 137 MEQ/L Potassium Level 3.7 MEQ/L 4.1 MEQ/L Chloride Level 96 MEQ/L 97 MEQ/L Carbon Dioxide Level 36.1 MEQ/L 32.9 MEQ/L Anion Gap 7 MEQ/L 7 MEQ/L Blood Urea Nitrogen 15 MG/DL 14 MG/DL Creatinine 0.60 MG/DL 0.69 MG/DL Estimat Glomerular Filtration 100 ML/MIN 85 ML/MIN Rate Random Glucose 104 MG/DL 129 MG/DL Calcium Level 8.5 MG/DL 8.9 MG/DL Phosphorus Level 3.0 MG/DL 4.2 MG/DL Magnesium Level 2.2 MG/DL 2.2 MG/DL Total Bilirubin 0.4 MG/DL 0.3 MG/DL Aspartate Amino Transf 15 U/L 20 U/L (AST/SGOT) Alanine Aminotransferase 17 U/L 19 U/L (ALT/SGPT) Alkaline Phosphatase 91 U/L 106 U/L Total Protein 6.2 GM/DL 6.8 GM/DL Albumin 2.3 GM/DL 2.6 GM/DL Lactic Acid Level 1.0 mmol/L Free Thyroxine 1.23 NG/DL Free Triiodothyronine (T3) 0.64 PG/ML pg/dL Thyroid Stimulating Hormone 1.200 uIU/ML 3rd Gen Microbiology Date/Time Procedure Status Source Growth 07/19/16 10:36 Aerobic Blood Culture - Preliminary Resulted Blood Peripheral NO GROWTH IN 2 DAYS 07/19/16 10:36 Anaerobic Blood Culture - Preliminary Resulted Blood Peripheral NO GROWTH IN 2 DAYS 07/19/16 10:44 Aerobic Blood Culture - Preliminary Resulted Blood Peripheral NO GROWTH IN 2 DAYS 07/19/16 10:44 Anaerobic Blood Culture - Preliminary Resulted Blood Peripheral NO GROWTH IN 2 DAYS 07/20/16 09:45 Influenza Types A,B Antigen (ADDISON) - Final Complete Nasal Aspirate NEGATIVE FOR FLU A AND B ANTIGEN.... 07/20/16 09:45 Gram Stain Ordered Sputum Expectorated Sputum Pending 07/20/16 09:45 Sputum Culture Ordered Sputum Expectorated Sputum Pending 07/20/16 17:40 Gram Stain - Final Resulted Sputum Expectorated Sputum 07/20/16 17:40 Sputum Culture - Preliminary Resulted Sputum Expectorated Sputum HEAVY GROWTH NORMAL RESPIRATORY FRANCIS... Imaging Last Impressions Chest X-Ray 07/21/16 0600 Signed Impressions: Service Date/Time: July 03:58 - CONCLUSION: Cardiomegaly persists. Some consolidation left lung base slightly increased. Jak Zamarripa MD Chest CT 07/19/16 0000 Signed Impressions: Service Date/Time: Tuesday, July 19, 2016 11:45 - CONCLUSION: Left lower lobe consolidation. Diminished lung volumes and the upper lungs. Cardiomegaly and significant enlargement of the pulmonary arteries. Yasmany Herring MD Physical Exam CONSTITUTIONAL/GENERAL: This is a morbidly obese elderly female patient, in no apparent distress. OOB in a chair TUBES/LINES/DRAINS: SKIN: No jaundice, rashes, or lesions. Skin temperature appropriate. Not diaphoretic. EYES: Pupils equal and round and reactive. Extraocular motions intact. No scleral icterus. No injection or drainage. Fundi not examined. ENT: Oral mucosae moist, without visible erythema, exudates, masses, or lesions. CARDIOVASCULAR: Regular rate and rhythm without murmurs, gallops, or rubs. No JVD. Peripheral pulses symmetric. Distant heart sounds Dressing in place over medial sternotomy RESPIRATORY/CHEST: Symmetric, unlabored respirations. B/l crackles to auscultation Breath sounds equally diminished bilaterally. GASTROINTESTINAL: Abdomen soft, non-tender, distended. MUSCULOSKELETAL: Extremities without clubbing, cyanosis, + 2-3 edema. No joint tenderness or effusion noted. No calf tenderness. No mottling or clubbing. NEUROLOGICAL: Awake and alert. Motor and sensory grossly within normal limits. Follows commands. Normal speech . Moves all extremities. PSYCHIATRIC: No obvious anxiety/depression. no apparent hallucinations or other psychotic thought process. Assessment & Plan Remarks sp MVR/AVR in a pt with rheumatic valve disease ? PNA - doubt PNA, sputum clx is not purulent Rec's: will dc abx and observe off abx Mary Khan MD Jul 21, 2016 22:27
[2016-07-22] VITALS (29 sets, daily range): BP systolic 130–143; BP diastolic 63–73; PULSE 76–100; RESP 16–18; TEMP 97.8–98.9; O2SAT 93–98
[2016-07-22] MEDS: methylPREDNISolone SOD SUCC 125 MG/2 ML VIAL IV PUSH SCH ×2 (00:06→06:15)
[2016-07-22] MEDS: RESP: ALBUTEROL 2.5 MG/IPRATROPIUM 0.5 MG NEB (SCH) NEB ×5 (03:31→21:58)
[2016-07-22] MEDS: LEVOTHYROXINE SODIUM 125 MCG TAB PO SCH (06:15)
[2016-07-22] MEDS: INSULIN ASPART SUPPLEMENTAL SCALE SQ SCH ×4 (06:15→21:27)
[2016-07-22] MEDS: POLYETHYLENE GLYCOL 17 GM PKG PO SCH ×2 (09:00→21:00)
[2016-07-22] MEDS: SENNOSIDES 8.6 MG TAB PO SCH ×2 (09:00→21:26)
[2016-07-22] MEDS: DOCUSATE SODIUM 100 MG CAP PO SCH ×2 (09:00→21:27)
--- NOTE | 2016-07-22 09:02 | HHI.PR ---
Subjective Remarks alert less SOB CXRAY DECREASE RUL PNA Objective Vital Signs Date Time Temp Pulse Resp B/P Pulse Ox O2 Delivery O2 Flow Rate FiO2 07/22/16 08:50 96 21 07/22/16 08:00 Nasal Cannula 3.00 07/22/16 06:00 85 07/22/16 05:06 82 07/22/16 04:36 87 07/22/16 03:36 96 BiPAP 35 07/22/16 03:36 96 35 07/22/16 03:35 96 Bi-Pap 35 07/22/16 03:35 97.8 92 18 139/71 96 07/22/16 03:00 95 07/22/16 02:02 90 07/22/16 01:00 98 07/22/16 00:21 100 07/21/16 23:49 91 35 07/21/16 23:49 91 BiPAP 35 07/21/16 23:30 99 Bi-Pap 35 07/21/16 23:00 101 07/21/16 23:00 98.1 105 17 140/85 99 07/21/16 22:01 101 07/21/16 21:27 124 07/21/16 20:42 94 Nasal Cannula 3.00 07/21/16 20:09 126 07/21/16 19:30 98.0 115 19 111/74 97 07/21/16 19:30 97 Nasal Cannula 3.00 07/21/16 19:00 107 07/21/16 18:00 98 07/21/16 17:00 108 07/21/16 16:00 Nasal Cannula 3.00 07/21/16 16:00 97.4 90 19 142/79 96 07/21/16 16:00 96 07/21/16 14:13 83 07/21/16 13:37 94 35 07/21/16 13:20 85 07/21/16 12:48 93 07/21/16 12:00 92 07/21/16 11:55 96 35 07/21/16 11:31 95 Nasal Cannula 3.00 07/21/16 11:00 103 07/21/16 11:00 97.4 95 17 164/83 95 07/21/16 10:29 90 07/21/16 09:42 101 I/O 07/21/16 07/21/16 07/21/16 07/22/1607/22/17 4/21/17 07:00 15:00 23:00 07:00 15:00 23:00 Intake Total 340 ml 1140 ml 480 ml Balance 340 ml 1140 ml 480 ml Intake Oral 240 ml 660 ml 480 ml IV Total 100 ml 480 ml # Voids 3 4 2 # Bowel Movements 3 1 0 Result Diagram: 07/21/16 0630 07/21/16 0630 Assessment and Plan Assessment and Plan ASS: S/P AVR, MVR PNA RESPIRATY FAILURE DM AFIB PLAN O2 ANTIBX PULM TOILET Discussed Condition With GENERAL: SKIN: Warm and dry. HEAD: Atraumatic. Normocephalic. EYES: Pupils equal and round. No scleral icterus. No injection or drainage. ENT: No nasal bleeding or discharge. Mucous membranes pink and moist. NECK: Trachea midline. No JVD. CARDIOVASCULAR: Regular rate and rhythm. RESPIRATORY: No accessory muscle use. Clear to auscultation. decrease breath souns left base GASTROINTESTINAL: Abdomen soft, non-tender, nondistended. Hepatic and splenic margins not palpable. MUSCULOSKELETAL: Extremities without clubbing, cyanosis, or edema. No obvious deformities. NEUROLOGICAL: Awake and alert. No obvious cranial nerve deficits. Motor grossly within normal limits. Five out of 5 muscle strength in the arms and legs. Normal speech. PSYCHIATRIC: Appropriate mood and affect; insight and judgment normal. Boone Shook MD Jul 22, 2016 09:02
[2016-07-22] MEDS: METOPROLOL TARTRATE 50 MG TAB PO SCH ×2 (09:04→21:26)
[2016-07-22] MEDS: ASPIRIN 81 MG CHEW TAB PO SCH (09:04)
[2016-07-22] MEDS: MULTIVITAMINS/MINERALS THERAPEUTIC TAB PO SCH (09:04)
[2016-07-22] MEDS: metFORMIN HCL 500 MG TAB PO SCH ×2 (09:04→17:11)
[2016-07-22] MEDS: BUDESONIDE-FORMOTEROL 160/4.5 MCG INHALER INH SCH ×2 (09:05→21:24)
[2016-07-22] MEDS: AMIODARONE 200 MG TAB PO SCH ×2 (09:05→21:26)
--- NOTE | 2016-07-22 11:29 | PD.CAR.PN ---
CVT Progress Note Subjective/Hospital Course: 66/ female hx worsening dyspnea x 2 months , underwent ECHO showing severe , moderate Mitral stenosis EF 60% , cardiac cath revealed no evidence of coronary artery disease PMH: HLP, HTN, hypothyroidism, DM surgery: . 07/13 Aortic Valve Replacement with a 21mm Mosaic Cinch II Tissue valve. Mitral Valve Replacement with a 25 mm Mosaic Cinch Tissue Valve. Septal Myomectomy had some immediate postop tongue swelling, minimal cuff leak last pm, was followed by CCM given decadron q6hr, improved 07/14 extubated around 7am to NRB, very anxious , speaking alot of canadian and bible verses , anxiety improved when family arrived this am weaned off insulin gtt, get pt OOB, keep in CVICU until this afternoon, or weaned of high 02 requirement aggressive pulm toielting , CXR noted , left lower lobe consolidation 07/15 pt sleepy , needs aggressive pulm toielting add scheduled diuresis , dc narcotics, use ultram for pain family at bedside continue PT / OOB leave chest tubes in / drained 200cc/ 12 hrs pt will need to be started on coumadin for 4 weeks / AVR/MVR tissue valve / when chest tubes out start metformin 07/16/16 Sleepy today, not ambulating well 07/17/16 Lethargic, dyspneic 07/18 pt went into afib with RVR / amiodarone bolus and gtt started additional mag pt has poor cough effort, needs aggressive pulm toileting no leukocytosis or fever, contineu diuresis eval for rehab at discharge start coumadin this pm 1600 pt still very lethargic, unable to stand without full assistance further labs pending, ECHO report pending will transfer pt to ICU for closer observation remains in Afib rate improved / on amiodarone gtt 07/19 pt remains in afib rate controlled will change to po amiodarone appreciate CCM, and pulm will need outpt eval for sleep study continue bipap prn and at night concern for developing right upper lobe infiltrate ABX per ID 07/20 up in chair, more alert bicarb on ABG and serum improved + BM. prevena dressing removed continue Bipap at night and prn will need rehab placement at discharge 07/21 pt became very SOB this am , while in chair insp / exp wheezing . started on symbicort and short course IV steroids CO2 on serum 32 from 38, will hold on diamox, call placed to Dr Luara more lethargic, sleepy today from yesterday , despite Bipap at night and PRN HOB up will stop lasix, bolus with 250cc NS f/u labs in am and cxr 07/22 more awake and alert pt seen by Dr Shook ok to dc from his standpoint waiting on rehab/ recommend Bipap at night if possible until sleep study completed as outpt will eval for dc today Objective: GENERAL: SKIN: Warm and dry.incision intact and well approximated to chest HEAD: Normocephalic. EYES: No scleral icterus. No injection or drainage. NECK: Supple, trachea midline. No JVD or lymphadenopathy. CARDIOVASCULAR: Regular rate and rhythm without murmurs, gallops, or rubs. RESPIRATORY: Breath sounds equal bilaterally. No accessory muscle use. GASTROINTESTINAL: Abdomen soft, non-tender, nondistended. MUSCULOSKELETAL: No cyanosis, or edema. BACK: Nontender without obvious deformity. No CVA tenderness. Vital Signs Date Time Temp Pulse Resp B/P Pulse Ox O2 Delivery O2 Flow Rate FiO2 07/22/16 08:50 96 21 07/22/16 08:00 93 07/22/16 08:00 Nasal Cannula 3.00 07/22/16 08:00 98.9 95 16 141/73 93 07/22/16 06:00 85 07/22/16 05:06 82 07/22/16 04:36 87 07/22/16 03:36 96 BiPAP 35 07/22/16 03:36 96 35 07/22/16 03:35 96 Bi-Pap 35 07/22/16 03:35 97.8 92 18 139/71 96 07/22/16 03:00 95 07/22/16 02:02 90 07/22/16 01:00 98 07/22/16 00:21 100 07/21/16 23:49 91 35 07/21/16 23:49 91 BiPAP 35 07/21/16 23:30 99 Bi-Pap 35 07/21/16 23:00 101 07/21/16 23:00 98.1 105 17 140/85 99 07/21/16 22:01 101 07/21/16 21:27 124 07/21/16 20:42 94 Nasal Cannula 3.00 4/20/17 20:09 126 07/21/16 19:30 98.0 115 19 111/74 97 07/21/16 19:30 97 Nasal Cannula 3.00 07/21/16 19:00 107 07/21/16 18:00 98 07/21/16 17:00 108 07/21/16 16:00 Nasal Cannula 3.00 07/21/16 16:00 97.4 90 19 142/79 96 07/21/16 16:00 96 07/21/16 14:13 83 07/21/16 13:37 94 35 07/21/16 13:20 85 07/21/16 12:48 93 07/21/16 12:00 92 07/21/16 11:55 96 35 07/21/16 11:31 95 Nasal Cannula 3.00 Result Diagram: 07/21/16 0630 07/21/16 0630 Telemetry: afib rate controlled (1) S/P MVR (mitral valve replacement) (2) S/P AVR (aortic valve replacement) Plan: ASA, amiodarone, BB wean 02, pulm toileting OOB/ PT wean 02 coumadin / on hold today , INR 3.4/ await INR level (3) Hypertension Plan: controlled (4) Hypothyroidism Plan: home meds / TSH 1.3 (5) Hyperlipemia Plan: on statin (6) Diabetes mellitus Plan: insulin sliding scale / diabetic diet inclusion special educator (7) Afib Plan: amiodarone / coumadin (8) left lower loobe consolidation Plan: pulm toileting nebs ezpap wean 02 as tolerated (9) hypercapneic resp failure Plan: Bipap as tolerated will need sleep study as outpt s/p diamox eval if pt can continue Bipap or at least CPAP at rehab Nicol Booth Jul 22, 2016 11:29
[2016-07-22] MEDS ORDERED: AMIO200T PO (11:34)
[2016-07-22 12:14] LABS: INTERNATIONAL NORMALIZED RATIO 3.6 RATIO; PROTHROMBIN TIME - PATIENT 41.5 SEC (9.8-11.6)
[2016-07-22] MEDS ORDERED: COUM3TAB PO (12:37)
[2016-07-22 12:47] LABS: POTASSIUM 4.4 MEQ/L (3.5-5.1)
--- NOTE | 2016-07-22 13:24 | HHI.DS ---
Discharge Summary Admission Date Jul 13, 2016 at 05:59 Discharge Date: Jul 22, 2016 Admitting Diagnosis aortic stenosis , mitral stenosis (1) S/P AVR (aortic valve replacement) (2) S/P MVR (mitral valve replacement) Diagnosis: Secondary (3) Hyperlipemia Diagnosis: Principal (4) Hypothyroidism Diagnosis: Principal (5) Hypertension Diagnosis: Principal (6) Afib Diagnosis: Principal (7) Obstructive sleep apnea Diagnosis: Principal Procedures 1. Aortic Valve Replacement with a 21mm Mosaic Cinch II Tissue valve. 2. Mitral Valve Replacement with a 25 mm Mosaic Cinch Tissue Valve. 3. Septal Myomectomy 07/13 Brief History 66 yo Female with PMH of DM, hypertension, severe mitral stenosis/ aortic stenosis (gradient 33.6, valve area 0.84) secondary to rheumatic valvular disease, hypothyroidism, pulmonary HTN (RVSP 61 mm Hg). She has been experiencing dyspnea for several months and was referred by Oralia Bond (Dr. Barber) for surgical evaluation. She has undergone bioprosthetic MVR/AVR by Dr. Shearer. Anesthesia records reviewed. She had a routine airway per documentation. She received 2500 crystalloid, 2200 Cell Saver in OR. Estimated blood loss was 250. Urine output 3 L. Postoperative JERONIMO demonstrated ejection fraction of 60%. She was undergoing postoperative vent weaning and had respiratory acidemia during C Pap trial a pH of 7.21/PaCO2 of 65/PA O2 of 64. She also had significant tongue swelling and absence of adequate endotracheal tube cuff leak. She was started on Decadron and critical care management medicine was consulted for assistance with ventilator management. Urine output has been 90 mL per hour for the last 3 hours. Hemoglobin 12.3. She is a lifetime nonsmoker. Obese. Remains on 1mcg/min of neosynephrine. Wake up and follows commands. O2 sat 90% on 50 % FiO2. CXR bibasilar infiltrates. IV lasix 20 mg x1 given. Tongue swelling improved per RN July 18, 2016 critical care medicine was reconsulted due to decreased alertness and hypercapniaSubjective/Hospital Course: 66/ female hx worsening dyspnea x 2 months , underwent ECHO showing severe , moderate Mitral stenosis EF 60% , cardiac cath revealed no evidence of coronary artery disease PMH: HLP, HTN, hypothyroidism, DM CBC/BMP: 07/21/16 0630 07/22/16 1137 Significant Findings Laboratory Tests Test 07/20/16 07/20/16 07/21/16 07/22/16 03:53 05:22 06:30 11:37 White Blood Count 11.9 TH/MM3 12.2 TH/MM3 (4.0-11.0) (4.0-11.0) Red Blood Count 2.96 MIL/MM3 3.08 MIL/MM3 (4.00-5.30) (4.00-5.30) Hemoglobin 9.1 GM/DL 9.7 GM/DL (11.6-15.3) (11.6-15.3) Hematocrit 28.5 % 29.5 % (35.0-46.0) (35.0-46.0) Monocytes (%) (Auto) 10.1 % 9.1 % (0.0-8.0) (0.0-8.0) Eosinophils (%) (Auto) 6.2 % (0.0-4.0) Neutrophils # (Auto) 8.1 TH/MM3 9.3 TH/MM3 (1.8-7.7) (1.8-7.7) Monocytes # (Auto) 1.2 TH/MM3 1.1 TH/MM3 (0-0.9) (0-0.9) Eosinophils # (Auto) 0.7 TH/MM3 (0-0.4) Prothrombin Time 21.0 SEC 40.0 SEC 41.5 SEC (9.8-11.6) (9.8-11.6) (9.8-11.6) Chloride Level 96 MEQ/L 97 MEQ/L (98-107) (98-107) Carbon Dioxide Level 36.1 MEQ/L 32.9 MEQ/L (21.0-32.0) (21.0-32.0) Total Protein 6.2 GM/DL (6.4-8.2) Albumin 2.3 GM/DL 2.6 GM/DL (3.4-5.0) (3.4-5.0) Blood Gas HCO3 34 mmol/L (22-26) Blood Gas Base Excess 8.7 mmol/L (-2-2) Arterial Blood pH 7.37 (7.380-7.420) Arterial Blood Partial 61 mmHg (38-42) Pressure CO2 Blood Gas Hemoglobin 9.6 G/DL (12.0-16.0) Neutrophils (%) (Auto) 76.2 % (16.0-70.0) Estimat Glomerular Filtration 85 ML/MIN (>89) 73 ML/MIN (>89) Rate Random Glucose 129 MG/DL 266 MG/DL (74-106) (74-106) Free Triiodothyronine (T3) 0.64 PG/ML pg/dL (2.18-3.98) Blood Urea Nitrogen 23 MG/DL (7-18) Imaging Last Impressions Chest X-Ray 07/21/16 0600 Signed Impressions: Service Date/Time: July 03:58 - CONCLUSION: Cardiomegaly persists. Some consolidation left lung base slightly increased. Jak Zamarripa MD Chest CT 07/19/16 0000 Signed Impressions: Service Date/Time: Tuesday, July 19, 2016 11:45 - CONCLUSION: Left lower lobe consolidation. Diminished lung volumes and the upper lungs. Cardiomegaly and significant enlargement of the pulmonary arteries. Yasmany Herring MD PE at Discharge GENERAL: alert and oriented SKIN: Warm and dry.sternal incision intact and well approximated HEAD: Normocephalic. EYES: No scleral icterus. No injection or drainage. NECK: Supple, trachea midline. No JVD or lymphadenopathy. CARDIOVASCULAR: Regular rate and rhythm without murmurs, gallops, or rubs. RESPIRATORY: Breath sounds equal bilaterally. No accessory muscle use. GASTROINTESTINAL: Abdomen soft, non-tender, nondistended. MUSCULOSKELETAL: No cyanosis, or edema. BACK: Nontender without obvious deformity. No CVA tenderness. Hospital Course 07/14 extubated around 7am to NRB, very anxious , speaking alot of mongolian and bible verses , anxiety improved when family arrived this am weaned off insulin gtt, get pt OOB, keep in CVICU until this afternoon, or weaned of high 02 requirement aggressive pulm toielting , CXR noted , left lower lobe consolidation 07/15 pt sleepy , needs aggressive pulm toielting add scheduled diuresis , dc narcotics, use ultram for pain family at bedside continue PT / OOB leave chest tubes in / drained 200cc/ 12 hrs pt will need to be started on coumadin for 4 weeks / AVR/MVR tissue valve / when chest tubes out start metformin 07/16/16 Sleepy today, not ambulating well 07/17/16 Lethargic, dyspneic 07/18 pt went into afib with RVR / amiodarone bolus and gtt started additional mag pt has poor cough effort, needs aggressive pulm toileting no leukocytosis or fever, contineu diuresis eval for rehab at discharge start coumadin this pm 1600 pt still very lethargic, unable to stand without full assistance further labs pending, ECHO report pending will transfer pt to ICU for closer observation remains in Afib rate improved / on amiodarone gtt 07/19 pt remains in afib rate controlled will change to po amiodarone appreciate CCM, and pulm will need outpt eval for sleep study continue bipap prn and at night concern for developing right upper lobe infiltrate ABX per ID 07/20 up in chair, more alert bicarb on ABG and serum improved + BM. prevena dressing removed continue Bipap at night and prn will need rehab placement at discharge 07/21 pt became very SOB this am , while in chair insp / exp wheezing . started on symbicort and short course IV steroids CO2 on serum 32 from 38, will hold on diamox, call placed to Dr Laura more lethargic, sleepy today from yesterday , despite Bipap at night and PRN HOB up will stop lasix, bolus with 250cc NS f/u labs in am and cxr 07/22 more awake and alert pt seen by Dr Shook ok to dc from his standpoint waiting on rehab/ recommend Bipap at night if possible IPAP 12/ EPAP to maintain sat >92% until sleep study completed as outpt will eval for dc today Pt Condition on Discharge: Good Discharge Disposition: Rehab Inpatient Discharge Instructions DIET: Follow Instructions for: Heart Healthy Diet, Coumadin (Warfarin) Diet Speech Therapy-Diet Recommenda: Regular Activities you can perform: Shower Only-No Bath Activities to avoid: Lifting/Bending, Driving Additional Activity Instructio: no lifting > 8 lbs or galllon milk Follow up Referrals: Appointment for Follow Up with Dell Shearer MD Cardiology @ [facility] with Bashir Tanner PCP Follow-up with Rocío Parra New Orders: PT/INR - 3-5 Days New Medications: Walker with Front Wheels (Walker with Front Wheels) 1 Mis Mis 1 EA .ROUTE DIRECTED #1 Ref 0 EA Amiodarone (Amiodarone) 200 Mg Tab 400 MG PO Q12HR 400mg bid x 3 days, then 200mg bid x 5 days, then 200mg daily heart rhythm #40 Ref 1 TAB Docusate Sodium (Dok) 100 Mg Cap 100 MG PO BID Constipation #60 Ref 0 CAP Metoprolol Tartrate (Metoprolol Tartrate) 25 Mg Tab 25 MG PO BID Blood Pressure Management #60 Ref 2 TAB Multiple Vitamins W/ Minerals (Thera M Plus) 1 Tab 1 TAB PO DAILY multi vitamin #30 TAB Warfarin (Coumadin) 3 Mg Tab 2.5 MG PO DAILY@1600 start on 07/25/15 INR 2.5-3 hold INR>3.5 afib #30 TAB Continued Medications: Aspirin (Aspirin) 81 Mg Tabdr 81 MG PO DAILY TAB Cholecalciferol (D3 Ultra Strength) 10,000 Unit Cap 92506 UNITS PO WEEKLY Levothyroxine (Levothyroxine) 125 Mcg Tab 125 MCG PO DAILY Thyroid Ref 0 TAB Metformin (Metformin) 1,000 Mg Tab 1000 MG PO BIDPC With meals Blood Sugar Management Ref 0 TAB Nicol Booth Jul 22, 2016 13:24
[2016-07-22] MEDS ORDERED: WARFARIN SOD 3 MG TAB PO SCH ×2 (16:00)
[2016-07-22] MEDS: PANTOPRAZOLE SODIUM 40 MG VIAL IV PUSH SCH (21:27)
[2016-07-23] VITALS (35 sets, daily range): BP systolic 114–151; BP diastolic 56–86; PULSE 78–120; RESP 18–20; TEMP 97.2–98; O2SAT 93–99
[2016-07-23] MEDS: RESP: ALBUTEROL 2.5 MG/IPRATROPIUM 0.5 MG NEB (SCH) NEB ×4 (01:14→11:18)
[2016-07-23] MEDS: INSULIN ASPART SUPPLEMENTAL SCALE SQ SCH ×5 (05:45→21:00)
[2016-07-23] MEDS: LEVOTHYROXINE SODIUM 125 MCG TAB PO SCH (06:00)
[2016-07-23] MEDS: MULTIVITAMINS/MINERALS THERAPEUTIC TAB PO SCH (09:00)
[2016-07-23] MEDS: DOCUSATE SODIUM 100 MG CAP PO SCH ×2 (09:13→21:00)
[2016-07-23] MEDS: POLYETHYLENE GLYCOL 17 GM PKG PO SCH ×2 (09:13→21:00)
[2016-07-23] MEDS: ASPIRIN 81 MG CHEW TAB PO SCH (09:13)
[2016-07-23] MEDS: SENNOSIDES 8.6 MG TAB PO SCH ×2 (09:13→21:00)
[2016-07-23] MEDS: metFORMIN HCL 500 MG TAB PO SCH ×2 (09:13→18:30)
[2016-07-23] MEDS: METOPROLOL TARTRATE 50 MG TAB PO SCH ×2 (09:13→22:08)
[2016-07-23] MEDS: AMIODARONE 200 MG TAB PO SCH ×2 (09:14→22:08)
--- NOTE | 2016-07-23 09:35 | PD.CAR.PN ---
CVT Progress Note Subjective/Hospital Course: 66/ female hx worsening dyspnea x 2 months , underwent ECHO showing severe , moderate Mitral stenosis EF 60% , cardiac cath revealed no evidence of coronary artery disease PMH: HLP, HTN, hypothyroidism, DM surgery: . 07/13 Aortic Valve Replacement with a 21mm Mosaic Cinch II Tissue valve. Mitral Valve Replacement with a 25 mm Mosaic Cinch Tissue Valve. Septal Myomectomy had some immediate postop tongue swelling, minimal cuff leak last pm, was followed by CCM given decadron q6hr, improved 07/14 extubated around 7am to NRB, very anxious , speaking alot of [place] citizen and bible verses , anxiety improved when family arrived this am weaned off insulin gtt, get pt OOB, keep in CVICU until this afternoon, or weaned of high 02 requirement aggressive pulm toielting , CXR noted , left lower lobe consolidation 07/15 pt sleepy , needs aggressive pulm toielting add scheduled diuresis , dc narcotics, use ultram for pain family at bedside continue PT / OOB leave chest tubes in / drained 200cc/ 12 hrs pt will need to be started on coumadin for 4 weeks / AVR/MVR tissue valve / when chest tubes out start metformin 07/16/16 Sleepy today, not ambulating well 07/17/16 Lethargic, dyspneic 07/18 pt went into afib with RVR / amiodarone bolus and gtt started additional mag pt has poor cough effort, needs aggressive pulm toileting no leukocytosis or fever, contineu diuresis eval for rehab at discharge start coumadin this pm 1600 pt still very lethargic, unable to stand without full assistance further labs pending, ECHO report pending will transfer pt to ICU for closer observation remains in Afib rate improved / on amiodarone gtt 07/19 pt remains in afib rate controlled will change to po amiodarone appreciate CCM, and pulm will need outpt eval for sleep study continue bipap prn and at night concern for developing right upper lobe infiltrate ABX per ID 07/20 up in chair, more alert bicarb on ABG and serum improved + BM. prevena dressing removed continue Bipap at night and prn will need rehab placement at discharge 07/21 pt became very SOB this am , while in chair insp / exp wheezing . started on symbicort and short course IV steroids CO2 on serum 32 from 38, will hold on diamox, call placed to Dr Laura more lethargic, sleepy today from yesterday , despite Bipap at night and PRN HOB up will stop lasix, bolus with 250cc NS f/u labs in am and cxr 07/22 more awake and alert pt seen by Dr Shook ok to dc from his standpoint waiting on rehab/ recommend Bipap at night if possible until sleep study completed as outpt will eval for dc today 07/23 D/C SNF Objective: Vital Signs Date Time Temp Pulse Resp B/P Pulse Ox O2 Delivery O2 Flow Rate FiO2 07/23/16 06:00 82 07/23/16 05:00 80 07/23/16 04:49 98 35 07/23/16 04:00 82 07/23/16 03:37 80 18 151/86 99 07/23/16 03:37 99 Bi-Pap 35 07/23/16 03:00 85 07/23/16 02:00 92 07/23/16 01:39 98 35 07/23/16 01:15 99 Nasal Cannula 2.00 07/23/16 01:00 86 07/23/16 00:00 86 07/22/16 23:30 89 16 135/73 98 07/22/16 23:30 98 Nasal Cannula 2.00 07/22/16 23:00 92 07/22/16 22:00 100 07/22/16 21:58 94 Nasal Cannula 2.00 07/22/16 21:00 96 07/22/16 20:00 98 07/22/16 20:00 94 Room Air 07/22/16 20:00 98.7 95 18 143/63 94 07/22/16 19:00 94 07/22/16 18:00 94 07/22/16 17:00 94 07/22/16 16:00 Room Air 07/22/16 16:00 98.2 76 18 130/69 94 07/22/16 16:00 83 07/22/16 15:00 84 07/22/16 14:00 82 07/22/16 13:00 83 07/22/16 12:00 98.6 83 16 130/73 97 07/22/16 12:00 81 07/22/16 12:00 Nasal Cannula 2.00 35 07/22/16 11:00 84 07/22/16 10:00 90 Result Diagram: 07/21/16 0630 07/22/16 1137 (1) S/P MVR (mitral valve replacement) (2) S/P AVR (aortic valve replacement) Plan: ASA, amiodarone, BB wean 02, pulm toileting OOB/ PT wean 02 coumadin / on hold today , INR 3.4/ await INR level (3) Hypertension Plan: controlled (4) Hypothyroidism Plan: home meds / TSH 1.3 (5) Hyperlipemia Plan: on statin (6) Diabetes mellitus Plan: insulin sliding scale / 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
[2016-07-23 11:28] LABS: INTERNATIONAL NORMALIZED RATIO 1.9 RATIO; PROTHROMBIN TIME - PATIENT 21.2 SEC (9.8-11.6)
--- NOTE | 2016-07-23 12:46 | HHI.PR ---
Addendum to Inpatient Note Additional Information chart reviewed pt remains afebrile, clinically improving off abx will sign off please reconsult if furhteher questions Mary Khan MD Jul 23, 2016 12:46
[2016-07-23] MEDS ORDERED: WARFARIN SOD 2 MG TAB PO ONE (16:00)
--- NOTE | 2016-07-23 19:30 | HHI.PR ---
Subjective Remarks alert less SOB CXRAY DECREASE RUL PNA Objective Vital Signs Date Time Temp Pulse Resp B/P Pulse Ox O2 Delivery O2 Flow Rate FiO2 07/23/16 18:04 90 07/23/16 17:12 106 07/23/16 16:00 90 07/23/16 15:50 98.0 96 20 114/60 94 07/23/16 15:50 Room Air 07/23/16 15:00 85 07/23/16 14:00 88 07/23/16 13:08 86 07/23/16 12:00 94 07/23/16 11:40 Room Air 07/23/16 11:40 97.8 78 18 148/80 93 07/23/16 11:00 81 07/23/16 10:00 96 07/23/16 09:00 120 07/23/16 08:00 94 07/23/16 07:24 95 21 07/23/16 07:00 Room Air 07/23/16 07:00 97.2 81 20 123/62 93 07/23/16 07:00 80 07/23/16 06:00 82 07/23/16 05:00 80 07/23/16 04:49 98 35 07/23/16 04:00 82 07/23/16 03:37 80 18 151/86 99 07/23/16 03:37 99 Bi-Pap 35 07/23/16 03:00 85 07/23/16 02:00 92 07/23/16 01:39 98 35 07/23/16 01:15 99 Nasal Cannula 2.00 07/23/16 01:00 86 07/23/16 00:00 86 07/22/16 23:30 89 16 135/73 98 07/22/16 23:30 98 Nasal Cannula 2.00 07/22/16 23:00 92 07/22/16 22:00 100 07/22/16 21:58 94 Nasal Cannula 2.00 07/22/16 21:00 96 07/22/16 20:00 98 07/22/16 20:00 94 Room Air 07/22/16 20:00 98.7 95 18 143/63 94 I/O 07/22/16 07/22/16 07/22/16 07/23/16 07/23/16 07/23/16 07:00 15:00 23:00 07:00 15:00 23:00 Intake Total 480 ml 780 ml 250 ml 480 ml Output Total 200 ml Balance 480 ml 780 ml 250 ml 280 ml Intake Oral 480 ml 780 ml 250 ml 480 ml Output Urine Total 200 ml # Voids 2 4 2 3 # Bowel Movements 0 0 0 3 Result Diagram: 07/21/16 0630 07/22/16 1137 Procedures 1. Aortic Valve Replacement with a 21mm Mosaic Cinch II Tissue valve. 2. Mitral Valve Replacement with a 25 mm Mosaic Cinch Tissue Valve. 3. Septal Myomectomy 07/13 Medications and IVs GENERAL: SKIN: Warm and dry. HEAD: Atraumatic. Normocephalic. EYES: Pupils equal and round. No scleral icterus. No injection or drainage. ENT: No nasal bleeding or discharge. Mucous membranes pink and moist. NECK: Trachea midline. No JVD. CARDIOVASCULAR: Regular rate and rhythm. RESPIRATORY: No accessory muscle use. Clear to auscultation. Breath sounds equal bilaterally. GASTROINTESTINAL: Abdomen soft, non-tender, nondistended. Hepatic and splenic margins not palpable. MUSCULOSKELETAL: Extremities without clubbing, cyanosis, or edema. No obvious deformities. NEUROLOGICAL: Awake and alert. No obvious cranial nerve deficits. Motor grossly within normal limits. Five out of 5 muscle strength in the arms and legs. Normal speech. PSYCHIATRIC: Appropriate mood and affect; insight and judgment normal. Assessment and Plan Assessment and Plan ASS: S/P AVR, MVR PNA RESPIRATY FAILURE DM AFIB PLAN O2 ANTIBX PULM TOILET Boone Shook MD Jul 23, 2016 19:30
[2016-07-23] MEDS: BUDESONIDE-FORMOTEROL 160/4.5 MCG INHALER INH SCH (22:06)
[2016-07-23] MEDS: PANTOPRAZOLE SODIUM 40 MG VIAL IV PUSH SCH (22:09)
[2016-07-24] VITALS (32 sets, daily range): BP systolic 115–143; BP diastolic 42–79; PULSE 74–106; RESP 18–20; TEMP 97–99.2; O2SAT 92–100
[2016-07-24] MEDS: INSULIN ASPART SUPPLEMENTAL SCALE SQ SCH ×4 (05:52→21:00)
[2016-07-24] MEDS: LEVOTHYROXINE SODIUM 125 MCG TAB PO SCH (06:23)
--- NOTE | 2016-07-24 07:47 | PD.CAR.PN ---
CVT Progress Note Subjective/Hospital Course: 66/ female hx worsening dyspnea x 2 months , underwent ECHO showing severe , moderate Mitral stenosis EF 60% , cardiac cath revealed no evidence of coronary artery disease PMH: HLP, HTN, hypothyroidism, DM surgery: . 07/13 Aortic Valve Replacement with a 21mm Mosaic Cinch II Tissue valve. Mitral Valve Replacement with a 25 mm Mosaic Cinch Tissue Valve. Septal Myomectomy had some immediate postop tongue swelling, minimal cuff leak last pm, was followed by CCM given decadron q6hr, improved 07/14 extubated around 7am to NRB, very anxious , speaking alot of latvian and bible verses , anxiety improved when family arrived this am weaned off insulin gtt, get pt OOB, keep in CVICU until this afternoon, or weaned of high 02 requirement aggressive pulm toielting , CXR noted , left lower lobe consolidation 07/15 pt sleepy , needs aggressive pulm toielting add scheduled diuresis , dc narcotics, use ultram for pain family at bedside continue PT / OOB leave chest tubes in / drained 200cc/ 12 hrs pt will need to be started on coumadin for 4 weeks / AVR/MVR tissue valve / when chest tubes out start metformin 07/16/16 Sleepy today, not ambulating well 07/17/16 Lethargic, dyspneic 07/18 pt went into afib with RVR / amiodarone bolus and gtt started additional mag pt has poor cough effort, needs aggressive pulm toileting no leukocytosis or fever, contineu diuresis eval for rehab at discharge start coumadin this pm 1600 pt still very lethargic, unable to stand without full assistance further labs pending, ECHO report pending will transfer pt to ICU for closer observation remains in Afib rate improved / on amiodarone gtt 07/19 pt remains in afib rate controlled will change to po amiodarone appreciate CCM, and pulm will need outpt eval for sleep study continue bipap prn and at night concern for developing right upper lobe infiltrate ABX per ID 07/20 up in chair, more alert bicarb on ABG and serum improved + BM. prevena dressing removed continue Bipap at night and prn will need rehab placement at discharge 07/21 pt became very SOB this am , while in chair insp / exp wheezing . started on symbicort and short course IV steroids CO2 on serum 32 from 38, will hold on diamox, call placed to Dr Laura more lethargic, sleepy today from yesterday , despite Bipap at night and PRN HOB up will stop lasix, bolus with 250cc NS f/u labs in am and cxr 07/22 more awake and alert pt seen by Dr Shook ok to dc from his standpoint waiting on rehab/ recommend Bipap at night if possible until sleep study completed as outpt will eval for dc today 07/23 D/C SNF 07/24 Doing better Having multiple BMs. Will check stool analysis D/C Monday per Case management Objective: Vital Signs Date Time Temp Pulse Resp B/P Pulse Ox O2 Delivery O2 Flow Rate FiO2 07/24/16 06:00 94 07/24/16 05:00 82 07/24/16 04:00 78 07/24/16 03:38 81 18 140/73 98 07/24/16 03:38 95 Nasal Cannula 2.00 07/24/16 03:37 96 Nasal Cannula 2.00 07/24/16 03:00 74 07/24/16 02:00 76 07/24/16 01:00 76 07/24/16 00:00 76 07/24/16 00:00 100 35 07/23/16 23:44 83 18 143/81 98 07/23/16 23:44 96 Bi-Pap 35 07/23/16 23:00 92 07/23/16 22:17 95 35 07/23/16 22:00 96 07/23/16 21:00 102 07/23/16 20:00 92 07/23/16 19:30 97.9 92 18 119/56 96 07/23/16 19:30 96 Room Air 07/23/16 19:00 92 07/23/16 18:04 90 07/23/16 17:12 106 07/23/16 16:00 90 07/23/16 15:50 98.0 96 20 114/60 94 07/23/16 15:50 Room Air 07/23/16 15:00 85 07/23/16 14:00 88 07/23/16 13:08 86 07/23/16 12:00 94 07/23/16 11:40 Room Air 07/23/16 11:40 97.8 78 18 148/80 93 4/22/17 11:00 81 07/23/16 10:00 96 07/23/16 09:00 120 07/23/16 08:00 94 Result Diagram: 07/21/1630 07/22/16 1137 (1) S/P MVR (mitral valve replacement) (2) S/P AVR (aortic valve replacement) Plan: ASA, amiodarone, BB wean 02, pulm toileting OOB/ PT wean 02 coumadin / on hold today , INR 3.4/ await INR level (3) Hypertension Plan: controlled (4) Hypothyroidism Plan: home meds / TSH 1.3 (5) Hyperlipemia Plan: on statin (6) Diabetes mellitus Plan: insulin sliding scale / 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
[2016-07-24] MEDS: DOCUSATE SODIUM 100 MG CAP PO SCH ×2 (09:00→21:00)
[2016-07-24] MEDS: SENNOSIDES 8.6 MG TAB PO SCH ×2 (09:00→21:00)
[2016-07-24] MEDS: POLYETHYLENE GLYCOL 17 GM PKG PO SCH ×2 (09:00→21:00)
[2016-07-24] MEDS: AMIODARONE 200 MG TAB PO SCH ×2 (09:06→21:04)
[2016-07-24] MEDS: MULTIVITAMINS/MINERALS THERAPEUTIC TAB PO SCH (09:06)
[2016-07-24] MEDS: ASPIRIN 81 MG CHEW TAB PO SCH (09:06)
[2016-07-24] MEDS: METOPROLOL TARTRATE 50 MG TAB PO SCH ×2 (09:07→21:04)
[2016-07-24] MEDS: metFORMIN HCL 500 MG TAB PO SCH ×2 (09:07→18:02)
[2016-07-24] MEDS: ONDANSETRON HCL 4 MG/2 ML VIAL IV PUSH PRN (11:06)
[2016-07-24 11:44] LABS: INTERNATIONAL NORMALIZED RATIO 1.5 RATIO; PROTHROMBIN TIME - PATIENT 17.4 SEC (9.8-11.6)
--- NOTE | 2016-07-24 13:03 | HHI.PR ---
Subjective Remarks alert less SOB C/O Diarrhea Objective Vital Signs Date Time Temp Pulse Resp B/P Pulse Ox O2 Delivery O2 Flow Rate FiO2 07/24/16 12:00 77 07/24/16 11:40 94 Room Air 07/24/16 11:40 97.8 83 20 115/47 94 07/24/16 11:00 84 07/24/16 10:00 102 07/24/16 09:00 106 07/24/16 08:00 96 07/24/16 07:52 96 Nasal Cannula 2.00 07/24/16 07:35 100 Nasal Cannula 2.00 07/24/16 07:35 97.7 89 20 124/42 100 07/24/16 07:00 90 07/24/16 06:00 94 07/24/16 05:00 82 07/24/16 04:00 78 07/24/16 03:38 81 18 140/73 98 07/24/16 03:38 95 Nasal Cannula 2.00 07/24/16 03:37 96 Nasal Cannula 2.00 07/24/16 03:00 74 07/24/16 02:00 76 07/24/16 01:00 76 07/24/16 00:00 76 07/24/16 00:00 100 35 07/23/16 23:44 83 18 143/81 98 07/23/16 23:44 96 Bi-Pap 35 07/23/16 23:00 92 07/23/16 22:17 95 35 07/23/16 22:00 96 07/23/16 21:00 102 07/23/16 20:00 92 07/23/16 19:30 97.9 92 18 119/56 96 07/23/16 19:30 96 Room Air 07/23/16 19:00 92 07/23/16 18:04 90 07/23/16 17:12 106 07/23/16 16:00 90 07/23/16 15:50 98.0 96 20 114/60 94 07/23/16 15:50 Room Air 07/23/16 15:00 85 07/23/16 14:00 88 07/23/16 13:08 86 I/O 07/23/16 07/23/16 07/23/16 07/24/16 07/24/16 07/24/16 07:00 15:00 23:00 07:00 15:00 23:00 Intake Total 250 ml 480 ml 300 ml Output Total 200 ml Balance 250 ml 280 ml 300 ml Intake Oral 250 ml 480 ml 300 ml Output Urine Total 200 ml # Voids 2 3 1 # Bowel Movements 0 3 1 Result Diagram: 07/21/16 0630 07/22/16 1137 Procedures 1. Aortic Valve Replacement with a 21mm Mosaic Cinch II Tissue valve. 2. Mitral Valve Replacement with a 25 mm Mosaic Cinch Tissue Valve. 3. Septal Myomectomy 07/13 Assessment and Plan Assessment and Plan ASS: S/P AVR, MVR PNA RESPIRATY FAILURE DM AFIB PLAN O2 f/u cxray PULM TOILET Discussed Condition With GENERAL: SKIN: Warm and dry. HEAD: Atraumatic. Normocephalic. EYES: Pupils equal and round. No scleral icterus. No injection or drainage. ENT: No nasal bleeding or discharge. Mucous membranes pink and moist. NECK: Trachea midline. No JVD. CARDIOVASCULAR: Regular rate and rhythm. RESPIRATORY: No accessory muscle use. Clear to auscultation. Breath sounds equal bilaterally. GASTROINTESTINAL: Abdomen soft, non-tender, nondistended. Hepatic and splenic margins not palpable. MUSCULOSKELETAL: Extremities without clubbing, cyanosis, or edema. No obvious deformities. NEUROLOGICAL: Awake and alert. No obvious cranial nerve deficits. Motor grossly within normal limits. Five out of 5 muscle strength in the arms and legs. Normal speech. PSYCHIATRIC: Appropriate mood and affect; insight and judgment normal. Boone Shook MD Jul 24, 2016 13:03
[2016-07-24 15:15] LABS: C. DIFF EPI 027 PRESUMPTIVE NEGATIVE (NEGATIVE); C. DIFF TOXIN PCR NEGATIVE (NEGATIVE)
[2016-07-24 15:19] LABS: BLOOD, URINE NEG (NEG); COMMENT (UR) CULT NOT INDICATED; CULTURE IF INDICATED CULT NOT INDICATED; GLUCOSE,URINE NEG (NEG); KETONE, URINE NEG (NEG); MUCUS URINE FEW /lpf (OCC); NITRITE,URINE NEG (NEG); PH, URINE 5.5 (5.0-8.5); SQUAMOUS EPITHELIAL CELL URINE 1 /hpf (0-5); URINE COLOR YELLOW (YELLW/STRAW)
[2016-07-24] MEDS ORDERED: WARFARIN SOD 2.5 MG TAB PO ONE (16:00)
[2016-07-24] MEDS: PANTOPRAZOLE SODIUM 40 MG VIAL IV PUSH SCH (21:04)
[2016-07-24] MEDS: BUDESONIDE-FORMOTEROL 160/4.5 MCG INHALER INH SCH (21:04)
[2016-07-25] VITALS (16 sets, daily range): BP systolic 111–122; BP diastolic 48–63; PULSE 79–136; RESP 20; TEMP 98.1–98.4; O2SAT 93–98
[2016-07-25] MEDS: LEVOTHYROXINE SODIUM 125 MCG TAB PO SCH (05:47)
[2016-07-25] MEDS: INSULIN ASPART SUPPLEMENTAL SCALE SQ SCH ×2 (05:47→12:06)
[2016-07-25] MEDS: POLYETHYLENE GLYCOL 17 GM PKG PO SCH (09:00)
[2016-07-25] MEDS: SENNOSIDES 8.6 MG TAB PO SCH (09:00)
[2016-07-25] MEDS: DOCUSATE SODIUM 100 MG CAP PO SCH (09:00)
[2016-07-25] MEDS: MULTIVITAMINS/MINERALS THERAPEUTIC TAB PO SCH (09:00)
[2016-07-25] MEDS: METOPROLOL TARTRATE 50 MG TAB PO SCH (09:04)
[2016-07-25] MEDS: ASPIRIN 81 MG CHEW TAB PO SCH (09:04)
[2016-07-25] MEDS: AMIODARONE 200 MG TAB PO SCH (09:04)
[2016-07-25] MEDS: metFORMIN HCL 500 MG TAB PO SCH (09:04)
--- NOTE | 2016-07-25 12:01 | PD.CAR.PN ---
CVT Progress Note Subjective/Hospital Course: 66/ female hx worsening dyspnea x 2 months , underwent ECHO showing severe , moderate Mitral stenosis EF 60% , cardiac cath revealed no evidence of coronary artery disease PMH: HLP, HTN, hypothyroidism, DM surgery: . 07/13 Aortic Valve Replacement with a 21mm Mosaic Cinch II Tissue valve. Mitral Valve Replacement with a 25 mm Mosaic Cinch Tissue Valve. Septal Myomectomy had some immediate postop tongue swelling, minimal cuff leak last pm, was followed by CCM given decadron q6hr, improved 07/14 extubated around 7am to NRB, very anxious , speaking alot of [place]ian and bible verses , anxiety improved when family arrived this am weaned off insulin gtt, get pt OOB, keep in CVICU until this afternoon, or weaned of high 02 requirement aggressive pulm toielting , CXR noted , left lower lobe consolidation 07/15 pt sleepy , needs aggressive pulm toielting add scheduled diuresis , dc narcotics, use ultram for pain family at bedside continue PT / OOB leave chest tubes in / drained 200cc/ 12 hrs pt will need to be started on coumadin for 4 weeks / AVR/MVR tissue valve / when chest tubes out start metformin 07/16/16 Sleepy today, not ambulating well 07/17/16 Lethargic, dyspneic 07/18 pt went into afib with RVR / amiodarone bolus and gtt started additional mag pt has poor cough effort, needs aggressive pulm toileting no leukocytosis or fever, contineu diuresis eval for rehab at discharge start coumadin this pm 1600 pt still very lethargic, unable to stand without full assistance further labs pending, ECHO report pending will transfer pt to ICU for closer observation remains in Afib rate improved / on amiodarone gtt 07/19 pt remains in afib rate controlled will change to po amiodarone appreciate CCM, and pulm will need outpt eval for sleep study continue bipap prn and at night concern for developing right upper lobe infiltrate ABX per ID 07/20 up in chair, more alert bicarb on ABG and serum improved + BM. prevena dressing removed continue Bipap at night and prn will need rehab placement at discharge 07/21 pt became very SOB this am , while in chair insp / exp wheezing . started on symbicort and short course IV steroids CO2 on serum 32 from 38, will hold on diamox, call placed to Dr Laura more lethargic, sleepy today from yesterday , despite Bipap at night and PRN HOB up will stop lasix, bolus with 250cc NS f/u labs in am and cxr 07/22 more awake and alert pt seen by Dr Shook ok to dc from his standpoint waiting on rehab/ recommend Bipap at night if possible until sleep study completed as outpt will eval for dc today 07/23 D/C SNF 07/24 Doing better Having multiple BMs. Will check stool analysis D/C Monday per Case management 07/25 bed availabe at rehab/ will dc today give coumadin dose prior to dc Objective: GENERAL: SKIN: Warm and dry.incision intact and well approximated to chest HEAD: Normocephalic. EYES: No scleral icterus. No injection or drainage. NECK: Supple, trachea midline. No JVD or lymphadenopathy. CARDIOVASCULAR: irregular rate and rhythm Regular rate and rhythm without murmurs, gallops, or rubs. RESPIRATORY: Breath sounds equal bilaterally. No accessory muscle use. GASTROINTESTINAL: Abdomen soft, non-tender, nondistended. MUSCULOSKELETAL: No cyanosis, or edema. BACK: Nontender without obvious deformity. No CVA tenderness. Vital Signs Date Time Temp Pulse Resp B/P Pulse Ox O2 Delivery O2 Flow Rate FiO2 07/25/16 07:20 98.2 90 20 122/48 97 07/25/16 07:20 97 Nasal Cannula 1.00 07/25/16 07:00 86 07/25/16 06:00 83 07/25/16 05:00 84 07/25/16 04:00 92 07/25/16 03:00 98.4 89 20 111/63 98 07/25/16 03:00 98 Nasal Cannula 1.00 07/25/16 03:00 84 07/25/16 02:00 84 07/25/16 01:00 79 07/25/16 00:00 89 07/24/16 23:45 96 35 07/24/16 23:00 94 07/24/16 23:00 97.0 84 18 139/71 98 07/24/16 23:00 98 Bi-Pap 35 07/24/16 22:00 82 07/24/16 21:00 92 07/24/16 20:28 99 35 07/24/16 20:00 94 07/24/16 19:00 92 Nasal Cannula 1.00 07/24/16 19:00 99.2 105 20 143/76 92 07/24/16 19:00 94 07/24/16 18:04 101 07/24/16 17:00 96 07/24/16 16:00 90 07/24/16 15:40 97.8 81 18 137/79 99 07/24/16 15:40 99 Nasal Cannula 1.00 07/24/16 15:00 83 07/24/16 14:00 88 07/24/16 13:00 81 07/24/16 12:00 77 Result Diagram: 07/21/16 0630 07/22/16 1137 (1) S/P MVR (mitral valve replacement) (2) S/P AVR (aortic valve replacement) Plan: ASA, amiodarone, BB wean 02, pulm toileting OOB/ PT wean 02 coumadin / on hold today , INR 1.4 resume coumadin dc to rehab (3) Hypertension Plan: controlled (4) Hypothyroidism Plan: home meds / TSH 1.3 (5) Hyperlipemia Plan: on statin (6) Diabetes mellitus Plan: insulin sliding scale / 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
[2016-07-25] MEDS: ONDANSETRON HCL 4 MG/2 ML VIAL IV PUSH PRN (12:06)
[2016-07-25 12:46] LABS: INTERNATIONAL NORMALIZED RATIO 1.9 RATIO; PROTHROMBIN TIME - PATIENT 22.1 SEC (9.8-11.6)
[2016-07-25] MEDS ORDERED: DO NOT ADM ANY ANTICOAGULANT DRUGS OTHER PRN (13:00)
[2016-07-25] MEDS ORDERED: ULTR50TA5 PO (13:16)
[2016-07-25] MEDS ORDERED: WARFARIN SOD 2.5 MG TAB PO SCH ×3 (14:00→16:00)
== END 2016-07-25 14:19 | DRG 219 ==
LOC: HSDI 07-13 05:59 → HCVR 07-13 14:39 → HCIN 07-14 15:15 → HCVR 07-18 18:00 → N03B 07-19 11:34 → N03A 07-19 12:22 → HCIN 07-20 17:23
PROVIDERS: ADMIT Thoracic Surgery (Cardiothoracic Vascular Surgery); ATTEND Thoracic Surgery (Cardiothoracic Vascular Surgery)
PROC: 02BM0ZZ Excision of Ventricular Septum, Open Approach (ICD-10-PCS; 2016-07-13)
PROC: 5A1221Z Performance of Cardiac Output, Continuous (ICD-10-PCS; 2016-07-13)
PROC: B246ZZ4 Ultrasonography of Right and Left Heart, Transesophageal (ICD-10-PCS; 2016-07-13)
PROC: 5A1935Z Respiratory Ventilation, Less than 24 Consecutive Hours (ICD-10-PCS; 2016-07-13)
PROC: 02RF08Z Replacement of Aortic Valve with Zooplastic Tissue, Open Approach (ICD-10-PCS; principal; 2016-07-13 07:05)
PROC: 02RG08Z Replacement of Mitral Valve with Zooplastic Tissue, Open Approach (ICD-10-PCS; 2016-07-13 07:05)
PROC: 5A09557 Assistance with Respiratory Ventilation, Greater than 96 Consecutive Hours, Continuous Positive Airway Pressure (ICD-10-PCS; 2016-07-18)
DX: I08.0 Rheumatic disorders of both mitral and aortic valves (principal); G92 Toxic encephalopathy; J96.02 Acute respiratory failure with hypercapnia; J96.01 Acute respiratory failure with hypoxia; E87.2 Acidosis; J18.9 Pneumonia, unspecified organism; Q24.4 Congenital subaortic stenosis; Z68.42 Body mass index [BMI] 45.0-49.9, adult; I48.91 Unspecified atrial fibrillation; E03.9 Hypothyroidism, unspecified; E11.9 Type 2 diabetes mellitus without complications; E78.5 Hyperlipidemia, unspecified; R53.83 Other fatigue; E66.01 Morbid (severe) obesity due to excess calories; G47.33 Obstructive sleep apnea (adult) (pediatric); I10 Essential (primary) hypertension; D64.9 Anemia, unspecified; M19.90 Unspecified osteoarthritis, unspecified site; R60.0 Localized edema; I27.2 Other secondary pulmonary hypertension; K59.00 Constipation, unspecified; M81.0 Age-related osteoporosis without current pathological fracture; Z79.84 Long term (current) use of oral hypoglycemic drugs
CPT/HCPCS: 36430; 36600; 71010; 71250; 76937; 80048; 80053; 80076; 81001; 82140; 82805; 82948; 83605; 83735; 83880; 84100; 84439; 84443; 84481; 85014; 85025; 85027; 85610; 86850; 86900; 86901; 86920; 87015; 87040; 87070; 87102; 87116; 87205; 87206; 87493; 87641; 87804; 88305; 88311; 93005; 93306; 93318; 94002; 94003; 94150; 94640; 94664; 94667; 94668; C9113; J0131; J0171; J0282; J0690; J1100; J1120; J1644; J1650; J1815; J1885; J1940; J2150; J2250; J2370; J2405; J2543; J2720; J2930; J3010; J3370; J3475; J3480; J7050; J7120; P9016; P9045; P9047